=== PATIENT | male | born 1940 | race Caucasian/White ===

== ENCOUNTER 2017-11-27 07:05 | Day surgery (SDC) | payer MEDICARE, BC ==
[2017-11-22 09:04] VITALS: BMI 31.1
[~2017-11-27 07:05] MED LIST: LACTATED RINGERS 1,000 ML IV SCH; MOXIFLOXACIN HCL 0.5% DROPS 3 ML BTL OP ONE; PHENYLEPHRINE 2.5% OPHTH DRP 2ML OP NR; TETRACAINE 0.5% OPHTH (PF) DROPS 4 ML BTL OP ONE; TIMOLOL 0.5% OPHTH DROPS 5 ML BTL OP ONE
[2017-11-27 07:18] VITALS: TEMP 99.1
[2017-11-27] MEDS: CYCLOPENTOLATE 1% OPHTH SOLN 2 ML BTL OP ONE ×3 (07:26→07:39)
[2017-11-27] MEDS ORDERED: MIDAZOLAM 2 MG/2 ML VIAL ONE (08:19)
[2017-11-27] MEDS ORDERED: fentaNYL (PF) 50 MCG/ML 2 ML AMP ONE (08:19)
[2017-11-27] MEDS ORDERED: HYALURONATE SODIUM INTRAOCULAR 1 EACH SYRINGE (12MG/ML) INTRAOCULA ONE (08:33)
[2017-11-27] MEDS ORDERED: LIDOCAINE 1% (PF) 10MG/ML VIAL SQ ONE (08:34)
[2017-11-27] MEDS ORDERED: BALANCED SALT IRRIG SOLN COMB2 15 ML IRRIG.SOLN INTRAOCULA ONE (08:34)
[2017-11-27] MEDS ORDERED: EPINEPHrine (PF) 0.3 ML in BALANCED SALT IRRIG SOLN COMB2 500 ML IRRIGATION ONE (08:35)
--- NOTE | 2017-11-27 08:43 | P.OP ---
Date of Procedure: 11/27/17 Preoperative Diagnosis: NS & CS Postoperative Diagnosis: same Procedure(s) Performed: PIOL, OD Implants: PCB00 22.00 Anesthesia: MAC Surgeon: Bob Cruz Estimated Blood Loss (ml): 0 Pathology: none sent Condition: stable Disposition: same day Indications for Procedure: BLURRY VISION Operative Findings: No complications
[2017-11-27 09:00] VITALS: PULSE 48
[2017-11-27 09:07] VITALS: BP 136/84; RESP 18
--- NOTE | 2017-11-27 19:41 | OP ---
OPERATIVE REPORT DATE OF PROCEDURE: 11/27/2017 PREOPERATIVE DIAGNOSES:: Nuclear sclerosis, cortical sclerosis. POSTOPERATIVE DIAGNOSIS:: Same. OPERATION:: Clear cornea phacoemulsification of cataract right eye. ESTIMATED BLOOD LOSS:: Zero. SPECIMEN TAKEN:: None. NARRATIVE:: After obtaining the appropriate consent, the patient was brought to the Operating Room where the patient was placed under cardiac monitoring and prepped and draped in the usual sterile manner. At the 11 o'clock position, a 15 degree super sharp blade was used to create a paracentesis followed by instillation of 1% Xylocaine MPF 50:50 mix with BSS into the anterior chamber. This was followed by Amvisc to stabilize the anterior chamber. At the 9 o'clock position, a self-sealing corneal flap incision was created using 2.8 mm jaclyn keratome. A cystatome was used to initiate a continuous tear capsulorrhexis which was completed with the Utrata forceps. A Binkhorst cannula was used to hydrodissect the lens nucleus followed by hydrodelineation. Phacoemulsification of the lens was performed utilizing phacochop in 14.9 Seconds at 17 % power. The remaining cortical material was removed using the irrigation aspiration mode followed by additional 1% Xylocaine MPF into the anterior chamber followed by viscoelastic to stabilize the capsular bag. An FAREED PCB00 22.0-diopter posterior chamber lens was placed into the capsular bag without difficulty. The remaining viscoelastic material was removed from the anterior chamber with the irrigation/aspiration. Balanced salt solution was used to normalize the intraocular pressure. The incision was checked for watertight integrity. The patient then received two drops of 0.5% timolol followed by two drops Vigamox, was lightly patched and shielded in the usual manner. There were no complications from the procedure. The patient tolerated the procedure well and was returned to recovery in good condition. MMODL / IJN: [id number] /
== END 2017-11-27 09:34 | disposition home or self-care (01) ==
LOC: OR 07:05
PROVIDERS: ATTEND Ophthalmology
DX: H25.13 Age-related nuclear cataract, bilateral (principal); H16.223 Keratoconjunctivitis sicca, not specified as Sjogren's, bilateral; H40.003 Preglaucoma, unspecified, bilateral; H52.03 Hypermetropia, bilateral; H52.4 Presbyopia; H01.009 Unspecified blepharitis unspecified eye, unspecified eyelid; F17.290 Nicotine dependence, other tobacco product, uncomplicated; E03.9 Hypothyroidism, unspecified; F41.9 Anxiety disorder, unspecified; Z79.899 Other long term (current) drug therapy; Z88.5 Allergy status to narcotic agent
CPT/HCPCS: 66984; C1780; J2250; J0171; J3010; J2001

== ENCOUNTER 2017-12-11 08:01 | Day surgery (SDC) | payer MEDICARE, BC ==
[2017-12-06 12:01] VITALS: BMI 31.1
[~2017-12-11 08:01] MED LIST changes: -LACTATED RINGERS 1,000 ML IV SCH; -PHENYLEPHRINE 2.5% OPHTH DRP 2ML OP NR
[2017-12-11] MEDS ORDERED: LACTATED RINGERS 1,000 ML IV SCH (08:14)
[2017-12-11 08:25] VITALS: RESP 16; TEMP 98.2
[2017-12-11] MEDS ORDERED: LIDOCAINE 1% 20 ML VIAL (10MG/ML) FOR IV START INTRADERMA ONE (08:31)
[2017-12-11] MEDS: CYCLOPENTOLATE 1% OPHTH SOLN 2 ML BTL OP ONE ×3 (08:34→08:46)
[2017-12-11] MEDS: PHENYLEPHRINE 2.5% OPHTH DRP 2ML OP NR ×3 (08:37→08:49)
[2017-12-11] MEDS ORDERED: fentaNYL (PF) 50 MCG/ML 2 ML AMP ONE (09:48)
[2017-12-11] MEDS ORDERED: MIDAZOLAM 2 MG/2 ML VIAL ONE (09:48)
[2017-12-11] MEDS ORDERED: BALANCED SALT IRRIG SOLN COMB2 15 ML IRRIG.SOLN INTRAOCULA ONE (09:52)
[2017-12-11] MEDS ORDERED: HYALURONATE SODIUM INTRAOCULAR 1 EACH SYRINGE (12MG/ML) INTRAOCULA ONE (09:52)
[2017-12-11] MEDS ORDERED: LIDOCAINE 1% (PF) 10MG/ML VIAL MISCELLANE ONE (09:53)
[2017-12-11] MEDS ORDERED: EPINEPHrine (PF) 0.3 ML in BALANCED SALT IRRIG SOLN COMB2 500 ML IRRIGATION ONE (09:53)
--- NOTE | 2017-12-11 10:14 | P.OP ---
Date of Procedure: 12/11/17 Preoperative Diagnosis: NS & CS Postoperative Diagnosis: same Procedure(s) Performed: PIOL, OS Implants: PCB00 22.00 Anesthesia: MAC Surgeon: Bob Cruz Estimated Blood Loss (ml): 0 Pathology: none sent Condition: stable Disposition: same day Indications for Procedure: blurry vision Operative Findings: No complications
[2017-12-11 10:34] VITALS: BP 135/77; PULSE 52
--- NOTE | 2017-12-11 14:33 | OP ---
OPERATIVE REPORT DATE OF SURGERY: 12/11/17 SURGEON: Dr. Bob Cruz PREOPERATIVE DIAGNOSIS:: Nuclear sclerosis. Cortical sclerosis. POSTOPERATIVE DIAGNOSIS:: Nuclear sclerosis, cortical sclerosis. OPERATION:: Clear cornea phacoemulsification of cataract OS eye. ESTIMATED BLOOD LOSS:: Zero. SPECIMEN TAKEN:: None. NARRATIVE:: After obtaining the appropriate consent, the patient was brought to the Operating Room where the patient was placed under cardiac monitoring and prepped and draped in the usual sterile manner. At the 5 o'clock position a 15 degree super sharp blade was used to create a paracentesis followed by instillation of 1% Xylocaine MPF 50:50 mix with BSS into the anterior chamber. This was followed by Amvisc to stabilize the anterior chamber. At the 3 o'clock position a self-sealing corneal flap incision was created using 2.8 mm jaclyn keratome. A cystatome was used to initiate a continuous tear capsulorrhexis which was completed with the Utrata forceps. A Binkhorst cannula was used to hydrodissect the lens nucleus followed by hydrodelineation. Phacoemulsification of the lens was performed utilizing phacochop in 17.41 seconds at 20% power. The remaining cortical material was removed using the irrigation aspiration mode followed by additional 1% Xylocaine MPF into the anterior chamber followed by viscoelastic to stabilize the capsular bag. An FAREED PZB 00 22.0 diopter posterior chamber lens was placed into the capsular bag without difficulty. The remaining viscoelastic material was removed from the anterior chamber with the irrigation/aspiration. Balanced salt solution was used to normalize the intraocular pressure. The incision was checked for watertight integrity. The patient then received two drops of 0.5% timolol followed by two drops Vigamox, was lightly patched and shielded in the usual manner. There were no complications from the procedure. The patient tolerated the procedure well and was returned to recovery in good condition. MMODL / IJN: [id number] /
== END 2017-12-11 11:06 | disposition home or self-care (01) ==
LOC: OR 08:01
PROVIDERS: ATTEND Ophthalmology
DX: H25.12 Age-related nuclear cataract, left eye (principal); H25.012 Cortical age-related cataract, left eye; H16.223 Keratoconjunctivitis sicca, not specified as Sjogren's, bilateral; H40.003 Preglaucoma, unspecified, bilateral; H52.03 Hypermetropia, bilateral; H52.4 Presbyopia; H01.009 Unspecified blepharitis unspecified eye, unspecified eyelid; Z96.1 Presence of intraocular lens; E03.9 Hypothyroidism, unspecified; F17.290 Nicotine dependence, other tobacco product, uncomplicated; Z79.890 Hormone replacement therapy; Z79.899 Other long term (current) drug therapy; Z88.5 Allergy status to narcotic agent

== ENCOUNTER → 2020-10-18 | Outpatient (CLI) | payer MEDICARE, BC ==
--- NOTE | 2020-10-18 15:32 | XR ---
EXAM TYPE: LUMBAR SPINE X RAY SERIES COMPARISON: NONE HISTORY: Pain TECHNIQUE: 4 views are submitted. FINDINGS: Hypertrophic and degenerative changes at all levels most marked at L3-4, L4-5. Multilevel facet arthr opathy and hypertrophic spurring. No compression deformities. Pedicles intact. Mild diffuse osteopeni a. IMPRESSION: 1. Multilevel degenerative disc disease with severe changes at L3-4 and L4-L5. Foraminal encroachment suspected. Correlate with MRI as quickly warranted.
--- NOTE | 2020-10-18 15:33 | XR ---
EXAMINATION TYPE: XR thoracic spine complete DATE OF EXAM: 10/18/2020 COMPARISON: NONE HISTORY: Pain TECHNIQUE: 3 views submitted FINDINGS: There is multilevel moderate to severe hypertrophic and degenerative disc disease. No compression def ormities. Pedicles intact. Ectasia of the aorta noted. IMPRESSION: 1. Multilevel hypertrophic and degenerative changes.
== END | disposition home or self-care (01) ==
LOC: RADXRMAIN 14:13
PROVIDERS: ATTEND Internal Medicine Geriatric Medicine
DX: M51.36 Other intervertebral disc degeneration, lumbar region (principal); M47.816 Spondylosis without myelopathy or radiculopathy, lumbar region
CPT/HCPCS: 72072; 72100

== ENCOUNTER → 2020-12-02 | Outpatient (CLI) | payer MEDICARE, BC | END | disposition home or self-care (01) | LOC: LABWHC1 13:47 | PROVIDERS: ATTEND Urology | DX: R97.20 Elevated prostate specific antigen [PSA] (principal) | CPT/HCPCS: 36415; 84153 ==

== ENCOUNTER → 2021-02-20 | Outpatient (CLI) | payer MEDICARE ==
--- NOTE | 2021-02-21 09:03 | ECHOF ---
Referral Reason:G45.9 Transient cerebral ischemic attack MEASUREMENTS -------- HEIGHT: 182.9 cm WEIGHT: 110.2 kg BP: RVIDd: 4.6 cm (< 3.3) IVSd: 1.4 cm (0.6 - 1.1) LVIDd: 3.6 cm (3.9 - 5.3) LVPWd: 1.3 cm (0.6 - 1.1) IVSs: 2.2 cm LVIDs: 2.8 cm LVPWs: 1.7 cm LAESV Index (A-L): 19.58 ml/m Ao Diam: 3.6 cm (2.0 - 3.7) AV Cusp: 1.1 cm (1.5 - 2.6) MV EXCURSION: 11.640 mm (> 18.000) MV EF SLOPE: 31 mm/s (70 - 150) EPSS: 0.9 cm MV E Asa: 0.56 m/s MV DecT: 192 ms MV A Asa: 0.81 m/s MV E/A Ratio: 0.69 RAP: 5.00 mmHg RVSP: 30.23 mmHg FINDINGS -------- Sinus rhythm. This was a technically difficult study with suboptimal views. The left ventricular size is normal. There is severe concentric left ventricular hypertrophy. Ove rall left ventricular systolic function is normal with, an EF between 55 - 60 %. The right ventricle is severely enlarged. Normal LA size by volume 22+/-6 ml/m2. The right atrium was not well visualized. 5.0mg of Lumason was utilized for enhancement of images Interatrial and interventricular septum intact. There is moderate aortic valve sclerosis. There is no evidence of aortic regurgitation. There is no evidence of aortic stenosis. No mitral regurgitation. Mild tricuspid regurgitation present. There is no evidence of pulmonary hypertension. The right v entricular systolic pressure, as measured by Doppler, is 30.23mmHg. There is no pulmonic regurgitation present. The aortic root size is normal. IVC Not well visulized. There is no pericardial effusion. CONCLUSIONS -------- 1. The left ventricular size is normal. 2. There is severe concentric left ventricular hypertrophy. 3. Overall left ventricular systolic function is normal with, an EF between 55 - 60 %. 4. The right ventricle is severely enlarged. 5. There is moderate aortic valve sclerosis. 6. Mild tricuspid regurgitation present. AUTOMATIC GRINDING MACHINE OPERATOR: June Garcia RDCS
== END | disposition home or self-care (01) ==
LOC: RADECHMAIN 12:29
PROVIDERS: ATTEND Internal Medicine Geriatric Medicine
DX: I07.1 Rheumatic tricuspid insufficiency (principal)
CPT/HCPCS: 93270; C8929; Q9950; 93306

== ENCOUNTER → 2021-02-24 | Outpatient (CLI) | payer MEDICARE ==
--- NOTE | 2021-02-24 15:13 | US ---
EXAMINATION TYPE: US carotid duplex BILAT DATE OF EXAM: 02/24/2021 COMPARISON: NONE CLINICAL HISTORY: G45.9 Transient cerebral ischemic attack. EXAM MEASUREMENTS: RIGHT: Peak Systolic Velocity (PSV) cm/sec ----- Right CCA: 70.0 ----- Right ICA: 70.4 ----- Right ECA: 59.0 ICA/CCA ratio: 1.0 RIGHT: End Diastole cm/sec ----- Right CCA: 20.6 ----- Right ICA: 29.3 ----- Right ECA: 14.2 LEFT: Peak Systolic Velocity (PSV) cm/sec ----- Left CCA: 87.1 ----- Left ICA: 80.7 ----- Left ECA: 59.8 ICA/CCA ratio: 0.9 LEFT: End Diastole cm/sec ----- Left CCA: 35.0 ----- Left ICA: 36.9 ----- Left ECA: 16.6 VERTEBRALS (direction of flow): Right Vertebral: Antegrade Left Vertebral: Antegrade Rhythm: Normal No significant stenosis. IMPRESSION: No evidence for hemodynamically significant stenosis. Criteria for Assigning % of Stenosis / Diameter reduction (Estimation based on the indirect measurements of the internal carotid artery velocities (ICA PSV). 1. Normal (no stenosis)=ICA PSV < 125 cm/s: ratio < 2.0: ICA EDV<40 cm/s. 2. Less than 50% stenosis=ICA PSV < 125 cm/s: ratio < 2.0: ICA EDV<40 cm/s. 3. 50 to 69% stenosis=ICA PSV of 125 to 230 cm/s: ration 2.0 ? 4.0: ICA EDV 40-100 cm/s. 4. Greater than 70% stenosis to near occlusion= ICA PSV > 230 cm/s: ratio > 4.0: ICA EDV > 100 cm/s. 5. Near occlusion= ICA PSV velocities may be low or undetectable: variable ratio and ICA EDV. 6. Total occlusion=unable to detect flow.
== END | disposition home or self-care (01) ==
LOC: RADUSWWP 14:22
PROVIDERS: ATTEND Internal Medicine Geriatric Medicine
DX: G45.9 Transient cerebral ischemic attack, unspecified (principal)
CPT/HCPCS: 93880

== ENCOUNTER → 2021-04-19 | Outpatient (CLI) | payer MEDICARE ==
[2021-04-19 12:13] LABS: Basophils # (A) 0.04 X 10*3/uL (0.00-0.10); Basophils % (A) 0.6 %; Eosinophils # (A) 0.31 X 10*3/uL (0.04-0.35); HCT 42.8 % (39.6-50.0); Lymphocytes # (A) 2.18 X 10*3/uL (0.90-5.00); Lymphocytes % (A) 34.9 %; MCH 30.5 pg (27.0-32.0); MCHC 32.7 g/dL (32.0-37.0); MCV 93.2 fL (80.0-97.0); Mean Platelet Volume 10.5 fL (9.5-12.2); Monocytes # (A) 0.62 X 10*3/uL (0.20-1.00); Monocytes % (A) 9.9 %; Neutrophils # (A) 3.07 X 10*3/uL (1.80-7.70); Neutrophils % (A) 49.3 %; Platelet Count 239 X 10*3/uL (140-440); RBC 4.59 X 10*6/uL (4.40-5.60); RDW 12.9 % (11.5-14.5); WBC 6.24 X 10*3/uL (4.50-10.00)
--- NOTE | 2021-04-19 12:45 | XR ---
EXAMINATION TYPE: XR chest 2V DATE OF EXAM: 04/19/2021 COMPARISON: Chest x-ray dated 12/08/2014 HISTORY: R06.02 TECHNIQUE: Frontal and lateral views of the chest are obtained. FINDINGS: There is no focal air space opacity, pleural effusion, or pneumothorax seen. The cardiac silhouette size is within normal limits. The osseous structures are intact, postop changes are pres ent in the right shoulder. IMPRESSION: No acute cardiopulmonary process.
[2021-04-19 14:40] LABS: African American GFR (CKD) 64.9 (60.0-200.0); Albumin 4.2 g/dL (3.80-4.90); Albumin/Globulin Ratio 1.83 (1.60-3.17); Anion Gap 6.3 mmol/L (4.00-12.00); Calcium 8.8 mg/dL (8.7-10.3); Carbon Dioxide 24.7 mmol/L (21.6-31.8); Chol/HDL Ratio 3.42; Globulin 2.3 g/dL (1.6-3.3); LDL Cholesterol,Calculated 96.6 mg/dL (0.0-131.0); Potassium 4.7 mmol/L (3.5-5.5); Total Bilirubin 0.5 mg/dL (0.2-1.2); Total Protein 6.5 g/dL (6.2-8.2); VLDL Calculation 29.4 mg/dL (5.00-40.00)
[2021-04-19 16:28] LABS: Hemoglobin A1C 5.5 % (4.0-6.0)
== END | disposition home or self-care (01) ==
LOC: LABWHC1 07:48
PROVIDERS: ATTEND Internal Medicine Geriatric Medicine
DX: G45.9 Transient cerebral ischemic attack, unspecified (principal); R73.9 Hyperglycemia, unspecified; R06.02 Shortness of breath
CPT/HCPCS: 36415; 71046; 80053; 80061; 83036; 84443; 85025

== ENCOUNTER 2021-05-10 07:59 | Emergency (ER) | payer MEDICARE ==
[2021-05-10 08:07] VITALS: BP 120/87; PULSE 70; RESP 18; TEMP 98.2
--- NOTE | 2021-05-10 08:31 | ED ---
Fall HPI - General Chief Complaint: Fall Stated Complaint: fall Time Seen by Provider: 05/10/21 08:03 Source: patient, EMS, RN notes reviewed Mode of arrival: EMS Limitations: no limitations - History of Present Illness Initial Comments: This an 81-year-old male presents emergency from via EMS with chief complaint of a fall. Patient states that he was walking too fast His feet caught up tripped falling forward. He states he only has some mild dental pain. Patient does have noted laceration, abrasions to his face. Patient denies any significant h eadache dizziness neck pain back pain or extremity injury. He states his tetanus is up-to-date. - Related Data Home Medications Medication Instructions Recorded Confirmed Levothyroxine Sodium [Synthroid] 200 mcg PO DAILY 12/08/14 12/11/17 Sertraline HCl [Zoloft] 100 mg PO HS 12/08/14 12/11/17 clonazePAM [KlonoPIN] 0.25 mg PO QAM 11/22/17 12/11/17 Allergies Allergy/AdvReac Type Severity Reaction Status Date / Time codeine Allergy Rash/Hives, Verified 12/06/17 11:57 swelling of face Review of Systems ROS Statement: Those systems with pertinent positive or pertinent negative responses have been documented in the HPI. ROS Other: All systems not noted in ROS Statement are negative. Past Medical History Past Medical History: CVA/TIA, Eye Disorder, Thyroid Disorder Additional Past Medical History / Comment(s): Cataract History of Any Multi-Drug Resistant Organisms: None Reported Past Surgical History: Adenoidectomy, Joint Replacement, Tonsillectomy Additional Past Surgical History / Comment(s): Cataract R eye,R shoulder Past Anesthesia/Blood Transfusion Reactions: No Reported Reaction Past Psychological History: No Psychological Hx Reported Smoking Status: Current some day smoker Past Alcohol Use History: None Reported Past Drug Use History: None Reported - Past Family History Mother Family Medical History: No Reported History General Exam General appearance: alert, in no apparent distress Head exam: Present: atraumatic, normocephalic, normal inspection Eye exam: Present: normal appearance, PERRL, EOMI. Absent: scleral icterus, conjunctival injection, periorbital swelling ENT exam: Present: mucous membranes moist, TM's normal bilaterally, other (Abrasion of the upper lip region, facial abrasion). Absent: normal exam, normal oropharynx (Dental fracture #10) Neck exam: Present: normal inspection. Absent: tenderness, meningismus, full ROM (Patient in c-collar), lymphadenopathy Respiratory exam: Present: normal lung sounds bilaterally. Absent: respiratory distress, wheezes, rales, rhonchi, stridor Cardiovascular Exam: Present: regular rate, normal rhythm, normal heart sounds. Absent: systolic murmur, diastolic murmur, rubs, gallop, clicks Neurological exam: Present: alert, oriented X3, CN II-XII intact, reflexes normal. Absent: motor sensory deficit Skin exam: Present: warm, dry, intact, normal color. Absent: rash Course Vital Signs 05/10/21 08:02 Temperature 98.2 F Pulse Rate 70 Respiratory 18 Rate Blood Pressure 120/87 O2 Sat by Pulse 96 Oximetry Medical Decision Making - Medical Decision Making CT of the facial bones, brain and C-spine unremarkable. Patient does have dental fracture. Patient will follow-up with dentist. Return parameters were discussed. Disposition Clinical Impression: Fall, Dental trauma, Facial abrasion Disposition: HOME SELF-CARE Condition: Stable Instructions (If sedation given, give patient instructions): Acute Dental Trauma (ED) Additional Instructions: Please return to the Emergency Department if symptoms worsen or any other concerns. Is patient prescribed a controlled substance at d/c from ED?: No Referrals: Alvaro Grant MD [Primary Care Provider] - 1-2 days Time of Disposition: 09:34
--- NOTE | 2021-05-10 09:19 | CT ---
EXAMINATION TYPE: CT brain gail simpson DATE OF EXAM: 05/10/2021 COMPARISON: 09/12/2015 HISTORY: Fall CT DLP: 1314.[address] of the brain was performed. The ventricles, basal cisterns and sulci overlying the cerebral convexities demonstrate mild enlargem ent. There is no evidence for intracranial hemorrhage or sulcal effacement. There is decreased attenuatio n about the periventricular white matter and deep white matter of both cerebral hemispheres, compatib le with chronic small vessel ischemia. No mass effects are seen. If symptoms persist consider MRI. Osseous calvarium is intact. IMPRESSION: 1. Age related atrophic and chronic small vessel ischemic change without acute intracranial process seen at this time. CT Cervical Spine: Unenhanced CT of the cervical spine was performed with bone and soft tissue window settings submitted . Coronal and sagittal reconstruction is obtained. There is normal alignment and prevertebral soft tissues. No evidence for acute cervical fracture . Scattered degenerative disc disease and spondylosis. Biapical scarring. IMPRESSION: 1. No evidence for acute fracture or subluxation of the cervical spine.
--- NOTE | 2021-05-10 09:22 | CT ---
EXAMINATION TYPE: CT facial bones wo con DATE OF EXAM: 05/10/2021 COMPARISON: None HISTORY: Fall CT DLP: included in DLP of BR/C-SP mGycm Unenhanced CT of the facial bones was performed in the axial and coronal planes. Bone and soft tissu e window settings are submitted. No significant soft tissue swelling is appreciated. I do not see evidence for displaced facial bone fracture or depressed facial bone fracture. The globes are intact. Paranasal sinuses are well-aerated. IMPRESSION: 1. No evidence for depressed or displaced facial bone fracture.
== END 2021-05-10 09:40 | disposition home or self-care (01) ==
LOC: EC 07:59
DX: S02.5XXA Fracture of tooth (traumatic), initial encounter for closed fracture (principal); S00.511A Abrasion of lip, initial encounter; Z86.73 Personal history of transient ischemic attack (TIA), and cerebral infarction without residual deficits; W01.10XA Fall on same level from slipping, tripping and stumbling with subsequent striking against unspecified object, initial encounter; Y93.01 Activity, walking, marching and hiking
CPT/HCPCS: 70450; 70486; 72125; 99284

== ENCOUNTER → 2021-05-25 | Outpatient (CLI) | payer MEDICARE ==
[~2021-05-25] MED LIST changes: -MOXIFLOXACIN HCL 0.5% DROPS 3 ML BTL OP ONE; +REGADENOSON 0.4 MG/5 ML SYRINGE IV PRN; -TETRACAINE 0.5% OPHTH (PF) DROPS 4 ML BTL OP ONE; -TIMOLOL 0.5% OPHTH DROPS 5 ML BTL OP ONE
--- NOTE | 2021-05-25 13:40 | NM ---
EXAMINATION TYPE: NM stress lexiscan cardiolite DATE OF EXAM: 05/25/2021 COMPARISON: NONE HISTORY: Shortness of breath TECHNIQUE: After the intravenous administration of 10.0 mCi Tc 99m Sestamibi - Cardiolite resting SP ECT images acquired 45 minutes post injection. The patient received 0.4mg Lexiscan, 25.8 mCi Tc 99m Sestamibi - Stress images obtained [address] injection FINDINGS: Review of stress and rest SPECT images demonstrates uptake involving the inferior wall the myocardium most likely artifactual correlate clinically to exclude previous infarction. Tiny area of stress-ind uced reversible ischemia not excluded.. Gated analysis shows normal wall motion with an estimated le ft ventricular ejection fraction of 59 %. Report called to clinician's office 1:36 PM 04/24/2021. IMPRESSION: 1. Reduced uptake involving the inferior wall on both stress and rest images may be artifactual corre late clinically to exclude previous infarction. Tiny area of stress-induced reversible ischemia invol ving the inferior lateral wall not excluded.
--- NOTE | 2021-05-25 18:13 | P.STRESS ---
- Stress Test Note Stress Test Results/Findings: Exam Performed: NM stress lexiscan cardiolite Exam Date: 05/25/21 Reason for Exam: Long time smoker Height: 6 ft Weight: 108.862 kg Protocol: Lexiscan Stage: na Duration of Exercise: na Resting Heart Rate: 57 Resting Blood Pressure: 105/79 Maximum Achieved Heart Rate: 81 Maximum Achieved Blood Pressure: 112/72 85% PMHR: 117 100% PMHR: 138 METS: na Technologist Comment: Stress Test Results/Findings: At baseline EKG showed normal sinus rhythm, normal axis, poor R-wave progression, no significant ST or T-wave abnormalities. Patient recieved IV infusion of Lexiscan 0.4mg and at peak infusion EKG showed no significant change from baseline. Conclusions: 1. Normal EKG response to Lexiscan infusion 2. Nuclear imaging to be reported separately.
== END | disposition home or self-care (01) ==
LOC: RADNMMAIN 08:15
PROVIDERS: ATTEND Internal Medicine Geriatric Medicine
DX: R06.02 Shortness of breath (principal); F17.200 Nicotine dependence, unspecified, uncomplicated
CPT/HCPCS: 93017; 78452; A9500; J2785

== ENCOUNTER → 2021-11-23 | Outpatient (CLI) | payer MEDICARE | END | disposition home or self-care (01) | LOC: LABWHC1 13:45 | PROVIDERS: ATTEND Urology | DX: R97.20 Elevated prostate specific antigen [PSA] (principal) | CPT/HCPCS: 36415; 84153 ==

== ENCOUNTER 2022-01-25 15:50 | Emergency (ER) | payer MEDICARE ==
[2022-01-25 15:55] VITALS: RESP 18; TEMP 99
--- NOTE | 2022-01-25 17:18 | CT ---
EXAMINATION TYPE: CT brain wo con CT DLP: 1094.4 mGycm, Automated exposure control for dose reduction was used. DATE OF EXAM: 01/25/2022 4:59 PM COMPARISON: Prior CT Brain from 05/10/2021. CLINICAL INDICATION:Male, 81 years old with history of fall, Fall, on plavix TECHNIQUE: Brain: Multiple axial CT images of the brain were obtained without IV contrast. FINDINGS: Brain: Extra-axial spaces: No abnormal extra-axial fluid collections. Ventricular system: Dilatation in proportion to cerebral atrophy. Cerebral parenchyma: No acute intraparenchymal hemorrhage or mass effect. The carty-white junction is well differentiated. Scattered hypoattenuating areas are seen within the white matter. Cerebellum: Cerebellar atrophy Mass effect: No evidence of midline shift. Intracranial vasculature: Atherosclerotic calcifications of the intracranial vessels. Soft tissues: Normal. Calvarium/osseous structures: No depressed skull fracture. Paranasal sinuses and mastoid air cells: Mild scattered paranasal sinus disease. Visualized orbits: Bilateral aphakia IMPRESSION: 1. No acute intracranial process. 2. Nonspecific white matter changes, likely secondary to chronic small vessel ischemic disease.
--- NOTE | 2022-01-25 17:19 | XR ---
EXAMINATION TYPE: XR chest 2V DATE OF EXAM: 01/25/2022 5:03 PM COMPARISON:Chest radiographs from 04/19/2021 TECHNIQUE: XR chest 2V Frontal and lateral views of the chest. CLINICAL INDICATION:Male, 81 years old with history of fall; FINDINGS: Lungs/Pleura: There is no evidence of pleural effusion, focal consolidation, or pneumothorax. Pulmonary vascularity: Unremarkable. Heart/mediastinum: Cardiomediastinal silhouette is unremarkable. Musculoskeletal: No acute osseous pathology. Right shoulder reverse arthroplasty. IMPRESSION: No acute cardiopulmonary disease/process.
--- NOTE | 2022-01-25 17:21 | XR ---
EXAMINATION TYPE: XR wrist complete LT DATE OF EXAM: 01/25/2022 5:03 PM INDICATION: Patient age:Male; 81 years old; Reason for study: Trauma; COMPARISON: Hand radiograph same day TECHNIQUE: 3 views of the left wrist. FINDINGS: No acute osseous pathology, joint dislocation, or joint effusion. No evidence of any soft tissue swelling is seen. Atherosclerosis of the arterial vasculature. Scattered degenerative changes throughout the joints of the hand. Well-corticated calcific density posterior to the carpals likely r epresenting remote triquetrum injury. IMPRESSION: 1. No acute osseous pathology. 2. Scattered mild osteoarthritic changes.
--- NOTE | 2022-01-25 17:22 | XR ---
EXAMINATION TYPE: XR hand complete LT DATE OF EXAM: 01/25/2022 5:03 PM INDICATION: Patient age:Male; 81 years old; Reason for study: fall. COMPARISON: Hand radiograph 11/12/2014 TECHNIQUE: 3 views of the left hand were obtained. FINDINGS: Normal alignment of the visualized joints. No acute osseous pathology is identified. No e vidence of soft tissue swelling. Atherosclerosis of the arterial vasculature. Scattered degenerative changes are seen throughout the joints of the hand. IMPRESSION: 1. No acute osseous pathology. 2. Scattered osteoarthritic changes throughout the hand.
--- NOTE | 2022-01-25 17:37 | ED ---
General Adult HPI - General Chief complaint: Fall Stated complaint: Fall Time Seen by Provider: 01/25/22 16:00 Source: patient, RN notes reviewed, old records reviewed Mode of arrival: ambulatory Limitations: no limitations - History of Present Illness Initial comments: This is an 81-year-old male who presents emergency department stating that he fell in the parking lot he tripped on something. Patient states prior to the fall he was having no problems. Patient states he landed hurt his left wrist right ribs and bumped his chin and lip on the ground. Patient denies any loss of consciousness. Patient denies any. Of time where he was dazed. Patient denies any headache patient denies any neck pain. Patient denies any numbness or weakness. Patient denies any shortness of breath or difficulty breathing. Patient states the right lateral aspect of his chest wall is mildly tender. Patient also complains of posterior left wrist pain. Patient states there is a small laceration on the inside of his bottom lip but he does not want any repair he states that it stopped bleeding and he is fine but the way it is. Patient states he is up-to-date on his tetanus shot. - Related Data Home Medications Medication Instructions Recorded Confirmed Levothyroxine Sodium [Synthroid] 200 mcg PO DAILY 12/08/14 12/11/17 Sertraline HCl [Zoloft] 100 mg PO HS 12/08/14 12/11/17 clonazePAM [KlonoPIN] 0.25 mg PO QAM 11/22/17 12/11/17 Allergies Allergy/AdvReac Type Severity Reaction Status Date / Time codeine Allergy Rash/Hives, Verified 01/25/22 15:55 swelling of face Review of Systems ROS Statement: Those systems with pertinent positive or pertinent negative responses have been documented in the HPI. ROS Other: All systems not noted in ROS Statement are negative. Past Medical History Past Medical History: CVA/TIA, Eye Disorder, Thyroid Disorder Additional Past Medical History / Comment(s): Cataract History of Any Multi-Drug Resistant Organisms: None Reported Past Surgical History: Adenoidectomy, Joint Replacement, Tonsillectomy Additional Past Surgical History / Comment(s): Cataract R eye,R shoulder Past Anesthesia/Blood Transfusion Reactions: No Reported Reaction Past Psychological History: No Psychological Hx Reported Smoking Status: Current some day smoker Past Alcohol Use History: None Reported Past Drug Use History: None Reported - Past Family History Mother Family Medical History: No Reported History General Exam - General Exam Comments Initial Comments: GENERAL: Patient is well-developed and well-nourished. Patient is nontoxic and well- hydrated and is in mild distress. ENT: Neck is soft and supple. No significant lymphadenopathy is noted. Oropharynx is clear. Moist mucous membranes. Neck has full range of motion without eliciting any pain. EYES: The sclera were anicteric and conjunctiva were pink and moist. Extraocular movements were intact and pupils were equal round and reactive to light. Eyelids were unremarkable. PULMONARY: Unlabored respirations. Good breath sounds bilaterally. No audible rales rhonchi or wheezing was noted. CARDIOVASCULAR: There is a regular rate and rhythm without any murmurs gallops or rubs. Patient has some mild right lateral rib pain at about ribs 7 and 8. ABDOMEN: Soft and nontender with normal bowel sounds. SKIN: She has about a half a centimeter laceration closed surface of the inside of his lower lip. Bleeding is stopped. Patient also has a superficial abrasion on his chin. NEUROLOGIC: Patient is alert and oriented x3. Cranial nerves II through XII are grossly intact. Motor and sensory are also intact. Normal speech, volume and content. Symmetrical smile. MUSCULOSKELETAL: Patient has some posterior wrist pain on the left no swelling no deformity noted LYMPHATICS: No significant lymphadenopathy is noted PSYCHIATRIC: Normal psychiatric evaluation. Limitations: no limitations Course Vital Signs 01/25/22 15:52 Temperature 99 F Pulse Rate 64 Respiratory 18 Rate Blood Pressure 137/82 O2 Sat by Pulse 98 Oximetry Medical Decision Making - Medical Decision Making CT of the brain shows no acute abnormality. X-ray of the hand and wrist showed no acute abnormality. X-ray the chest shows no acute abnormalities. I will back into reevaluate the patient I gave him his results of the scans he stated he felt could not go home and he can reiterate did not eat any repair of his lip. Disposition Clinical Impression: Fall, Wrist sprain, Laceration of lip without complication, Abrasion Disposition: HOME SELF-CARE Condition: Good Instructions (If sedation given, give patient instructions): Fall Prevention for Older Adults (ED), Abrasion (ED) Is patient prescribed a controlled substance at d/c from ED?: No Referrals: Alvaro Grant MD [Primary Care Provider] - 1-2 days Time of Disposition: 17:36
[2022-01-25 17:50] VITALS: BP 128/78; PULSE 78
== END 2022-01-25 17:49 | disposition home or self-care (01) ==
LOC: EC 15:50
DX: S01.511A Laceration without foreign body of lip, initial encounter (principal); S63.502A Unspecified sprain of left wrist, initial encounter; F17.200 Nicotine dependence, unspecified, uncomplicated; W01.0XXA Fall on same level from slipping, tripping and stumbling without subsequent striking against object, initial encounter; Y92.481 Parking lot as the place of occurrence of the external cause
CPT/HCPCS: 70450; 71046; 99284

== ENCOUNTER 2022-05-11 10:28 | Emergency (ER) | payer MEDICARE ==
[2022-05-11 10:44] VITALS: BP 117/70; PULSE 71; RESP 18; TEMP 97.9
--- NOTE | 2022-05-11 11:00 | ED ---
Fall HPI - General Chief Complaint: Fall Stated Complaint: Fall Time Seen by Provider: 05/11/22 10:46 Source: patient Mode of arrival: ambulatory - History of Present Illness Initial Comments: Patient is an 82-year-old male presenting for evaluation post fall. Patient was getting out of bed this morning, when he tripped and hit his right side of his head against the wall. There is no loss of consciousness, patient is on Plavix. Patient also states that over the last day or so he has felt increasing weakness in his bilateral arms and legs. He denies any nausea, vomiting, chest pain, shortness of breath, palpitations, numbness, tingling, back pain, abdominal pain, dysuria, hematuria, diarrhea, hematochezia, melena. - Related Data Home Medications Medication Instructions Recorded Confirmed Levothyroxine Sodium [Synthroid] 200 mcg PO SUMOTUTHSA 12/08/14 05/11/22 Sertraline HCl [Zoloft] 100 mg PO DAILY 12/08/14 05/11/22 Cholecalciferol [Vitamin D3 (25 25 mcg PO DAILY 05/11/22 05/11/22 Mcg = 1000 Iu)] Clopidogrel [Plavix] 75 mg PO DAILY 05/11/22 05/11/22 Fenofibrate Nanocrystallized 145 mg PO DAILY 05/11/22 05/11/22 [Fenofibrate] Levothyroxine Sodium [Synthroid] 300 mcg PO WEFR 05/11/22 05/11/22 Allergies Allergy/AdvReac Type Severity Reaction Status Date / Time codeine Allergy Rash/Hives, Verified 05/11/22 12:08 swelling of face Review of Systems ROS Statement: Those systems with pertinent positive or pertinent negative responses have been documented in the HPI. ROS Other: All systems not noted in ROS Statement are negative. Past Medical History Past Medical History: CVA/TIA, Eye Disorder, Thyroid Disorder Additional Past Medical History / Comment(s): Cataract History of Any Multi-Drug Resistant Organisms: None Reported Past Surgical History: Adenoidectomy, Joint Replacement, Tonsillectomy Additional Past Surgical History / Comment(s): Cataract R eye,R shoulder Past Anesthesia/Blood Transfusion Reactions: No Reported Reaction Past Psychological History: No Psychological Hx Reported Smoking Status: Current some day smoker Past Alcohol Use History: None Reported Past Drug Use History: None Reported - Past Family History Mother Family Medical History: No Reported History General Exam Limitations: no limitations General appearance: alert, in no apparent distress Head exam: Present: atraumatic, normocephalic, normal inspection Eye exam: Present: normal appearance, PERRL, EOMI. Absent: scleral icterus, periorbital swelling Pupils: Present: normal accommodation Neck exam: Present: normal inspection, full ROM Respiratory exam: Present: normal lung sounds bilaterally. Absent: respiratory distress, wheezes, rales, rhonchi, stridor Cardiovascular Exam: Present: regular rate, normal rhythm, normal heart sounds. Absent: systolic murmur, diastolic murmur, rubs, gallop, clicks GI/Abdominal exam: Present: soft. Absent: distended, tenderness, guarding, rebound, rigid Neurological exam: Present: alert, oriented X3, CN II-XII intact Expanded Patient oriented to: Present: person, place, time Speech: Present: fluid speech Cranial nerves: EOM's Intact: Normal, Facial Sensation: Normal Cerebellar function: Finger to Nose: Normal, Heel to [place]: Normal Sensory exam: Upper Extremity Light Touch: Normal, Lower Extremity Light Touch: Normal Motor strength exam: RUE: 5, LUE: 5, RLE: 5, LLE: 5 Eye Response: (4) open spontaneously Motor Response: (6) obeys commands Verbal Response: (5) oriented [place] Total: 15 Psychiatric exam: Present: normal affect, normal mood Skin exam: Present: warm, dry, intact, normal color. Absent: rash Course Vital Signs 05/11/22 10:40 Temperature 97.9 F Pulse Rate 71 Respiratory 18 Rate Blood Pressure 117/70 O2 Sat by Pulse 97 Oximetry Medical Decision Making - Medical Decision Making Patient is an 82-year-old male presenting for evaluation post fall. Patient was trying to out of bed this morning when he tripped and hit his head at all. There is no loss of consciousness, patient is on Plavix. Patient also states that over the last day he has felt more weak than usual. On examination there are no focal neurological deficits. Patient has properly oriented speech, extraocular motions are intact, full range of motion, strength, sensation of all extremities is intact, facial movements and sensation are intact. Lab work shows sodium 131, patient is receiving fluids. Urine shows trace protein. CT of the brain and cervical spine shows no acute intracranial abnormality or acute fracture of the cervical spine. There is some mild ventriculomegaly, report suggests correlating for a component of NPH. Patient's clinical presentation does not correlate with NPH, no urinary incontinence, no disoriented speech, patient requires the assistance of a cane, otherwise no "wobbly" gait. Patient appears stable for discharge with outpatient follow-up at this time. Follow-up with PCP in one to 2 days. Report back to ER with any new or worsening symptoms. I discussed return parameters answered all questions. Patient conveyed verbal understanding and agreed to the plan. I discussed this case and plan in detail with my attending Dr. Chand - Lab Data Result diagrams: 05/11/22 11:10 05/11/22 11:10 Lab Results 05/11/22 05/11/22 05/11/22 Range/Units 11:10 11:10 11:13 WBC 4.5 (3.8-10.6) k/uL RBC 4.50 (4.30-5.90) m/uL Hgb 14.2 (13.0-17.5) gm/dL Hct 41.9 (39.0-53.0) % MCV 93.0 (80.0-100.0) fL MCH 31.6 (25.0-35.0) pg MCHC 34.0 (31.0-37.0) g/dL RDW 13.0 (11.5-15.5) % Plt Count 190 (150-450) k/uL MPV 8.0 Neutrophils % 61 % Lymphocytes % 22 % Monocytes % 11 % Eosinophils % 2 % Basophils % 1 % Neutrophils # 2.8 (1.3-7.7) k/uL Lymphocytes # 1.0 (1.0-4.8) k/uL Monocytes # 0.5 (0-1.0) k/uL Eosinophils # 0.1 (0-0.7) k/uL Basophils # 0.0 (0-0.2) k/uL Sodium 131 L (137-145) mmol/L Potassium 4.3 (3.5-5.1) mmol/L Chloride 104 (98-107) mmol/L Carbon Dioxide 22 (22-30) mmol/L Anion Gap 5 mmol/L BUN 19 (9-20) mg/dL Creatinine 1.25 (0.66-1.25) mg/dL Est GFR (CKD-EPI)AfAm 62 (>60 ml/min/1.73 sqM) Est GFR (CKD-EPI)NonAf 53 (>60 ml/min/1.73 sqM) Glucose 104 H (74-99) mg/dL Calcium 8.9 (8.4-10.2) mg/dL Magnesium 1.6 (1.6-2.3) mg/dL Total Bilirubin 0.4 (0.2-1.3) mg/dL AST 23 (17-59) U/L ALT 14 (4-49) U/L Alkaline Phosphatase 56 (38-126) U/L Total Protein 6.8 (6.3-8.2) g/dL Albumin 4.0 (3.5-5.0) g/dL Urine Color Yellow Urine Appearance Clear (Clear) Urine pH 6.0 (5.0-8.0) Ur Specific [place] 1.020 (1.001-1.035) Urine Protein Trace H (Negative) Urine Glucose (UA) Negative (Negative) Urine Ketones Negative (Negative) Urine Blood Negative (Negative) Urine Nitrite Negative (Negative) Urine Bilirubin Negative (Negative) Urine Urobilinogen 2.0 (<2.0) mg/dL Ur Leukocyte Esterase Negative (Negative) Disposition Clinical Impression: Fall, Head injury Disposition: HOME SELF-CARE Condition: Good Instructions (If sedation given, give patient instructions): Fall Prevention for Older Adults (ED), Head Injury (ED) Additional Instructions: Follow-up with PCP in one to 2 days. Report back to ER if any new or worsening symptoms. Is patient prescribed a controlled substance at d/c from ED?: No Referrals: Alvaro Grant MD [Primary Care Provider] - 1-2 days Time of Disposition: 13:03
[2022-05-11 11:22] LABS: Basophils % (A) 1 %; Eosinophils # (A) 0.1 k/uL (0-0.7); Eosinophils % (A) 2 %; HCT 41.9 % (39.0-53.0); HGB 14.2 gm/dL (13.0-17.5); Lymphocytes % (A) 22 %; MCH 31.6 pg (25.0-35.0); Monocytes # (A) 0.5 k/uL (0-1.0); Monocytes % (A) 11 %; Neutrophils # (A) 2.8 k/uL (1.3-7.7); Neutrophils % (A) 61 %; Platelet Count 190 k/uL (150-450); WBC 4.5 k/uL (3.8-10.6)
[2022-05-11 11:32] LABS: Appearance,Urine Clear (Clear); Bilirubin,Urine Negative (Negative); Blood,Urine Negative (Negative); Color,Urine Yellow; Glucose,Urine (UA) Negative (Negative); Ketones,Urine Negative (Negative); Leukocyte Esterase,Urine Negative (Negative); Nitrite,Urine Negative (Negative); Protein,Urine Trace (Negative)
[2022-05-11 11:36] LABS: Calcium 8.9 mg/dL (8.4-10.2); Magnesium 1.6 mg/dL (1.6-2.3); Potassium 4.3 mmol/L (3.5-5.1); Total Bilirubin 0.4 mg/dL (0.2-1.3); Total Protein 6.8 g/dL (6.3-8.2)
--- NOTE | 2022-05-11 12:25 | CT ---
EXAMINATION TYPE: CT brain lauryine wo con DATE OF EXAM: 05/11/2022 COMPARISON: 01/25/2022 and 05/10/2021 HISTORY: 82-year-old male pain after Fall, Head injury, No LOC CT DLP: 1587.9 mGycm Automated exposure control for dose reduction was used. Technique: Examination of the head was done in axial plane without intravenous contrast. Coronal and sagittal reconstructions performed. CT of the cervical spine was obtained in axial plane without intravenous injection of contrast mater ial. Coronal and sagittal reformatted images were obtained from the axial views for evaluation of f ractures, spinal alignment and canal. FINDINGS: Head: There is no evidence of acute intracranial hemorrhage, acute ischemic changes, mass, mass-effect, or extra-axial fluid collection. There is no effacement of cerebral sulci or basal subarachnoid cister ns. Moderate ventriculomegaly likely due to central cerebral atrophy, unchanged from prior. Evident r atio is calculated at 0.34, not significantly changed. Redemonstrated confluent white matter hypodensities in both cerebral hemispheres, right more so than the left. There is no midline shift. Trimble-white matter distinction is preserved. Mild mucosal thickening ethmoid air cells. Mastoid air cells well pneumatized. Cervical spine: No craniocervical junction abnormality, predental space widening, or prevertebral soft tissue swellin g. There is degenerative grade 1 retrolisthesis C5-C6, unchanged from prior. [id number] multilevel degenerative disc disease. Bulging discs contribute to variable mild spinal canal narrowing througho ut. Hypertrophic facet arthropathy throughout and uncovertebral joint arthropathy greatest in the lower c ervical spine. No acute fracture of the cervical spine. Degenerative changes at the bilateral sternoclavicular joints. Moderate left neural foraminal stenosis C4-C5. Mild to moderate on both sides at C5-C6. Moderate to s evere the right and mild on the left at C6-C7. Sagittal and coronal reformatted images confirm above findings. COMBINED IMPRESSION: 1. Mild ventriculomegaly is unchanged. Likely secondary to central cerebral atrophy. Correlate to exc lude a component of NPH. Severe confluent burden of chronic small vessel ischemic disease redemonstra wilder. No acute intracranial abnormality seen. 2. No acute fracture of the cervical spine. Unchanged degenerative grade 1 retrolisthesis C5-C6. Mode rate multilevel spondylotic change.
== END 2022-05-11 13:24 | disposition home or self-care (01) ==
LOC: EC 10:28
DX: S09.90XA Unspecified injury of head, initial encounter (principal); F17.200 Nicotine dependence, unspecified, uncomplicated; E07.9 Disorder of thyroid, unspecified; Z86.73 Personal history of transient ischemic attack (TIA), and cerebral infarction without residual deficits; Z88.5 Allergy status to narcotic agent; Z79.899 Other long term (current) drug therapy; Z79.02 Long term (current) use of antithrombotics/antiplatelets; Z79.890 Hormone replacement therapy; W01.198A Fall on same level from slipping, tripping and stumbling with subsequent striking against other object, initial encounter
CPT/HCPCS: 36415; 70450; 72125; 80053; 81003; 83735; 85025; 99284

== ENCOUNTER 2022-05-16 19:44 | Inpatient (IN) | payer MEDICARE ==
--- NOTE | 2022-05-16 20:02 | ED ---
General Adult HPI - General Stated complaint: Fall, lt hip pain Time Seen by Provider: 05/16/22 19:45 Mode of arrival: EMS - History of Present Illness Initial comments: 82-year-old male presents to the emergency Department with complaints of left hip pain status post fall last night. Patient states he has felt shaky all day today and had to crawl up the basement steps this morning after becoming too weak to bear weight. Patient states he was able to get back to a standing position and has been able to ambulate since. Patient states his called the ambulance this evening as she was worried that he broke his hip. Patient states he has been eating and drinking without difficulty. Took Advil prior to arrival and states his pain is improved. Denies any discomfort at rest. Did not hit his head or lose consciousness when he fell. No fever, chills, dizziness, headache, blurry vision, neck pain, back pain, chest pain, shortness of breath, abdominal pain, nausea, vomiting, diarrhea, dysuria, or loss of bowel or bladder control. - Related Data Home Medications Medication Instructions Recorded Confirmed Levothyroxine Sodium [Synthroid] 200 mcg PO SUMOTUTHSA 12/08/14 05/16/22 Sertraline HCl [Zoloft] 100 mg PO DAILY 12/08/14 05/16/22 Cholecalciferol [Vitamin D3 (25 25 mcg PO DAILY 05/11/22 05/16/22 Mcg = 1000 Iu)] Clopidogrel [Plavix] 75 mg PO DAILY 05/11/22 05/16/22 Fenofibrate Nanocrystallized 145 mg PO DAILY 05/11/22 05/16/22 [Fenofibrate] Levothyroxine Sodium [Synthroid] 300 mcg PO WEFR 05/11/22 05/16/22 Allergies Allergy/AdvReac Type Severity Reaction Status Date / Time codeine Allergy Rash/Hives, Verified 05/11/22 12:08 swelling of face Review of Systems ROS Statement: Those systems with pertinent positive or pertinent negative responses have been documented in the HPI. ROS Other: All systems not noted in ROS Statement are negative. Past Medical History Past Medical History: CVA/TIA, Eye Disorder, Thyroid Disorder Additional Past Medical History / Comment(s): Cataract History of Any Multi-Drug Resistant Organisms: None Reported Past Surgical History: Adenoidectomy, Joint Replacement, Tonsillectomy Additional Past Surgical History / Comment(s): Cataract R eye,R shoulder Past Anesthesia/Blood Transfusion Reactions: No Reported Reaction Past Psychological History: No Psychological Hx Reported Smoking Status: Current some day smoker Past Alcohol Use History: None Reported Past Drug Use History: None Reported - Past Family History Mother Family Medical History: No Reported History General Exam Limitations: no limitations (Well-developed, well-nourished male in no acute distress.) General appearance: alert, in no apparent distress Head exam: Present: atraumatic, normocephalic, normal inspection Eye exam: Present: normal appearance, PERRL, EOMI. Absent: scleral icterus, con junctival injection, periorbital swelling ENT exam: Present: normal exam, normal oropharynx, mucous membranes moist Neck exam: Present: normal inspection, full ROM. Absent: tenderness, meningismus, lymphadenopathy Respiratory exam: Present: normal lung sounds bilaterally. Absent: respiratory distress, wheezes, rales, rhonchi, stridor, chest wall tenderness Cardiovascular Exam: Present: regular rate, normal rhythm, bradycardia, normal heart sounds. Absent: systolic murmur, diastolic murmur, rubs, gallop, clicks GI/Abdominal exam: Present: soft, normal bowel sounds. Absent: distended, tenderness, guarding, rebound, rigid Left Hip exam: Present: normal inspection. Absent: tenderness, swelling, abrasion, deformity, crepitus, external rotation, internal rotation, shortening Upper Leg exam: Present: normal inspection. Absent: tenderness, swelling Knee exam: Present: normal inspection. Absent: tenderness, swelling Lower Leg exam: Present: normal inspection. Absent: tenderness, swelling Ankle exam: Present: normal inspection, full ROM. Absent: tenderness, swelling Foot/Toe exam: Present: normal inspection, full ROM. Absent: tenderness, swelling Neurovascular tendon exam: Present: no vascular compromise. Absent: pulse deficit, abnormal cap refill Back exam: Absent: CVA tenderness (R), CVA tenderness (L), paraspinal tenderness, vertebral tenderness Neurological exam: Present: alert, oriented X3 Expanded Patient oriented to: Present: person, place, time Speech: Present: fluid speech Cranial nerves: EOM's Intact: Normal, Nystagmus: Normal Motor strength exam: RUE: 5, LUE: 5, RLE: 5, LLE: 5 Eye Response: (4) open spontaneously Motor Response: (6) obeys commands Verbal Response: (5) oriented Gerardo Total: 15 Psychiatric exam: Present: normal affect, normal mood Skin exam: Present: warm, dry, intact, normal color. Absent: rash Course Vital Signs 05/16/22 05/16/22 05/16/22 20:09 22:31 23:51 Temperature 98.8 F 98.2 F Pulse Rate 78 53 L Pulse Rate [ 53 L Pulse Oximetery ] Respiratory 16 18 17 Rate Blood Pressure 135/77 134/89 Blood Pressure 138/78 [Right Arm] O2 Sat by Pulse 98 97 97 Oximetry - Reevaluation(s) Reevaluation #1: 05/16/22 21:50 Patient and family updated on results. Discussed hospital admission and patient and family are in agreement. 05/16/22 22:30 I spoke with PHYLLIS Aguirre, who agrees to accept this admission on behalf of [facility]. Medical Decision Making - Medical Decision Making This is an 82-year-old male with a past medical history of CVA who presents to the emergency department via EMS from home for evaluation of left hip pain and generalized weakness. Upon exam, patient is awake and alert and answering questions appropriately. He endorses left hip pain with movement though there is no external rotation or shortening. Distal pulses intact. He reports worsening generalized weakness that is not typical for him. Endorses loss of appetite He does have a tremor that is worse with intentional movement and is scheduled to see a geriatric specialist at [facility] for this. X- rays show no acute findings. Laboratory studies were obtained showing a sodium 127 and positive Covid. Given these results combined with patient's falls he will be admitted to the hospital for further evaluation and treatment. Patient is agreeable with this plan of care. Attending:[place]. - Lab Data Result diagrams: 05/16/22 20:35 05/16/22 20:35 Lab Results 05/16/22 05/16/22 05/16/22 Range/Units 20:35 20:35 20:35 WBC 4.3 (3.8-10.6) k/uL RBC 4.55 (4.30-5.90) m/uL Hgb 14.1 (13.0-17.5) gm/dL Hct 41.3 (39.0-53.0) % MCV 90.6 (80.0-100.0) fL MCH 30.9 (25.0-35.0) pg MCHC 34.1 (31.0-37.0) g/dL RDW 12.4 (11.5-15.5) % Plt Count 212 (150-450) k/uL MPV 7.7 Neutrophils % 43 % Lymphocytes % 44 % Monocytes % 8 % Eosinophils % 4 % Basophils % 1 % Neutrophils # 1.8 (1.3-7.7) k/uL Lymphocytes # 1.9 (1.0-4.8) k/uL Monocytes # 0.3 (0-1.0) k/uL Eosinophils # 0.2 (0-0.7) k/uL Basophils # 0.0 (0-0.2) k/uL PT 10.4 (9.0-12.0) sec INR 1.0 (<1.2) APTT 24.6 (22.0-30.0) sec Sodium 127 L (137-145) mmol/L Potassium 4.5 (3.5-5.1) mmol/L Chloride 99 (98-107) mmol/L Carbon Dioxide 25 (22-30) mmol/L Anion Gap 3 mmol/L BUN 17 (9-20) mg/dL Creatinine 1.07 (0.66-1.25) mg/dL Est GFR (CKD-EPI)AfAm 74 (>60 ml/min/1.73 sqM) Est GFR (CKD-EPI)NonAf 64 (>60 ml/min/1.73 sqM) Glucose 89 (74-99) mg/dL Plasma Lactic Acid Celestino (0.7-2.0) mmol/L Calcium 8.6 (8.4-10.2) mg/dL Magnesium 1.6 (1.6-2.3) mg/dL Total Bilirubin 0.6 (0.2-1.3) mg/dL AST 27 (17-59) U/L ALT 15 (4-49) U/L Alkaline Phosphatase 54 (38-126) U/L Troponin I (0.000-0.034) ng/mL Total Protein 6.4 (6.3-8.2) g/dL Albumin 3.8 (3.5-5.0) g/dL Urine Color Urine Appearance (Clear) Urine pH (5.0-8.0) Ur Specific Parnell (1.001-1.035) Urine Protein (Negative) Urine Glucose (UA) (Negative) Urine Ketones (Negative) Urine Blood (Negative) Urine Nitrite (Negative) Urine Bilirubin (Negative) Urine Urobilinogen (<2.0) mg/dL Ur Leukocyte Esterase (Negative) Coronavirus (PCR) (Not Detectd) 05/16/22 05/16/22 05/16/22 Range/Units 20:35 20:35 21:26 WBC (3.8-10.6) k/uL RBC (4.30-5.90) m/uL Hgb (13.0-17.5) gm/dL Hct (39.0-53.0) % MCV (80.0-100.0) fL MCH (25.0-35.0) pg MCHC (31.0-37.0) g/dL RDW (11.5-15.5) % Plt Count (150-450) k/uL MPV Neutrophils % % Lymphocytes % % Monocytes % % Eosinophils % % Basophils % % Neutrophils # (1.3-7.7) k/uL Lymphocytes # (1.0-4.8) k/uL Monocytes # (0-1.0) k/uL Eosinophils # (0-0.7) k/uL Basophils # (0-0.2) k/uL PT (9.0-12.0) sec INR (<1.2) APTT (22.0-30.0) sec Sodium (137-145) mmol/L Potassium (3.5-5.1) mmol/L Chloride (98-107) mmol/L Carbon Dioxide (22-30) mmol/L Anion Gap mmol/L BUN (9-20) mg/dL Creatinine (0.66-1.25) mg/dL Est GFR (CKD-EPI)AfAm (>60 ml/min/1.73 sqM) Est GFR (CKD-EPI)NonAf (>60 ml/min/1.73 sqM) Glucose (74-99) mg/dL Plasma Lactic Acid Celestino 0.7 (0.7-2.0) mmol/L Calcium (8.4-10.2) mg/dL Magnesium (1.6-2.3) mg/dL Total Bilirubin (0.2-1.3) mg/dL AST (17-59) U/L ALT (4-49) U/L Alkaline Phosphatase (38-126) U/L Troponin I <0.012 (0.000-0.034) ng/mL Total Protein (6.3-8.2) g/dL Albumin (3.5-5.0) g/dL Urine Color Urine Appearance (Clear) Urine pH (5.0-8.0) Ur Specific Parnell (1.001-1.035) Urine Protein (Negative) Urine Glucose (UA) (Negative) Urine Ketones (Negative) Urine Blood (Negative) Urine Nitrite (Negative) Urine Bilirubin (Negative) Urine Urobilinogen (<2.0) mg/dL Ur Leukocyte Esterase (Negative) Coronavirus (PCR) Detected A (Not Detectd) 05/16/22 Range/Units 21:40 WBC (3.8-10.6) k/uL RBC (4.30-5.90) m/uL Hgb (13.0-17.5) gm/dL Hct (39.0-53.0) % MCV (80.0-100.0) fL MCH (25.0-35.0) pg MCHC (31.0-37.0) g/dL RDW (11.5-15.5) % Plt Count (150-450) k/uL MPV Neutrophils % % Lymphocytes % % Monocytes % % Eosinophils % % Basophils % % Neutrophils # (1.3-7.7) k/uL Lymphocytes # (1.0-4.8) k/uL Monocytes # (0-1.0) k/uL Eosinophils # (0-0.7) k/uL Basophils # (0-0.2) k/uL PT (9.0-12.0) sec INR (<1.2) APTT (22.0-30.0) sec Sodium (137-145) mmol/L Potassium (3.5-5.1) mmol/L Chloride (98-107) mmol/L Carbon Dioxide (22-30) mmol/L Anion Gap mmol/L BUN (9-20) mg/dL Creatinine (0.66-1.25) mg/dL Est GFR (CKD-EPI)AfAm (>60 ml/min/1.73 sqM) Est GFR (CKD-EPI)NonAf (>60 ml/min/1.73 sqM) Glucose (74-99) mg/dL Plasma Lactic Acid Celestino (0.7-2.0) mmol/L Calcium (8.4-10.2) mg/dL Magnesium (1.6-2.3) mg/dL Total Bilirubin (0.2-1.3) mg/dL AST (17-59) U/L ALT (4-49) U/L Alkaline Phosphatase (38-126) U/L Troponin I (0.000-0.034) ng/mL Total Protein (6.3-8.2) g/dL Albumin (3.5-5.0) g/dL Urine Color Yellow Urine Appearance Clear (Clear) Urine pH 7.0 (5.0-8.0) Ur Specific Parnell 1.018 (1.001-1.035) Urine Protein Trace H (Negative) Urine Glucose (UA) Negative (Negative) Urine Ketones Negative (Negative) Urine Blood Negative (Negative) Urine Nitrite Negative (Negative) Urine Bilirubin Negative (Negative) Urine Urobilinogen 2.0 (<2.0) mg/dL Ur Leukocyte Esterase Negative (Negative) Coronavirus (PCR) (Not Detectd) - EKG Data EKG shows normal: sinus rhythm Rate: bradycardia EKG Comments: EKG obtained at 2136 shows sinus bradycardia with first-degree AV block, left axis deviation, moderate intraventricular conduction delay, and nonspecific T- wave abnormality. Ventricular rate 57, [place] interval 224, QRS duration 126, QT/QTc 433/426. Interpretation abnormal ECG. - Radiology Data Radiology results: report reviewed, image reviewed X-ray of the left hip was obtained. Report was reviewed in its entirety. Impression per Dr. Wei is there is some osteoarthritis. No fracture. Two-view chest x-ray was obtained. Report was reviewed in its entirety. Impression per Dr. Wei is no active cardiopulmonary disease. Normal heart. No adverse change. Disposition Clinical Impression: Generalized weakness, Multiple falls, Hyponatremia, COVID-19 Disposition: ADMITTED IP TO THIS [facility] Condition: Serious Is patient prescribed a controlled substance at d/c from ED?: No Decision Date: 05/16/22 Decision Time: 22:30
--- NOTE | 2022-05-16 20:22 | XR ---
EXAMINATION TYPE: XR chest 2V DATE OF EXAM: 05/16/2022 COMPARISON: 01/25/2022 HISTORY: Weakness TECHNIQUE: FINDINGS: There is no heart failure nor confluent pneumonic infiltrate. Costophrenic angles are clear . There is right shoulder prosthesis. There are no hilar masses. Bony thorax is intact. IMPRESSION: No active cardiopulmonary disease. Normal heart. No adverse change.
--- NOTE | 2022-05-16 20:24 | XR ---
EXAMINATION TYPE: XR Hip Complete LT DATE OF EXAM: 05/16/2022 COMPARISON: NONE HISTORY: Left hip pain TECHNIQUE: 2 views FINDINGS: There is some hip joint space narrowing. I see no fracture nor dislocation. Acetabulum is i ntact. IMPRESSION: There is some osteoarthritis. No fracture.
[2022-05-16 20:44] LABS: Basophils % (A) 1 %; Eosinophils # (A) 0.2 k/uL (0-0.7); Eosinophils % (A) 4 %; HCT 41.3 % (39.0-53.0); HGB 14.1 gm/dL (13.0-17.5); Lymphocytes # (A) 1.9 k/uL (1.0-4.8); Lymphocytes % (A) 44 %; MCH 30.9 pg (25.0-35.0); MCHC 34.1 g/dL (31.0-37.0); MCV 90.6 fL (80.0-100.0); Mean Platelet Volume 7.7; Monocytes # (A) 0.3 k/uL (0-1.0); Monocytes % (A) 8 %; Neutrophils # (A) 1.8 k/uL (1.3-7.7); Neutrophils % (A) 43 %; Platelet Count 212 k/uL (150-450); RBC 4.55 m/uL (4.30-5.90); RDW 12.4 % (11.5-15.5); WBC 4.3 k/uL (3.8-10.6)
[2022-05-16 20:51] LABS: Partial Thromboplastin Time 24.6 sec (22.0-30.0); Prothrombin Time 10.4 sec (9.0-12.0)
[2022-05-16 20:55] LABS: Albumin 3.8 g/dL (3.5-5.0); Calcium 8.6 mg/dL (8.4-10.2); Magnesium 1.6 mg/dL (1.6-2.3); Potassium 4.5 mmol/L (3.5-5.1); Total Bilirubin 0.6 mg/dL (0.2-1.3); Total Protein 6.4 g/dL (6.3-8.2)
[2022-05-16] MEDS ORDERED: SODIUM CHLORIDE 0.9% 1,000 ML IV STA (21:07)
[2022-05-16 22:01] LABS: Appearance,Urine Clear (Clear); Bilirubin,Urine Negative (Negative); Blood,Urine Negative (Negative); Color,Urine Yellow; Glucose,Urine (UA) Negative (Negative); Ketones,Urine Negative (Negative); Leukocyte Esterase,Urine Negative (Negative); Nitrite,Urine Negative (Negative); Protein,Urine Trace (Negative); Specific Gravity,Urine 1.018 (1.001-1.035)
[2022-05-16] MEDS ORDERED: NALOXONE 0.4 MG/ML 1 ML VIAL IV PRN (22:39)
[2022-05-16] MEDS ORDERED: ACETAMINOPHEN TAB 325 MG TAB PO PRN (22:39)
[2022-05-16] MEDS ORDERED: ONDANSETRON 4 MG/2 ML VIAL IVP PRN (22:39)
[2022-05-16] MEDS: SODIUM CHLORIDE 0.9% 1,000 ML IV SCH (22:51)
[2022-05-17 07:56] LABS: Basophils % (A) 1 %; Eosinophils # (A) 0.2 k/uL (0-0.7); Eosinophils % (A) 5 %; HGB 13.3 gm/dL (13.0-17.5); Lymphocytes % (A) 46 %; MCHC 32.3 g/dL (31.0-37.0); MCV 92.7 fL (80.0-100.0); Mean Platelet Volume 7.7; Monocytes # (A) 0.4 k/uL (0-1.0); Monocytes % (A) 8 %; Neutrophils # (A) 1.6 k/uL (1.3-7.7); Neutrophils % (A) 38 %; Platelet Count 208 k/uL (150-450); RBC 4.42 m/uL (4.30-5.90); RDW 12.4 % (11.5-15.5); WBC 4.4 k/uL (3.8-10.6)
[2022-05-17 08:25] LABS: Calcium 8.4 mg/dL (8.4-10.2); Potassium 4.7 mmol/L (3.5-5.1)
[2022-05-17] MEDS: CLOPIDOGREL 75 MG TAB PO SCH (09:35)
[2022-05-17] MEDS: SERTRALINE 100 MG TAB PO SCH (09:35)
[2022-05-17] MEDS: FAMOTIDINE 20 MG TAB PO SCH ×2 (09:35→21:28)
[2022-05-17] MEDS: NON FORMULARY DRUG (Fenofibrate Nanocrystallized [Fenofibrate] 145 MG Tablet) PO SCH (10:15)
[2022-05-17] MEDS: SODIUM CHLORIDE 0.9% 1,000 ML IV SCH (11:52)
[2022-05-17 15:24] VITALS: RESP 16
--- NOTE | 2022-05-17 16:01 | P.HPIM ---
History of Present Illness H&P Date: 05/17/22 This is an 82-year-old male who recently presented to the emergency department after a fall while in his basement and tripping over some boxes that were in the way and had some left hip pain and reports that he was feeling shaky all day and week and came here for further evaluation. They were concerned for possible hip fracture. Patient follows with Dr. Dr. Grant in the outpatient setting with a past medical history of CVA/TIA, thyroid disorder. Patient was maintained on Plavix in the outpatient setting and follows with cardiology outpatient and approximately one year ago underwent stress test in 2020 that showed a tiny area of stress-induced reversible ischemia involving an inferior lateral wall not being excluded and may also be artifactual with a ventricular ejection fraction of 59%. Most recent echo done in February 2021 shows severe concentric left ventricular hypertrophy with overall LV systolic function being normal with EF of 55-60% with the right ventricle being severely enlarged and some moderate aortic valve sclerosis with mild tricuspid regurgitation present. Will obtain echo as patient's heart rate is also noted to be bradycardia in the 50s and blood pressure is normal. Patient does follow with cardiology although has in a few years but there is documented testing done in 2020. She was also hyponatremic on admission of 127. Urinalysis was negative and patient was incidentally found to be COVID-19 positive and is asymptomatic. Patient reports he has had vaccines and his booster. Hip x-ray in the ED shows some osteoarthritis with no fracture and there is some hip joint space narrowing. Chest x-ray showed no active cardiopulmonary disease with normal heart and no adverse changes. EKG showed sinus bradycardia with first-degree AV block. Review Of Systems: Constitutional: No fever, no chills, no night sweats. No weight change. No weakness, fatigue or lethargy. No daytime sleepiness. EENT: No headache. No blurred vision or double vision, no loss of vision. No loss of Hearing, no ringing in the ears, no dizziness. No nasal drainage or congestion. No epistaxis. No sore throat. Lungs: No shortness of breath, cough, no sputum production. No wheezing. Cardiovascular: No chest pain, no lower extremity edema. No palpitations. No paroxysmal nocturnal dyspnea. No orthopnea. No lightheadedness or dizziness. No syncopal episodes. Abdominal: No abdominal pain. No nausea, vomiting. No diarrhea. No constipation. No bloody or tarry stools.. No loss of appetite. Genitourinary: No dysuria, increased frequency, urgency. No urinary retention. Musculoskeletal: No myalgias. No muscle weakness, no gait dysfunction, reports fall at home mechanical after tripping on some boxes in the basement report some left hip pain. No back pain. No neck pain. Integumentary: No wounds, no lesions. No rash or pruritus. No unusual bruising. No change in hair or nails. Neurologic: No aphasia. No facial droop. No change in mentation. No head injury. No headache. No paralysis. No paresthesia. Psychiatric: No depression. No anxiety. No mood swings. Endocrine: No abnormal blood sugars. No weight change. No excessive sweating or thirst. No cold intolerance. PHYSICAL EXAMINATION: GENERAL: The patient is alert and oriented x4, Well developed, well nourished. HEENT: Pupils are round and equally reacting to light. EOMI. no scleral icterus. No conjunctival pallor. Normocephalic, atraumatic. No pharyngeal erythema. No thyromegaly. CARDIOVASCULAR: S1 and S2 muffled PULMONARY: Breath sounds are clear to auscultation with no wheezing or rhonchi noted. ABDOMEN: soft. Nontender on exam. non-distended, normoactive bowel sounds. No palpable organomegaly. MUSCULOSKELETAL: No joint swelling or deformity. EXTREMITIES: No cyanosis, clubbing, or pedal edema. No bruising noted of the left hip NEUROLOGICAL: Gross neurological examination did not reveal any focal deficits. SKIN: No rashes. Assessment: Fall with left hip pain Bradycardia noted on EKG Positive COVID-19 infection with no symptoms Hyponatremia, improved with IV fluids Past medical history of CVA/TIA maintained on Plavix Hypothyroidism Right eye cataract Continued ongoing nicotine use, occasionally not daily GI prophylaxis DVT prophylaxis Full code Plan: Patient was given IV fluids and sodium improved most likely hypovolemic hyponatremia. Patient also came to the emergency deferment with left hip pain concern for hip fracture status post fall which was mechanical as patient reports he was down in the basement moving things around and tripped on a box and fell forward onto his hip. Hip and chest x-rays were negative and EKG showing sinus bradycardia with first-degree AV block and have ordered an echo which is currently pending at this time. Patient also was incidentally found to be Covid positive although not experiencing any symptoms and was not aware. Patient denies any chest pain shortness of breath and is asymptomatic of it. Patient reports to being vaccines 2 and also receiving his boosters and follows with Dr. landers in the outpatient setting. According to previous records Patient has had echocardiogram Along with stress testing in 2020 and reports he does not routinely follow with cardiology in the outpatient setting. Patient does have a past medical history of CVA/TIA and is maintained on Plavix. Will repeat echo given the EKG showed sinus bradycardia with first-degree AV block and await report. Patient reports to feeling well and is anxious to go home. Recommend outpatient follow-up with cardiology with possible discharge later today. If no discharge today, will consider possible consult to cardiology for evaluation pending the echo results and probable discharge in 24 hours. The impression and plan of care has been dictated by Antonella Logan, nurse practitioner as directed. Dr. roland MD I have performed a history and examination and MDM of this patient, discussed the same with the dictator, and agree with the dictator's assessment and plan as written ,documented as a scribe. Based on total visit time, I have performed more than 50% of the visit. Any additional findings or plans will be noted. Past Medical History Past Medical History: CVA/TIA, Eye Disorder, Thyroid Disorder Additional Past Medical History / Comment(s): Cataract History of Any Multi-Drug Resistant Organisms: None Reported Past Surgical History: Adenoidectomy, Joint Replacement, Tonsillectomy Additional Past Surgical History / Comment(s): Cataract R eye,R shoulder Past Anesthesia/Blood Transfusion Reactions: No Reported Reaction Past Psychological History: No Psychological Hx Reported Smoking Status: Current some day smoker Past Alcohol Use History: None Reported Past Drug Use History: None Reported - Past Family History Mother Family Medical History: No Reported History Medications and Allergies Home Medications Medication Instructions Recorded Confirmed Type Levothyroxine Sodium [Synthroid] 200 mcg PO SUMOTUTHSA 12/08/14 05/16/22 History Sertraline HCl [Zoloft] 100 mg PO DAILY 12/08/14 05/16/22 History Cholecalciferol [Vitamin D3 (25 25 mcg PO DAILY 05/11/22 05/16/22 History Mcg = 1000 Iu)] Clopidogrel [Plavix] 75 mg PO DAILY 05/11/22 05/16/22 History Fenofibrate Nanocrystallized 145 mg PO DAILY 05/11/22 05/16/22 History [Fenofibrate] Levothyroxine Sodium [Synthroid] 300 mcg PO WEFR 05/11/22 05/16/22 History Allergies Allergy/AdvReac Type Severity Reaction Status Date / Time codeine Allergy Rash/Hives, Verified 05/11/22 12:08 swelling of face Physical Exam Vitals: Vital Signs Temp Pulse Pulse Resp BP BP Pulse Ox 05/17/22 05:14 97.9 F 50 L 18 119/74 97 05/17/22 01:50 97.7 F 54 L 17 116/68 95 05/16/22 23:51 98.2 F 53 L 17 138/78 97 05/16/22 22:31 53 L 18 134/89 97 05/16/22 20:09 98.8 F 78 16 135/77 98 Intake and Output 05/17/22 05/17/22 05/17/22 06:59 14:59 22:59 Output Total 320 Balance -320 Output: Urine 320 Other: Voiding Method Urinal # Voids 2 Weight 106.594 kg Results CBC & Chem 7: 05/17/22 07:42 05/17/22 07:42 Labs: Abnormal Lab Results - Last 24 Hours (Table) 05/16/22 05/16/22 05/16/22 Range/Units 20:35 21:26 21:40 Sodium 127 L (137-145) mmol/L Urine Protein Trace H (Negative) Coronavirus (PCR) Detected A (Not Detectd) 05/17/22 Range/Units 07:42 Sodium 131 L (137-145) mmol/L Urine Protein (Negative) Coronavirus (PCR) (Not Detectd) Thrombosis Risk Factor Assmnt - Choose All That Apply Any of the Below Risk Factors Present?: No Other Risk Factors: Yes Each Risk Factor Represents 3 Points: Age 75 years or older Other congenital or acquired thrombophilia - If yes, enter type in comment: No Thrombosis Risk Factor Assessment Total Risk Factor Score: 3 Thrombosis Risk Factor Assessment Level: Moderate Risk
[2022-05-18] MEDS: FAMOTIDINE 20 MG TAB PO SCH (08:43)
[2022-05-18] MEDS: CLOPIDOGREL 75 MG TAB PO SCH (08:43)
[2022-05-18] MEDS: SERTRALINE 100 MG TAB PO SCH (08:43)
[2022-05-18] MEDS: NON FORMULARY DRUG (Fenofibrate Nanocrystallized [Fenofibrate] 145 MG Tablet) PO SCH (08:46)
[2022-05-18 08:47] LABS: African American GFR (CKD) 59 (>60 ml/min/1.73 sqM); Anion Gap 4 mmol/L; Blood Urea Nitrogen 17 mg/dL (9-20); Carbon Dioxide 24 mmol/L (22-30); Chloride 103 mmol/L (98-107); Glucose 90 mg/dL (74-99); Non-African American GFR(CKD) 51 (>60 ml/min/1.73 sqM); Potassium 4.5 mmol/L (3.5-5.1); Sodium 131 mmol/L (137-145)
--- NOTE | 2022-05-18 10:13 | CA ---
Transthoracic Echo Report Name: Helder Murphy Age: 82 Gender: M : 1940 Exam Date: 05/17/2022 13:05 Exam Location: [facility] Ht (in): 72 Wt (lb): 235 Ordering Physician: Antonella Logan Attending/Referring Phys: Patternmaker Sample Renee Myers RDCS Procedure CPT: Indications: Bradycardia Cardiac Hx: Technical Quality: Fair Contrast 1: Total Dose (mL): Contrast 2: Total Dose (mL): MEASUREMENTS (Male / Female) Normal Values 2D ECHO LV Diastolic Diameter PLAX 4.2 cm 4.2 - 5.9 / 3.9 - 5.3 cm LV Systolic Diameter PLAX 2.7 cm IVS Diastolic Thickness 1.4 cm 0.6 - 1.0 / 0.6 - 0.9 cm LVPW Diastolic Thickness 1.4 cm 0.6 - 1.0 / 0.6 - 0.9 cm LV Relative Wall Thickness 0.7 RV Internal Dim ED PLAX 3.8 cm LVOT Diameter 2.8 cm LA Systolic Diameter LX 3.7 cm 3.0 - 4.0 / 2.7 - 3.8 cm LA Volume 52.3 cm??? 18 - 58 / 22 - 52 cm??? M-MODE Aortic Root Diameter MM 4.0 cm MV E Point Septal Separation 3.0 cm AV Cusp Separation MM 2.0 cm DOPPLER AV Peak Velocity 123.2 cm/s AV Peak Gradient 6.1 mmHg LVOT Peak Velocity 126.8 cm/s LVOT Peak Gradient 6.4 mmHg AV Area Cont Eq pk 6.4 cm??? MV Area PHT 1.7 cm??? Mitral E Point Velocity 56.6 cm/s Mitral A Point Velocity 103.1 cm/s Mitral E to A Ratio 0.5 MV Deceleration Time 435.9 ms TR Peak Velocity 229.3 cm/s TR Peak Gradient 21.0 mmHg Right Ventricular Systolic Press 26.0 mmHg FINDINGS Left Ventricle Left ventricular ejection fraction is estimated at 55-60 % left ventricular cavity size normal. Moderate concentric left ventricular hypertrophy. Right Ventricle Moderate right ventricular dilatation. Right ventricular systolic pressure within normal limits. Right Atrium Normal right atrial size. Left Atrium Normal left atrial size. No evidence for an atrial septal defect. Mitral Valve Mitral annular calcification. Aortic Valve Focal thickening of the aortic valve cusps. Tricuspid Valve Mild tricuspid regurgitation. Pulmonic Valve Pulmonic valve not well visualized. Pericardium Normal pericardium. No pericardial effusion. Aorta Moderate aortic dilatation at the level of the sinuses of valsalva 40 mm CONCLUSIONS LVH with ejection fraction greater than 5560% RV enlargement with mild hypokinesis Thickened aortic valve leaflets without any significant stenosis Very limited visualization of the aortic root and ascending aorta Previewed by: Dr. Maksim Childress MD (Electronically Signed) Final Date: 18 May 2022 10:13
[2022-05-18 10:17] VITALS: BP 127/77; PULSE 54; TEMP 98.4
--- NOTE | 2022-05-18 10:35 | P.CRDCN ---
History of Present Illness Consult date: 05/18/22 History of present illness: CHIEF COMPLAINT: Bradycardia HISTORY OF PRESENT ILLNESS: This is a 82-year-old male with a past medical history significant for dyslipidemia and nicotine dependence. Patient follows in the office with Dr. Valle. We have been asked to see the patient in consultation for bradycardia. Patient is admitted to the hospital secondary to fall with left hip pain. Patient was found to be positive for Covid. Patients EKG reveals sinus mechanism with a heart rate in the 50s. He is not on telemetry. Vital signs show documented heart rates in the 50-60s. His blood pressure is stable. * EKG reveals sinus mechanism with first degree AV block. Left axis deviation. * Chest xray negative for acute process * Laboratory data: WBC 4.4. Hemoglobin 13.3. Platelet count 208. Sodium 131. Potassium 4.5. BUN 17. Creatinine 1.3. * Current home cardiac medications include Plavix 75 mg daily and fenofibrate 145 mg daily * Echocardiogram obtained reveals ejection fraction 55-60% * Patient underwent Lexiscan stress test in May 2021 revealing reduced uptake involving the inferior wall on both stress and rest images may be artifactual. Correlate clinically to exclude previous infarction. Tiny area of stress- induced reversible ischemia involving the inferior lateral wall not excluded. REVIEW OF SYSTEMS: Thorough review of systems not completed secondary to limited evaluation/ex amination due to Covid19 PHYSICAL EXAM: Thorough physical exam not completed secondary to limited evaluation/examination due to Covid19 ASSESSMENT: S/P mechanical fall Acute Covid 19 Hyponatremia Mild bradycardia, HR 50s, asymptomatic Dyslipidemia Nicotine dependence PLAN: Patient is currently stable from a cardiac standpoint. No acute cardiac issues. We will sign off. Please reconsult if needed. Nurse practitioner note has been reviewed by physician. Signing provider agrees with the documented findings, assessment, and plan of care. Past Medical History Past Medical History: CVA/TIA, Eye Disorder, Thyroid Disorder Additional Past Medical History / Comment(s): Cataract History of Any Multi-Drug Resistant Organisms: None Reported Past Surgical History: Adenoidectomy, Joint Replacement, Tonsillectomy Additional Past Surgical History / Comment(s): Cataract R eye,R shoulder Past Anesthesia/Blood Transfusion Reactions: No Reported Reaction Past Psychological History: No Psychological Hx Reported Smoking Status: Current some day smoker Past Alcohol Use History: None Reported Past Drug Use History: None Reported - Past Family History Mother Family Medical History: No Reported History Medications and Allergies Home Medications Medication Instructions Recorded Confirmed Type Levothyroxine Sodium [Synthroid] 200 mcg PO SUMOTUTHSA 12/08/14 05/16/22 History Sertraline HCl [Zoloft] 100 mg PO DAILY 12/08/14 05/16/22 History Cholecalciferol [Vitamin D3 (25 25 mcg PO DAILY 05/11/22 05/16/22 History Mcg = 1000 Iu)] Clopidogrel [Plavix] 75 mg PO DAILY 05/11/22 05/16/22 History Fenofibrate Nanocrystallized 145 mg PO DAILY 05/11/22 05/16/22 History [Fenofibrate] Levothyroxine Sodium [Synthroid] 300 mcg PO WEFR 05/11/22 05/16/22 History Allergies Allergy/AdvReac Type Severity Reaction Status Date / Time codeine Allergy Rash/Hives, Verified 05/11/22 12:08 swelling of face Physical Exam Vitals: Vital Signs Temp Pulse Resp BP Pulse Ox 05/18/22 08:00 98.4 F 54 L 16 127/77 96 05/17/22 19:00 98.6 F 61 16 125/77 96 05/17/22 18:00 98.7 F 61 16 119/75 93 L 05/17/22 14:00 98.6 F 54 L 16 133/82 95 Intake and Output 05/17/22 05/18/22 05/18/22 22:59 06:59 14:59 Other: Voiding Method Toilet Urinal # Voids 1 1 Results 05/17/22 07:42 05/18/22 07:58 Comprehensive Metabolic Panel 05/18/22 Range/Units 07:58 Sodium 131 L (137-145) mmol/L Potassium 4.5 (3.5-5.1) mmol/L Chloride 103 (98-107) mmol/L Carbon Dioxide 24 (22-30) mmol/L BUN 17 (9-20) mg/dL Creatinine 1.30 H (0.66-1.25) mg/dL Glucose 90 (74-99) mg/dL Calcium 9.0 (8.4-10.2) mg/dL Current Medications Generic Name Dose Route Start Last Admin Trade Name Freq PRN Reason Stop Dose Admin Acetaminophen 650 mg 05/16/22 22:39 Acetaminophen Tab 325 Mg Tab PO Q6HR PRN Mild Pain or Fever > 100.5 Clopidogrel Bisulfate 75 mg 05/17/22 09:00 05/18/22 08:43 Clopidogrel 75 Mg Tab PO 75 mg DAILY REGINALDO Administration Famotidine 20 mg 05/17/22 09:00 05/18/22 08:43 Famotidine 20 Mg Tab PO 20 mg BID REGINALDO Administration Naloxone HCl 0.2 mg 05/16/22 22:39 Naloxone 0.4 Mg/Ml 1 Ml Vial IV Q2M PRN Opioid Reversal Non-Formulary Medication 145 mg 05/17/22 09:00 05/18/22 08:46 Fenofibrate Nanocrystallized [Fenofibrate] PO Not Given DAILY REGINALDO Ondansetron HCl 4 mg 05/16/22 22:39 Ondansetron 4 Mg/2 Ml Vial IVP Q8HR PRN Nausea And Vomiting Sertraline HCl 100 mg 05/17/22 09:00 05/18/22 08:43 Sertraline 100 Mg Tab PO 100 mg DAILY REGINALDO Administration Intake and Output 05/17/22 05/18/22 05/18/22 22:59 06:59 14:59 Other: Voiding Method Toilet Urinal # Voids 1 1 05/17/22 07:42 05/18/22 07:58
== END 2022-05-18 14:19 | disposition home or self-care (01) | DRG 308 ==
LOC: EC 19:44 → 4SSUR 22:39
PROVIDERS: ADMIT Hospitalist; ATTEND Hospitalist
DX: I44.0 Atrioventricular block, first degree (principal); U07.1 COVID-19; E87.1 Hypo-osmolality and hyponatremia; M16.12 Unilateral primary osteoarthritis, left hip; I08.0 Rheumatic disorders of both mitral and aortic valves; E03.9 Hypothyroidism, unspecified; F17.210 Nicotine dependence, cigarettes, uncomplicated; R00.1 Bradycardia, unspecified; R25.1 Tremor, unspecified; R29.6 Repeated falls; E86.1 Hypovolemia; E78.5 Hyperlipidemia, unspecified; W18.09XA Striking against other object with subsequent fall, initial encounter; Z96.60 Presence of unspecified orthopedic joint implant; Z79.899 Other long term (current) drug therapy; Z79.890 Hormone replacement therapy; Z88.5 Allergy status to narcotic agent; Z86.73 Personal history of transient ischemic attack (TIA), and cerebral infarction without residual deficits; Z98.41 Cataract extraction status, right eye; Z98.890 Other specified postprocedural states; Z91.81 History of falling; Z79.02 Long term (current) use of antithrombotics/antiplatelets; Y92.098 Other place in other non-institutional residence as the place of occurrence of the external cause
CPT/HCPCS: 36415; 71046; 73502; 80048; 80053; 81003; 83605; 83735; 84484; 85025; 85610; 85730; 87635; 93005; 93306; 96360; 99285

== ENCOUNTER 2023-07-20 20:04 | Emergency (ER) | payer MEDICARE ==
[2023-07-20] MEDS ORDERED: SODIUM CHLORIDE 0.9% 500 ML 500 ML IV ONE (20:27)
[2023-07-20] MEDS ORDERED: DIPH,PERTUS(ACELL)TETVAC-LF 0.5 ML VIAL IM ONE (20:29)
[2023-07-20 21:22] LABS: African American GFR (CKD) 87 (>60 ml/min/1.73 sqM); Anion Gap 6 mmol/L; Blood Urea Nitrogen 16 mg/dL (9-20); Calcium 8.2 mg/dL (8.4-10.2); Carbon Dioxide 21 mmol/L (22-30); Chloride 104 mmol/L (98-107); Glucose 131 mg/dL (74-99); Non-African American GFR(CKD) 75 (>60 ml/min/1.73 sqM); Sodium 131 mmol/L (137-145)
[2023-07-20 21:24] LABS: Basophils % (A) 0 %; Eosinophils # (A) 0.3 k/uL (0-0.7); Eosinophils % (A) 4 %; HCT 38.9 % (39.0-53.0); HGB 13.3 gm/dL (13.0-17.5); Lymphocytes # (A) 1.2 k/uL (1.0-4.8); Lymphocytes % (A) 18 %; MCH 31.7 pg (25.0-35.0); MCHC 34.3 g/dL (31.0-37.0); MCV 92.6 fL (80.0-100.0); Mean Platelet Volume 8.1; Monocytes # (A) 0.4 k/uL (0-1.0); Monocytes % (A) 6 %; Neutrophils # (A) 4.9 k/uL (1.3-7.7); Neutrophils % (A) 71 %; Platelet Count 201 k/uL (150-450); RDW 12.7 % (11.5-15.5); WBC 6.9 k/uL (3.8-10.6)
--- NOTE | 2023-07-20 21:45 | CT ---
EXAMINATION TYPE: CT brain cspine wo con CT DLP: 1605.3 mGycm, Automated exposure control for dose reduction was used. DATE OF EXAM: 07/20/2023 9:37 PM COMPARISON: 05/11/2022 CLINICAL INDICATION:Male, 83 years old with history of fall; TECHNIQUE: Brain: Multiple axial CT images of the brain were obtained without IV contrast. Cspine: Axial CT images from the skull base to the inferior aspect of T2 we obtained without intraven ous contrast. Coronal and sagittal reformatted images were also reviewed. FINDINGS: Brain: Extra-axial spaces: No abnormal extra-axial fluid collections. Ventricular system: Dilatation in proportion to cerebral atrophy. Cerebral parenchyma: Cerebral atrophy. No acute intraparenchymal hemorrhage or mass effect. The carty -white junction is well differentiated. Scattered hypoattenuating areas are seen within the white mat ter. Cerebellum: Unremarkable. Mass effect: No evidence of midline shift. Intracranial vasculature: Atherosclerotic calcifications of the intracranial vessels. Soft tissues: Normal. Calvarium/osseous structures: No depressed skull fracture. Paranasal sinuses and mastoid air cells: Clear. Visualized orbits: Bilateral aphakia Cervical spine: Fracture: None. Osseous structures: Multilevel degenerative disc disease changes with endplate spurring and disc oste ophyte complex's. Vertebral alignment: Within normal limits. Spinal canal/Neural Foramina: Disc osteophyte complexes at C4-C7 with at least mild spinal canal sten osis. Facet joint uncovertebral joint arthropathy scattered throughout the cervical spine with varyin g degrees of neural foraminal stenosis. Neck soft tissues: Prevertebral soft tissues are within normal limits. Other: The airway is patent. The lung apices are clear. IMPRESSION: 1. No acute intracranial process. 2. Nonspecific white matter changes, likely secondary to chronic small vessel ischemic disease. 3. No evidence of cervical spine fracture. 4. Mild multilevel degenerative disc disease.
--- NOTE | 2023-07-20 22:28 | ED ---
General Adult HPI - General Chief complaint: Fall Stated complaint: Fall Time Seen by Provider: 07/20/23 20:15 Source: patient, EMS, RN notes reviewed, old records reviewed Mode of arrival: EMS Limitations: no limitations - History of Present Illness Initial comments: Patient is an 83-year-old male with past medical history remarkable for Parkinson's, thyroid disease who presents emergency Department complaining of a fall. Since the patient had a mechanical fall with possible near-syncopal episode associated with it at home. States he was walking aggressive describing a cigar when he lost his balance and fell forward. He has had. Had an episode of sweating with some vomiting immediately afterwards however states is passing feels fine now. Was brought by EMS for further evaluation. Denies any pain. Denies headache. Denies weakness or numbness. Denies blurry vision. Denies chest pain or shortness of breath. Denies abdominal pain, nausea, vomiting. Presents for further evaluation at this time. Patient is on Plavix. Fall from standing. - Related Data Home Medications Medication Instructions Recorded Confirmed Levothyroxine Sodium [Synthroid] 200 mcg PO DAILY 12/08/14 07/20/23 Sertraline HCl [Zoloft] 100 mg PO DAILY 12/08/14 07/20/23 Cholecalciferol [Vitamin D3 (25 25 mcg PO DAILY 05/11/22 07/20/23 Mcg = 1000 Iu)] Clopidogrel [Plavix] 75 mg PO DAILY 05/11/22 07/20/23 Fenofibrate Nanocrystallized 145 mg PO DAILY 05/11/22 07/20/23 [Fenofibrate] Ascorbic Acid [Vitamin C] 500 mg PO DAILY 07/20/23 07/20/23 Carbidopa/Levodopa 1.5 tab PO TID 07/20/23 07/20/23 [Carbidopa-Levodopa 25-100 Tab] Multivitamins, Thera [Multivitamin 1 tab PO DAILY 07/20/23 07/20/23 (formulary)] Allergies Allergy/AdvReac Type Severity Reaction Status Date / Time codeine Allergy Rash/Hives, Verified 07/20/23 21:11 swelling of face Review of Systems ROS Statement: Those systems with pertinent positive or pertinent negative responses have been documented in the HPI. Review of Systems: CONST: Denies fever EYES: Denies blurry vision ENT: Denies nasal congestion C/V: Denies Chest pain RESP: Denies shortness of breath GI: Denies abdominal pain : Denies dysuria SKIN: Denies rash. MSK: Denies joint pain. NEURO: Denies headache ROS Other: All systems not noted in ROS Statement are negative. Past Medical History Past Medical History: CVA/TIA, Eye Disorder, Thyroid Disorder Additional Past Medical History / Comment(s): Cataract, possible parkinsons. Tremors History of Any Multi-Drug Resistant Organisms: None Reported Past Surgical History: Adenoidectomy, Joint Replacement, Tonsillectomy Additional Past Surgical History / Comment(s): Cataract R eye,R shoulder Past Anesthesia/Blood Transfusion Reactions: No Reported Reaction Past Psychological History: No Psychological Hx Reported Smoking Status: Current some day smoker Past Alcohol Use History: None Reported Past Drug Use History: None Reported - Past Family History Mother Family Medical History: No Reported History General Exam - General Exam Comments Initial Comments: General: Appears in no acute distress. HEAD: Normal with no signs of head trauma. Negative weeks sign. Negative raccoon eyes. EYES: PERRLA, EOMI, conjunctiva normal, no discharge. Pupils 3 mm and bilater ally. ENT: Hearing grossly intact, normal oropharynx. RESPIRATORY: Clear breath sounds bilaterally. No wheezes, rales, or rhonchi. C/V: Regular rate and rhythm. S1 and S2 auscultated, no edema, peripheral pulses 2+ and intact throughout ABD: Abd is soft, nontender, nondistended EXT: Normal range of motion, no obvious deformity. Pelvis stable. No midline cervical, thoracic, lumbar spine tenderness palpation and no step-offs or deformities of the spine. SKIN: Abrasions located over the right scalp. No obvious bleeding. NEURO: Alert and oriented x 4. Cranial nerves II-XII intact. No focal sensory or strength deficits. NIH of 0. GCS of 15. Limitations: no limitations Course Vital Signs 07/20/23 07/20/23 07/20/23 20:09 22:23 22:47 Temperature 98.7 F 97.6 F Pulse Rate 51 L 58 L 56 L Respiratory 14 16 16 Rate Blood Pressure 116/80 113/74 125/73 O2 Sat by Pulse 98 97 97 Oximetry Medical Decision Making - Medical Decision Making Was pt. sent in by a medical professional or institution (, PA, SOCIAL WORK LECTURER, urgent care, hospital, or prison...) When possible be specific @ -No Did you speak to anyone other than the patient for history (EMS, parent, family, police, friend...)? What history was obtained from this source @ -No Did you review nursing and triage notes (agree or disagree)? Why? @ -I reviewed and agree with nursing and triage notes Were old charts reviewed (outside hosp., previous admission, EMS record, old EKG, old radiological studies, urgent care reports/EKG's, prison records)? Report findings @ -Old charts reviewed. Differential Diagnosis (chest pain, altered mental status, abdominal pain women, abdominal pain men, vaginal bleeding, weakness, fever, dyspnea, syncope, headache, dizziness, GI bleed, back pain, seizure, CVA, palpatations, mental health, musculoskeletal)? @ -Differential Musculoskeletal Muscular strain, contusion, ligament sprain, fracture, arthritis, septic arthritis, bursitis, cellulitis, muscle spasm, nerve compression, DVT, arterial occlusion, herpes zoster, electrolyte abnormality, tumor.... This is not meant to be in all inclusive list. Also includes possible intracranial injury, dehydration, arrhythmia. This list is not all inclusive. EKG interpreted by me (3pts min.). @ -As above X-rays interpreted by me (1pt min.). @ -None done CT interpreted by me (1pt min.). @ -CT brain, cervical spine negative for any obvious acute traumatic injury. U/S interpreted by me (1pt. min.). @ -None done What testing was considered but not performed or refused? (CT, X-rays, U/S, labs)? Why? @ -None What meds were considered but not given or refused? Why? @ -None Did you discuss the management of the patient with other professionals (yulia doshi i.eJerica Arshad, RANDI, SOCIAL WORK LECTURER, lab, RT, psych nurse, social worker school, admiralty lawyer, teacher, aoc [employer] operations staff officer, rn case manager)? Give summary @ -No Was smoking cessation discussed for >3mins.? @ -No Was critical care preformed (if so, how long)? @ -No Were there social determinants of health that impacted care today? How? (Homelessness, low income, unemployed, alcoholism, drug addiction, transportation, low edu. Level, literacy, decrease access to med. care, [facility], rehab)? @ -No Was there de-escalation of care discussed even if they declined (Discuss DNR or withdrawal of care, Hospice)? DNR status @ -No What co-morbidities impacted this encounter? (DM, HTN, Smoking, COPD, CAD, Cancer, CVA, ARF, Chemo, Hep., AIDS, mental health diagnosis, sleep apnea, morbid obesity)? @ -None Was patient admitted / discharged? Hospital course, mention meds given and route, prescriptions, significant lab abnormalities, going to OR and other pertinent info. @ -Based on the patient's presentation and physical exam, appeared to have had a near syncopal episode versus mechanical fall. Either way, patient is back to his baseline status. No acute complaints. Vital signs within acceptable limits. We will obtain basic labs, screening EKG, as well as a CT brain and C- spine as he is elderly on Plavix. He was in agreement this plan. Tetanus will be updated. He will receive a 1 L fluid bolus. EKG shows chronic findings. Imaging negative for any acute injury. Labs unr emarkable. On reevaluation, patient is feeling unchanged. Remains asymptomatic with no complaints. Orthostatic vital signs negative. Discussed the results with him as well as family. He'll be discharged with this time. He is ambulating throughout the department without issue. Patient was in agreement this plan. Strict return precautions discussed. I instructed the patient to follow up with their PCP in the next 1-3 days I explained that the patient should return to the emergency department if they experience any worsening symptoms. Strict return precautions were discussed with the patient. The patient expressed understanding of these instructions. I answered all questions that the patient had. The patient was discharged home in good condition with their prescriptions and follow up information. Undiagnosed new problem with uncertain prognosis? @ -No Drug Therapy requiring intensive monitoring for toxicity (Heparin, Nitro, Insulin, Cardizem)? @ -No Were any procedures done? @ -No Diagnosis/symptom? @ -Mechanical fall, near syncope, abrasion Acute, or Chronic, or Acute on Chronic? @ -Acute Uncomplicated (without systemic symptoms) or Complicated (systemic symptoms)? @ -Complicated Side effects of treatment? @ -No Exacerbation, Progression, or Severe Exacerbation? @ -No Poses a threat to life or bodily function? How? (Chest pain, [place], [place], pneumonia, PE, COPD, DKA, ARF, appy, cholecystitis, CVA, Diverticulitis, Homicidal, Suicidal, threat to staff... and all critical care pts) @ -No - Lab Data Result diagrams: 07/20/23 21:01 07/20/23 21:01 Lab Results 07/20/23 07/20/23 Range/Units 21:01 21:01 WBC 6.9 (3.8-10.6) k/uL RBC 4.20 L (4.30-5.90) m/uL Hgb 13.3 (13.0-17.5) gm/dL Hct 38.9 L (39.0-53.0) % MCV 92.6 (80.0-100.0) fL MCH 31.7 (25.0-35.0) pg MCHC 34.3 (31.0-37.0) g/dL RDW 12.7 (11.5-15.5) % Plt Count 201 (150-450) k/uL MPV 8.1 Neutrophils % 71 % Lymphocytes % 18 % Monocytes % 6 % Eosinophils % 4 % Basophils % 0 % Neutrophils # 4.9 (1.3-7.7) k/uL Lymphocytes # 1.2 (1.0-4.8) k/uL Monocytes # 0.4 (0-1.0) k/uL Eosinophils # 0.3 (0-0.7) k/uL Basophils # 0.0 (0-0.2) k/uL Sodium 131 L (137-145) mmol/L Potassium 4.0 (3.5-5.1) mmol/L Chloride 104 (98-107) mmol/L Carbon Dioxide 21 L (22-30) mmol/L Anion Gap 6 mmol/L BUN 16 (9-20) mg/dL Creatinine 0.93 (0.66-1.25) mg/dL Est GFR (CKD-EPI)AfAm 87 (>60 ml/min/1.73 sqM) Est GFR (CKD-EPI)NonAf 75 (>60 ml/min/1.73 sqM) Glucose 131 H (74-99) mg/dL Calcium 8.2 L (8.4-10.2) mg/dL - EKG Data -: EKG Interpreted by Me EKG Comments: 12-lead Electrocardiogram Interpretation Note EKG was reviewed and interpreted by myself. 12-lead ECG performed at 2054 is interpreted by me as revealing sinus bradycardia with first-degree AV block at a rate of 58 beats per minute. [place] is rightward deviated. [place] interval is prolonged at 242 ms. QRS duration is 125 ms. QTC is 435 ms.. There were no ST or T wave abnormalities to suggest myocardial ischemia or injury. R wave progression across the precordium was satisfactory. By my interpretation this EKG is non-diagnostic for acute ischemia. When compared with prior EKG from May 2022, no significant change. Disposition Clinical Impression: Fall, Near syncope, Abrasion Disposition: HOME SELF-CARE Condition: Good Instructions (If sedation given, give patient instructions): Fall Prevention for Older Adults (ED) Is patient prescribed a controlled substance at d/c from ED?: No Referrals: Alvaro Grant MD [Primary Care Provider] - 1-2 days Time of Disposition: 22:22
[2023-07-20 22:32] VITALS: RESP 16
[2023-07-20 22:55] VITALS: BP 125/73; PULSE 56; TEMP 97.6
== END 2023-07-20 22:49 | disposition home or self-care (01) ==
LOC: EC 20:04
DX: S00.01XA Abrasion of scalp, initial encounter (principal); R55 Syncope and collapse; E07.9 Disorder of thyroid, unspecified; Z86.73 Personal history of transient ischemic attack (TIA), and cerebral infarction without residual deficits; F17.200 Nicotine dependence, unspecified, uncomplicated; Z88.5 Allergy status to narcotic agent; Z79.890 Hormone replacement therapy; Z79.02 Long term (current) use of antithrombotics/antiplatelets; Z79.899 Other long term (current) drug therapy; W18.30XA Fall on same level, unspecified, initial encounter; Y93.01 Activity, walking, marching and hiking; Y92.009 Unspecified place in unspecified non-institutional (private) residence as the place of occurrence of the external cause
CPT/HCPCS: 36415; 70450; 72125; 80048; 85025; 93005; 96360; 99284; 99285

== ENCOUNTER 2024-07-13 17:47 | Inpatient (IN) | payer MEDICARE ==
--- NOTE | 2024-07-13 19:12 | ED ---
General Adult HPI - General Chief complaint: Psychiatric Symptoms Stated complaint: Petitioned Time Seen by Provider: 07/13/24 18:18 Source: patient, RN notes reviewed, old records reviewed Mode of arrival: EMS - History of Present Illness Initial comments: 84-year-old male presenting with suicidal ideation with suicidal plan. Patient states he got into an argument with his which has been an ongoing issue and he wrote a note and states that he was going to jump in the river. Patient denies medication overdose. Denies suicide attempt. - Related Data Home Medications Medication Instructions Recorded Confirmed Levothyroxine Sodium [Synthroid] 200 mcg PO DAILY 12/08/14 07/13/24 Sertraline HCl [Zoloft] 100 mg PO DAILY 12/08/14 07/13/24 Cholecalciferol [Vitamin D3 (25 25 mcg PO DAILY 05/11/22 07/13/24 Mcg = 1000 Iu)] Fenofibrate Nanocrystallized 145 mg PO DAILY 05/11/22 07/13/24 [Fenofibrate] Ascorbic Acid [Vitamin C] 500 mg PO DAILY 07/20/23 07/13/24 Carbidopa/Levodopa 1.5 tab PO TID 07/20/23 07/13/24 [Carbidopa-Levodopa 25-100 Tab] Acetaminophen [Tylenol Extra 500 - 1,000 mg PO Q6H PRN 07/13/24 07/13/24 Strength] Allergies Allergy/AdvReac Type Severity Reaction Status Date / Time codeine Allergy Rash/Hives, Verified 07/13/24 19:24 swelling of face Review of Systems ROS Statement: Those systems with pertinent positive or pertinent negative responses have been documented in the HPI. ROS Other: All systems not noted in ROS Statement are negative. Past Medical History Past Medical History: CVA/TIA, Eye Disorder, Thyroid Disorder Additional Past Medical History / Comment(s): Cataract, possible parkinsons. Tremors History of Any Multi-Drug Resistant Organisms: None Reported Past Surgical History: Adenoidectomy, Joint Replacement, Tonsillectomy Additional Past Surgical History / Comment(s): Cataract R eye,R shoulder Past Anesthesia/Blood Transfusion Reactions: No Reported Reaction Past Psychological History: No Psychological Hx Reported Smoking Status: Current some day smoker Past Alcohol Use History: None Reported Past Drug Use History: None Reported - Past Family History Mother Family Medical History: No Reported History General Exam General appearance: alert, in no apparent distress Head exam: Present: atraumatic, normocephalic Eye exam: Present: normal appearance, PERRL ENT exam: Present: normal exam Neck exam: Present: normal inspection. Absent: tenderness, meningismus Respiratory exam: Present: normal lung sounds bilaterally. Absent: respiratory distress, wheezes Cardiovascular Exam: Present: regular rate, normal rhythm GI/Abdominal exam: Present: soft. Absent: distended, tenderness, rebound Extremities exam: Present: normal inspection Neurological exam: Present: alert, oriented X3, CN II-XII intact. Absent: motor sensory deficit Psychiatric exam: Present: depressed, suicidal ideation Skin exam: Present: warm, dry, intact. Absent: cyanosis, diaphoretic Course Vital Signs 07/13/24 17:59 Temperature 98.5 F Pulse Rate 60 Respiratory 20 Rate Blood Pressure 149/89 O2 Sat by Pulse 97 Oximetry - Reevaluation(s) Reevaluation #1: 07/13/24 19:11 Medically cleared for EPS evaluation Medical Decision Making - Medical Decision Making Was pt. sent in by a medical professional or institution (, PA, HEALTHCARE SALES REPRESENTATIVE, urgent care, hospital, or prison...) When possible be specific @ -No Did you speak to anyone other than the patient for history (EMS, parent, family, police, friend...)? What history was obtained from this source @ -No Did you review nursing and triage notes (agree or disagree)? Why? @ -I reviewed and agree with nursing and triage notes Were old charts reviewed (outside hosp., previous admission, EMS record, old EKG, old radiological studies, urgent care reports/EKG's, prison records)? Report findings @ -No old charts were reviewed Differential Mental Health Depression, anxiety, bipolar, psychosis, schizophrenia, borderline personality, situational depression, adjustment disorder, behavioral disorder, brain tumor, malingering, substance abuse, encephalopathy, medication reaction, dementia, hypothyroidism, degenerative neurologic disorder, lupus.... This is not meant to be all-inclusive list EKG interpreted by me (3pts min.). @ -As above X-rays interpreted by me (1pt min.). @ -None done CT interpreted by me (1pt min.). @ -None done U/S interpreted by me (1pt. min.). @ -None done What testing was considered but not performed or refused? (CT, X-rays, U/S, labs)? Why? @ -None What meds were considered but not given or refused? Why? @ -None Did you discuss the management of the patient with other professionals (professionals i.e. , PA, HEALTHCARE SALES REPRESENTATIVE, lab, RT, psych nurse, case management social worker, caustics loader, teacher, court security officer, manager of case management)? Give summary @ -Patient evaluated by EPS, will require inpatient evaluation and treatment. I agree with this. Was smoking cessation discussed for >3mins.? @ -No Was critical care preformed (if so, how long)? @ -No Were there social determinants of health that impacted care today? How? (Homelessness, low income, unemployed, alcoholism, drug addiction, transportation, low edu. Level, literacy, decrease access to med. care, [facility], rehab)? @ -No Was there de-escalation of care discussed even if they declined (Discuss DNR or withdrawal of care, Hospice)? DNR status @ -No What co-morbidities impacted this encounter? (DM, HTN, Smoking, COPD, CAD, Cancer, CVA, ARF, Chemo, Hep., AIDS, mental health diagnosis, sleep apnea, morbid obesity)? @ -None Was patient admitted / discharged? Hospital course, mention meds given and route, prescriptions, significant lab abnormalities, going to OR and other pertinent info. @ -84-year-old male with suicidal ideation, suicidal plan. Patient does have significant risk factors for suicide. I did complete a clinical certification on this patient. He will be admitted to this institution. Undiagnosed new problem with uncertain prognosis? @ -No Drug Therapy requiring intensive monitoring for toxicity (Heparin, Nitro, Insul in, Cardizem)? @ -No Were any procedures done? @ -No Diagnosis/symptom? @depression, suicidal ideation Acute, or Chronic, or Acute on Chronic? @Acute Uncomplicated (without systemic symptoms) or Complicated (systemic symptoms)? @ -Default Side effects of treatment? @ -No Exacerbation, Progression, or Severe Exacerbation? @ -No Poses a threat to life or bodily function? How? (Chest pain, USA, IA, pneumonia, PE, COPD, DKA, ARF, appy, cholecystitis, CVA, Diverticulitis, Homicidal, Suicidal, threat to staff... and all critical care pts) @ -yes, self harm Disposition Clinical Impression: Suicidal ideation, Depression Disposition: ADMITTED IP TO THIS [facility] Condition: Stable Is patient prescribed a controlled substance at d/c from ED?: No Referrals: Alvaro Grant MD [Primary Care Provider] - 1-2 days Time of Disposition: 20:15
[2024-07-13] MEDS ORDERED: MAGNESIUM HYDROXIDE 2,400 MG/30 ML CUP PO PRN (21:49)
[2024-07-13] MEDS ORDERED: ACETAMINOPHEN TAB 325 MG TAB PO PRN (21:49)
[2024-07-13] MEDS ORDERED: MAG HYDROX/AL HYDROX/SIMETH 355 ML BOTTLE PO PRN (21:49)
[2024-07-13] MEDS ORDERED: traZODone HCL 50 MG TAB PO PRN (21:49)
[2024-07-13] MEDS ORDERED: IBUPROFEN 600 MG TAB PO PRN (21:49)
[2024-07-13] MEDS: CARBIDOPA-LEVODOPA 25-100 MG 1 EACH TAB PO SCH (22:55)
[2024-07-14] MEDS: LEVOTHYROXINE 100 MCG TAB PO SCH (06:58)
[2024-07-14] MEDS: ASCORBIC ACID 500 MG TAB PO SCH (09:48)
[2024-07-14] MEDS: FENOFIBRATE 160 MG TAB PO SCH (09:49)
[2024-07-14] MEDS: CHOLECALCIFEROL 25 MCG (1000 IU) TABLET PO SCH (09:49)
[2024-07-14] MEDS: SERTRALINE 100 MG TAB PO SCH (09:50)
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
[2024-07-14 15:44] LABS: Basophils % (A) 0 %; Eosinophils # (A) 0.2 k/uL (0-0.7); Eosinophils % (A) 4 %; HGB 13.7 gm/dL (13.0-17.5); Lymphocytes # (A) 1.9 k/uL (1.0-4.8); Lymphocytes % (A) 34 %; MCH 31.2 pg (25.0-35.0); MCHC 32.7 g/dL (31.0-37.0); MCV 95.4 fL (80.0-100.0); Mean Platelet Volume 7.8; Monocytes # (A) 0.4 k/uL (0-1.0); Monocytes % (A) 7 %; Neutrophils # (A) 2.9 k/uL (1.3-7.7); Neutrophils % (A) 53 %; Platelet Count 246 k/uL (150-450); RBC 4.41 m/uL (4.30-5.90); RDW 12.4 % (11.5-15.5); WBC 5.4 k/uL (3.8-10.6)
[2024-07-14 15:52] LABS: ALT <6 U/L (4-49); AST 28 U/L (17-59); African American GFR (CKD) 61 (>60 ml/min/1.73 sqM); Alkaline Phosphatase 44 U/L (38-126); Anion Gap 2 mmol/L; Blood Urea Nitrogen 19 mg/dL (9-20); Calcium 9.6 mg/dL (8.4-10.2); Carbon Dioxide 29 mmol/L (22-30); Chloride 106 mmol/L (98-107); Glucose 116 mg/dL (74-99); Non-African American GFR(CKD) 53 (>60 ml/min/1.73 sqM); Potassium 4.3 mmol/L (3.5-5.1); Sodium 137 mmol/L (137-145); Total Bilirubin 0.7 mg/dL (0.2-1.3); Total Protein 6.4 g/dL (6.3-8.2)
[2024-07-14 17:24] LABS: Amphetamine Screen,Urine Not Detected (NotDetected); Barbiturate Screen,Urine Not Detected (NotDetected); Benzodiazepines Screen,Urine Not Detected (NotDetected); Cocaine Screen,Urine Not Detected (NotDetected); Methadone Screen, Urine Not Detected (NotDetected); Opiate Screen,Urine Not Detected (NotDetected); Oxycodone Screen, Urine Not Detected (NotDetected); Phencyclidine Screen,Urine Not Detected (NotDetected); Tricyclic Antidepressant,Urine Not Detected (NotDetected); Urn Cannabinoid Scrn Not Detected (NotDetected)
[2024-07-14 17:56] LABS: Appearance,Urine Clear (Clear); Bilirubin,Urine Negative (Negative); Blood,Urine Negative (Negative); Color,Urine Light Yellow; Glucose,Urine (UA) Negative (Negative); Ketones,Urine Negative (Negative); Leukocyte Esterase,Urine Negative (Negative); Nitrite,Urine Negative (Negative); PH, Urine 6.5 (5.0-8.0); Protein,Urine Negative (Negative); Specific Gravity,Urine 1.015 (1.001-1.035)
[2024-07-14 21:14] LABS: Chol/HDL Ratio 2.75 Ratio; LDL Cholesterol,Calculated 79.4 mg/dL (0.0-131.0); VLDL Calculation 17.96 mg/dL (5.00-40.00)
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
[2024-07-15] MEDS: SERTRALINE 25 MG TAB PO SCH (09:38)
--- NOTE | 2024-07-15 12:27 | P.PN ---
Progress Note - Text Progress Note Date: 07/15/24 Interval History: Patient was seen in his room and was directable and agreeable to speak with wr iter in the office. He states feeling "fine "today and expressed no concerns. He states he still has not spoken to his but was encouraged to speak to her as discharge is anticipated to be for tomorrow back home with her. He states he still is upset with her for putting him in the hospital however patient was encouraged to continue to work on communicating with his . At this time patient denies any suicidal or homical ideations, intent or plan. Patient denies any auditory, visual hallucinations and denies any paranoia or delusions. Patient denies any side effects from the medications and has been compliant with meds. Mental Status Exam: General Appearance: Patient appears to be stated age is alert, directable, and cooperative. Behavior: Patient is calmly seated without any agitated behavior. Speech: Patient's speech is fluent and nonpressured. Mood/Affect: Mood is improving mildly, affect is congruent and constricted. Suicidality/Homicidality: Patient denies having any suicidal or homicidal ideation intent or plan. Perceptions: Patient denies any visual hallucinations and denies any auditory hallucinations Though content/process: There is no evidence of any delusional thought content and thought process is linear and goal-directed. Memory and concentration: AOX3, grossly intact for the purposes of this session Judgment and insight: Improving mildly Assessment Depression, unspecified Tobacco use disorder, mild Plan: -Patient continues to meet criteria for inpatient psychiatric admission for symptom stabilization and safety. -Medications: Zoloft increased to 125 mg today and continue trazodone as needed -NRT -nicotine patch - on board for discharge planning. Encouraged the patient to participate in milieu. Patient deferred on 07/14. Anticipate discharge tomorrow, back home with .
[2024-07-15 18:19] VITALS: RESP 20
[2024-07-16 09:34] VITALS: BP 96/61; PULSE 61; TEMP 98.1
--- NOTE | 2024-07-16 12:40 | P.DS ---
Providers Date of admission: 07/13/24 21:48 Expected date of discharge: 07/16/24 Attending physician: Sigrid Crocker MD Consults: 07/13/24 21:49 Consult Physician Routine Consulting Provider: Alvaro Grant Consult Reason/Comments: H&P and medical Do you want consulting provider notified?: Yes Primary care physician: Alvaro Grant - Discharge Diagnosis(es) (1) Major depressive disorder, recurrent, unspecified Current Visit: Yes Status: Acute Priority: High (2) Nicotine dependence Current Visit: Yes Status: Acute Priority: Low Hospital Course: Admission HPI: Admission note was completed by specifications writer "patient presented to the hospital via EMS with a chief chief complaint of psychiatric symptoms. Per ED note, "84-year-old male presenting with suicidal ideation with suicidal plan. Patient states he got into an argument with his which has been an ongoing issue and he will do no and states that he was going to jump in the river. Patient denies medication overdose. Denies suicide attempt". Patient was seen in the hallway but readily agreed to interview in office. He reports being here due to his . He states being for 60 years and roughly 50 years ago he was able to buy his repossessed silverware however he had forgot about it up until recently when he pawned it for $1200. He states his became upset about this and began arguing with him so he left to smoke a cigar at the river. He states his followed him and then the police arrived and he ended up here. He states he did write a note to his that that stated he loved her and that she would be better off without him. He denies this being a suicide attempt and states that he was acting out on his emotions and he denied any prior suicide attempts. He states being on psychotropic medications for the past 20 years with no prior psychiatric diagnoses. He states being diagnosed with mild Parkinson's disease roughly 5 years ago. Patient denies any suicidal or homicidal ideations intent or plan. At this time patient denies any auditory or visual hallucinations. Patient denies any flight of ideas racing thoughts and increased in goal directed behavior. Patient admits to smoking 3 cigars/day but denied any alcohol use." Hospital course: Upon admission to the unit patient was admitted involuntarily on a petition and certificate and a second certificate was completed and faxed to the courts. Patient ended up signing a deferral with the immigration attorney and agreeing to treatment. Patient got along well with other patients on the unit and followed unit protocol. Patient was compliant with the medications and denied any side effects throughout hospital course. Patient's Zoloft was increased to 125 mg daily for depression. Patient spoke of his stressors and engaged in therapy both group and individual. Patient was also seen by medical team for history and physical exam. Throughout the course of the hospitalization patient gradually improved with regards to mood, anxiety, sleep and returned back to their baseline level of functioning. Patient spoke of his prior suicidal ideations as more of an impulsive act and he states that he now understands the risks with making statements like this. On the day of discharge patient denied any suicidal or homicidal ideations intent or plan denied any auditory or visual hallucinations. The patient denied any access to guns or weapons. Patient denied any paranoia and did not endorse any delusions. Patient does not have a significant history of substance abuse and was counseled on abstaining from all substances including alcohol and marijuana. Patient was also counseled on the medications and need for regular compliance and was encouraged to follow-up with their outpatient appointment for mental health and also for primary care. Prior to discharge a family meeting will be arranged by social work associate to answer any questions and ensure safety upon discharge incuding making sure that guns/weapons are either removed from the home or locked away. Mental status exam: General Appearance: Patient appears to be stated age is alert, pleasant, and cooperative. Patient is in no acute distress and has improved hygiene and grooming Behavior: Patient is calmly seated without any agitated behavior. Speech: Patient's speech is fluent and nonpressured. Mood/Affect: Patient reports their mood is "good", affect is congruent and euthymic. Suicidality/Homicidality: Patient denies having any suicidal or homicidal ideation intent or plan. Perceptions: Patient denies any auditory or visual hallucinations. Though content/process: There is no evidence of any delusional thought content and thought process is linear and goal-directed. Memory and concentration: AOX3, grossly intact for the purposes of this session. Can spell "WORLD" backwards correctly. Judgment and insight: improved with guarded prognosis Impression: Major depressive disorder, recurrent, unspecified Nicotine dependence Plan: -Continue with discharge today as patient has improved and stabilized psychiatrically and is not currently an imminent threat to themself and/or others. -Continue medications: Zoloft 125 mg daily for depression -Patient was counseled on the need for medication compliance and appropriate follow-up at mental health and also primary care for medical issues. Patient verbalized understanding and agreed. -Social work to help coordinate patients discharge today arrange for and conduct family meeting to ensure safety upon discharge and answer any questions/concerns. also to ensure safe home environment that guns/weapons are either removed from the home or locked away. Social work also to arrange for patients follow up appointments with [facility] for psychiatric care along with follow up with primary care provider. -Patient was instructed to return to the hospital or seek immediate medical care if their psychiatric or medical symptoms do worsen or reoccur. Abnormal Labs 07/14/24 15:10 Glucose 116 H Allergies Allergy/AdvReac Type Severity Reaction Status Date / Time codeine Allergy Rash/Hives, Verified 07/13/24 19:24 swelling of face Vital Signs Temp 96.4 F L 07/15/24 18:17 Pulse 70 07/15/24 18:17 Resp 20 07/15/24 18:17 BP 135/64 07/15/24 18:17 Pulse Ox 100 07/15/24 18:17 FiO2 INSERT DATA FORMATS Patient Condition at Discharge: Stable Plan - Discharge Summary Discharge Rx Participant: Yes New Discharge Prescriptions: New Ibuprofen [Motrin] 600 mg PO Q6HR PRN tab PRN Reason: Moderate Pain (Scale 4 To 6) Sertraline [Zoloft] 100 mg PO DAILY 30 Days #30 tab Sertraline [Zoloft] 25 mg PO DAILY 30 Days #30 tab Continue Levothyroxine Sodium [Synthroid] 200 mcg PO DAILY Cholecalciferol [Vitamin D3 (25 Mcg = 1000 Iu)] 25 mcg PO DAILY Carbidopa/Levodopa [Carbidopa/Levodopa 25-100 Tab] 1.5 tab PO TID Fenofibrate Nanocrystallized [Fenofibrate] 145 mg PO DAILY Ascorbic Acid [Vitamin C] 500 mg PO DAILY Acetaminophen [Tylenol Extra Strength] 500 - 1,000 mg PO Q6H PRN PRN Reason: Fever And/ Or Pain Discontinued Sertraline HCl [Zoloft] 100 mg PO DAILY Discharge Medication List Levothyroxine Sodium [Synthroid] 200 mcg PO DAILY 12/08/14 [History] Cholecalciferol [Vitamin D3 (25 Mcg = 1000 Iu)] 25 mcg PO DAILY 05/11/22 [History] Fenofibrate Nanocrystallized [Fenofibrate] 145 mg PO DAILY 05/11/22 [History] Ascorbic Acid [Vitamin C] 500 mg PO DAILY 07/20/23 [History] Carbidopa/Levodopa [Carbidopa/Levodopa 25-100 Tab] 1.5 tab PO TID 07/20/23 [History] Acetaminophen [Tylenol Extra Strength] 500 - 1,000 mg PO Q6H PRN 07/13/24 [History] Ibuprofen [Motrin] 600 mg PO Q6HR PRN tab 07/16/24 [Rx] Sertraline [Zoloft] 25 mg PO DAILY 30 Days #30 tab 07/16/24 [Rx] Sertraline [Zoloft] 100 mg PO DAILY 30 Days #30 tab 07/16/24 [Rx] Follow up Appointment(s)/Referral(s): [facility] [Outside] - 07/23/24 3:00 pm ( @ 15:00 Rosa Le) Alvaro Grant MD [Primary Care Provider] - 1-2 days Patient Instructions/Handouts: How to Stop Smoking (DC), Depression (DC) Activity/Diet/Wound Care/Special Instructions: [facility] Discharge Info Avoid the use of street drugs and alcohol. Take all medications as prescribed. When you are in need of refills on your medications, please contact your out patient medical provider and/or outpatient psychiatrist. Please go to your scheduled outpatient appointments for aftercare treatment. If symptoms return or become worse, call the crisis line at or and/or visit the nearest emergency room for assistance. National Suicide and Crisis Lifeline - call or text 877. Discharge Disposition: HOME SELF-CARE
== END 2024-07-16 13:15 | disposition home or self-care (01) | DRG 885 ==
LOC: EC 17:47 → 3MHU 21:48
PROVIDERS: ADMIT Psychiatry & Neurology Psychiatry; ATTEND Psychiatry & Neurology Psychiatry
DX: F33.9 Major depressive disorder, recurrent, unspecified (principal); R45.851 Suicidal ideations; G20.A1 Parkinson's disease without dyskinesia, without mention of fluctuations; E89.0 Postprocedural hypothyroidism; I10 Essential (primary) hypertension; E78.5 Hyperlipidemia, unspecified; F17.290 Nicotine dependence, other tobacco product, uncomplicated; F41.9 Anxiety disorder, unspecified; G47.00 Insomnia, unspecified; M19.012 Primary osteoarthritis, left shoulder; Z79.890 Hormone replacement therapy; Z79.899 Other long term (current) drug therapy; Z86.73 Personal history of transient ischemic attack (TIA), and cerebral infarction without residual deficits; Z81.8 Family history of other mental and behavioral disorders
CPT/HCPCS: 80053; 80061; 80306; 81003; 82075; 83036; 84443; 85025; 87635; 99285

== ENCOUNTER 2024-08-28 10:24 | Inpatient (IN) | payer MEDICARE ==
--- NOTE | 2024-08-28 11:12 | ED ---
General Adult HPI - General Chief complaint: Fall Stated complaint: Fall Time Seen by Provider: 08/28/24 10:30 Source: patient, RN notes reviewed, old records reviewed Mode of arrival: ambulatory - History of Present Illness Initial comments: This is an 84-year-old male who presents to the emergency department complaining that he went out for his morning walk tripped and landed on his right hip and now he cannot move it without significant pain. Patient denies hitting his head patient denies any neck pain patient has numbness weakness. Patient has chest pain palpitation significantly breathing. Patient denies any back pain. Patient's only complaint is right hip pain. Patient states [facility] and so he would like them consulted if his hip is indeed broken - Related Data Home Medications Medication Instructions Recorded Confirmed Levothyroxine Sodium [Synthroid] 200 mcg PO DAILY 12/08/14 08/28/24 Cholecalciferol [Vitamin D3 (25 25 mcg PO DAILY 05/11/22 08/28/24 Mcg = 1000 Iu)] Fenofibrate Nanocrystallized 145 mg PO DAILY 05/11/22 08/28/24 [Fenofibrate] Ascorbic Acid [Vitamin C] 500 mg PO DAILY 07/20/23 08/28/24 Carbidopa/Levodopa 1.5 tab PO TID 07/20/23 08/28/24 [Carbidopa/Levodopa 25-100 Tab] Acetaminophen [Tylenol Extra 500 - 1,000 mg PO Q6H PRN 07/13/24 08/28/24 Strength] Previous Rx's Medication Instructions Recorded Sertraline [Zoloft] 25 mg PO DAILY 30 Days #30 tab 07/16/24 Sertraline [Zoloft] 100 mg PO DAILY 30 Days #30 tab 07/16/24 Allergies Allergy/AdvReac Type Severity Reaction Status Date / Time codeine Allergy Rash/Hives, Verified 08/28/24 12:25 swelling of face Review of Systems ROS Statement: Those systems with pertinent positive or pertinent negative responses have been documented in the HPI. ROS Other: All systems not noted in ROS Statement are negative. Past Medical History Past Medical History: CVA/TIA, Eye Disorder, Thyroid Disorder Additional Past Medical History / Comment(s): Cataract, possible parkinsons. Tr emors History of Any Multi-Drug Resistant Organisms: None Reported Past Surgical History: Adenoidectomy, Joint Replacement, Tonsillectomy Additional Past Surgical History / Comment(s): Cataract R eye,R shoulder Past Anesthesia/Blood Transfusion Reactions: No Reported Reaction Past Psychological History: No Psychological Hx Reported Smoking Status: Current every day smoker Past Alcohol Use History: None Reported Past Drug Use History: None Reported - Past Family History Mother Family Medical History: No Reported History General Exam - General Exam Comments Initial Comments: GENERAL: Patient is well-developed and well-nourished. Patient is nontoxic and well- hydrated and is in mild distress. ENT: Neck is soft and supple. No significant lymphadenopathy is noted. Oropharynx is clear. Moist mucous membranes. Neck has full range of motion without eliciting any pain. EYES: The sclera were anicteric and conjunctiva were pink and moist. Extraocular movements were intact and pupils were equal round and reactive to light. Eyelids were unremarkable. PULMONARY: Unlabored respirations. Good breath sounds bilaterally. No audible rales rhonchi or wheezing was noted. CARDIOVASCULAR: There is a regular rate and rhythm without any murmurs gallops or rubs. ABDOMEN: Soft and nontender with normal bowel sounds. SKIN: Skin is clear with no lesions or rashes and otherwise unremarkable. NEUROLOGIC: Patient is alert and oriented x3. Cranial nerves II through XII are grossly intact. Motor and sensory are also intact. Normal speech, volume and content. Symmetrical smile. MUSCULOSKELETAL: Patient is left hip is externally rotated and he is unable to move it because of the pain. LYMPHATICS: No significant lymphadenopathy is noted PSYCHIATRIC: Normal psychiatric evaluation. Course Vital Signs 08/28/24 10:30 Temperature 98.7 F Pulse Rate 65 Respiratory 18 Rate Blood Pressure 125/88 O2 Sat by Pulse 95 Oximetry Medical Decision Making - Medical Decision Making EKG is interpreted by myself. EKG shows a sinus rhythm at 64 bpm OH was 238 QRS is 119 QT interval is 430 QTc is 439. Patient's EKG shows no ST segment elevation or depression Was pt. sent in by a medical professional or institution (RANDI Arshad, FINANCE ADMINISTRATOR, urgent care, hospital, or intermediate...) When possible be specific @ -No Did you speak to anyone other than the patient for history (EMS, parent, family, police, friend...)? What history was obtained from this source @ -No Did you review nursing and triage notes (agree or disagree)? Why? @ -I reviewed and agree with nursing and triage notes Were old charts reviewed (outside hosp., previous admission, EMS record, old EKG, old radiological studies, urgent care reports/EKG's, intermediate records)? Report findings @ -No old charts were reviewed Differential Diagnosis? @ -Differential Musculoskeletal Muscular strain, contusion, ligament sprain, fracture, arthritis, septic arthritis, bursitis, cellulitis, muscle spasm, nerve compression, DVT, arterial occlusion, herpes zoster, electrolyte abnormality, tumor.... This is not meant to be in all inclusive list EKG interpreted by me (3pts min.). @ -As above X-rays interpreted by me (1pt min.). @ -X-ray shows a right intertrochanteric fracture of the femur CT interpreted by me (1pt min.). @ -None done U/S interpreted by me (1pt. min.). @ -None done What testing was considered but not performed or refused? (CT, X-rays, U/S, labs)? Why? @ -None What meds were considered but not given or refused? Why? @ -None Did you discuss the management of the patient with other professionals (professionals i.e. , PA, FINANCE ADMINISTRATOR, lab, RT, psych nurse, health social work professor, practice administrator, teacher, ordnance corps officer, case hardener)? Give summary @ -I spoke with Dr. Keys he agreed to admit the patient admit the patient wrote admitting orders Was smoking cessation discussed for >3mins.? @ -No Was critical care preformed (if so, how long)? @ -No Were there social determinants of health that impacted care today? How? (Homelessness, low income, unemployed, alcoholism, drug addiction, transportation, low edu. Level, literacy, decrease access to med. care, intermediate, rehab)? @ -No Was there de-escalation of care discussed even if they declined (Discuss DNR or withdrawal of care, Hospice)? DNR status @ -No What co-morbidities impacted this encounter? (DM, HTN, Smoking, COPD, CAD, Canc er, CVA, ARF, Chemo, Hep., AIDS, mental health diagnosis, sleep apnea, morbid obesity)? @ -None Was patient admitted / discharged? Hospital course, mention meds given and route, prescriptions, significant lab abnormalities, going to OR and other pertinent info. @ -Patient will be admitted to Dr. Keys with a consult to [facility] for medical clearance for surgery. Patient was given pain medicines while in the emergency department. Patient and patient's requested [facility] because they have been there in the past. Undiagnosed new problem with uncertain prognosis? @ -No Drug Therapy requiring intensive monitoring for toxicity (Heparin, Nitro, Insulin, Cardizem)? @ -No Were any procedures done? @ -No Diagnosis/symptom? @ -Intertrochanteric hip fracture Acute, or Chronic, or Acute on Chronic? @ -Acute Uncomplicated (without systemic symptoms) or Complicated (systemic symptoms)? @ -Complicated Side effects of treatment? @ -No Exacerbation, Progression, or Severe Exacerbation? @ -No Poses a threat to life or bodily function? How? (Chest pain, [place], [place], pneumonia, PE, COPD, DKA, ARF, appy, cholecystitis, CVA, Diverticulitis, Homicidal, Suicidal, threat to staff... and all critical care pts) @ -Patient needs surgery to prevent significant morbidity - Lab Data Result diagrams: 08/28/24 10:52 08/28/24 10:52 Lab Results 08/28/24 08/28/24 08/28/24 Range/Units 10:52 10:52 10:52 WBC 5.7 (3.8-10.6) k/uL RBC 4.29 L (4.30-5.90) m/uL Hgb 13.3 (13.0-17.5) gm/dL Hct 40.1 (39.0-53.0) % MCV 93.4 (80.0-100.0) fL MCH 31.1 (25.0-35.0) pg MCHC 33.3 (31.0-37.0) g/dL RDW 13.1 (11.5-15.5) % Plt Count 243 (150-450) k/uL MPV 8.1 Neutrophils % 63 % Lymphocytes % 25 % Monocytes % 6 % Eosinophils % 4 % Basophils % 1 % Neutrophils # 3.6 (1.3-7.7) k/uL Lymphocytes # 1.4 (1.0-4.8) k/uL Monocytes # 0.3 (0-1.0) k/uL Eosinophils # 0.2 (0-0.7) k/uL Basophils # 0.0 (0-0.2) k/uL PT 10.7 (10.0-12.5) sec INR 1.0 (<1.2) APTT 22.6 (22.0-30.0) sec Sodium 138 (137-145) mmol/L Potassium 4.4 (3.5-5.1) mmol/L Chloride 106 (98-107) mmol/L Carbon Dioxide 27 (22-30) mmol/L Anion Gap 5 mmol/L BUN 23 H (9-20) mg/dL Creatinine 1.31 H (0.66-1.25) mg/dL Est GFR (CKD-EPI)AfAm 57 (>60 ml/min/1.73 sqM) Est GFR (CKD-EPI)NonAf 50 (>60 ml/min/1.73 sqM) Glucose 105 H (74-99) mg/dL Calcium 9.2 (8.4-10.2) mg/dL Magnesium 1.8 (1.6-2.3) mg/dL Total Bilirubin 0.5 (0.2-1.3) mg/dL AST 26 (17-59) U/L ALT 9 (4-49) U/L Alkaline Phosphatase 48 (38-126) U/L Total Protein 6.8 (6.3-8.2) g/dL Albumin 4.1 (3.5-5.0) g/dL Disposition Clinical Impression: Fall, Intertrochanteric fracture of right hip Disposition: ADMITTED IP TO THIS HOSP Referrals: Alvaro Grant MD [Primary Care Provider] - 1-2 days Time of Disposition: 12:37
[2024-08-28 11:14] LABS: Basophils % (A) 1 %; Eosinophils # (A) 0.2 k/uL (0-0.7); Eosinophils % (A) 4 %; HCT 40.1 % (39.0-53.0); HGB 13.3 gm/dL (13.0-17.5); Lymphocytes # (A) 1.4 k/uL (1.0-4.8); Lymphocytes % (A) 25 %; MCH 31.1 pg (25.0-35.0); MCHC 33.3 g/dL (31.0-37.0); MCV 93.4 fL (80.0-100.0); Mean Platelet Volume 8.1; Monocytes # (A) 0.3 k/uL (0-1.0); Monocytes % (A) 6 %; Neutrophils # (A) 3.6 k/uL (1.3-7.7); Neutrophils % (A) 63 %; Platelet Count 243 k/uL (150-450); RBC 4.29 m/uL (4.30-5.90); RDW 13.1 % (11.5-15.5); WBC 5.7 k/uL (3.8-10.6)
[2024-08-28 11:23] LABS: ALT 9 U/L (4-49); AST 26 U/L (17-59); African American GFR (CKD) 57 (>60 ml/min/1.73 sqM); Albumin 4.1 g/dL (3.5-5.0); Alkaline Phosphatase 48 U/L (38-126); Anion Gap 5 mmol/L; Blood Urea Nitrogen 23 mg/dL (9-20); Calcium 9.2 mg/dL (8.4-10.2); Carbon Dioxide 27 mmol/L (22-30); Chloride 106 mmol/L (98-107); Glucose 105 mg/dL (74-99); Magnesium 1.8 mg/dL (1.6-2.3); Non-African American GFR(CKD) 50 (>60 ml/min/1.73 sqM); Potassium 4.4 mmol/L (3.5-5.1); Sodium 138 mmol/L (137-145); Total Bilirubin 0.5 mg/dL (0.2-1.3); Total Protein 6.8 g/dL (6.3-8.2)
[2024-08-28 11:25] LABS: Partial Thromboplastin Time 22.6 sec (22.0-30.0); Prothrombin Time 10.7 sec (10.0-12.5)
--- NOTE | 2024-08-28 11:42 | XR ---
EXAMINATION TYPE: XR Hip Complete RT DATE OF EXAM: 08/28/2024 11:22 AM COMPARISON: None CLINICAL INDICATION: Male, 84 years old with history of Hip pain; TECHNIQUE: XR Hip Complete RT; Frontal and lateral views FINDINGS/IMPRESSION: 1. Acute right intertrochanteric fracture with avulsion of the lesser trochanter. 2. Moderate degeneration changes of the hip with joint space narrowing and osteophyte formation. 3. Sclerosis of the arterial vasculature. [facility], , 08/28/2024 11:40 AM
--- NOTE | 2024-08-28 12:00 | XR ---
EXAMINATION TYPE: XR chest 1V DATE OF EXAM: 08/28/2024 11:22 AM COMPARISON: None CLINICAL INDICATION: Male, 84 years old with history of Difficulty breathing ; [facility] TECHNIQUE: XR chest 1V Frontal view of the chest. FINDINGS: Lungs/Pleura: There is no evidence of pleural effusion, focal consolidation, or pneumothorax. Pulmonary vascularity: Unremarkable. Heart/mediastinum: Cardiomediastinal silhouette is unremarkable. Musculoskeletal: No acute osseous pathology. Right shoulder arthroplasty hardware is intact. Other findings: None IMPRESSION: No acute cardiopulmonary disease/process. [facility], , 08/28/2024 11:58 AM
[2024-08-28] MEDS: SODIUM CHLORIDE 0.9% 1,000 ML IV ONE (12:57)
[2024-08-28] MEDS: ACETAMINOPHEN IV (For NPO) 1,000 MG in EMPTY BAG 1 BAG IVPB STA (13:04)
[2024-08-28] MEDS: ONDANSETRON 4 MG/2 ML VIAL IVP STA (13:16)
[2024-08-28] MEDS: SODIUM CHLORIDE 0.9% 500 ML 500 ML IV ONE (13:30)
[2024-08-28] MEDS: MORPHINE SULFATE 2 MG/ML SYRINGE IVP STA (14:02)
[2024-08-28] MEDS ORDERED: ACETAMINOPHEN TAB 500 MG TAB PO PRN (14:42)
--- NOTE | 2024-08-28 14:45 | P.CONS ---
History of Present Illness - Reason for Consult Consult date: 08/28/24 - History of Present Illness History of present illness: 84-year-old male patient with past medical history significant for hypertension, parkinsonism, thyroid disorder who presented to ER after a fall and right hip pain. Patient stated that he was out for his morning walk and tripped and landed on his right hip and then had significant right hip pain afterwards. Patient denied any loss of consciousness, admitted to hitting his head but had had on, denied any headache or trauma. Patient denied any weakness or numbness of the extremities. Patient denied any fever chills, shortness of breath, sore throat, chest pain, palpitation, nausea vomiting diarrhea constipation abdominal pain dysuria urgency frequency. In the ED patient was afebrile, heart rate 65, respiratory rate 18, blood pressure 125/88, saturating 95% room air. WBC 5.7, hemoglobin 13.3, platelet 243. INR 1.0. Sodium 138, potassium 4.4, chloride 106, BUN 23, creatinine 1.31. Liver profile unremarkable. EKGs showed sinus rhythm with first degree AV block, left anterior fascicular block. Chest x-ray negative for acute process. X-ray hip showed acute right intertrochanteric fracture with avulsion of lesser trochanter, sclerosis of arterial vasculature. REVIEW OF SYSTEMS: CONSTITUTIONAL: No fever, no malaise, no fatigue. HEENT: No recent visual problems or hearing problems. Denied any sore throat. CARDIOVASCULAR: No chest pain, orthopnea, PND, no palpitations, no syncope. PULMONARY: No shortness of breath, no cough, no hemoptysis. GASTROINTESTINAL: No diarrhea, no nausea, no vomiting, no abdominal pain. NEUROLOGICAL: No headaches, no weakness, no numbness. HEMATOLOGICAL: Denies any bleeding or petechiae. GENITOURINARY: Denies any burning micturition, frequency, or urgency. MUSCULOSKELETAL/RHEUMATOLOGICAL: Complained of right hip pain ENDOCRINE: Denies any polyuria or polydipsia. The rest of the 14-point review of systems is negative. PHYSICAL EXAMINATION: GENERAL: The patient is A&O x3, NAD HEENT: EOMI, Sclerae anicteric, Moist Mucous membranes Neck: Supple, Non tender, No JVD PULMONARY: Equal breath souds B/L, No wheezing, No crackles. CARDIOVASCULAR: S1, S2 present. + murmurs, rubs, or gallops. ABDOMEN: Soft, nontender, nondistended, normoactive bowel sounds. No guarding or rebound tenderness. MUSCULOSKELETAL: No edema, No cyanosis. No clubbing. Normal ROM. Intact peripheral pulses. Right hip lateral tenderness, right lower extremity externally rotated. NEUROLOGICAL: CN 2-12 grossly intact. No FND Assessment and plan: Right hip fracture: Fall: Parkinsonism: History of bradycardia: Presented after a fall, complaint of right hip pain X-ray showed right hip fracture Neurovascular checks Fall precautions-PT/OT consult Further management per orthopedics Pain management, DVT prophylaxis per orthopedics Continue home meds including Sinemet Continue Synthroid Okay to proceed with surgery. DVT prophylaxis Per orthopedics Monitor vital signs and labs Labs and medication were reviewed. Continue same treatment. Further recommendations as per clinical course of the patient Dictation was produced using [employer] dictation software. please excuse any grammatical, word or spelling errors. Past Medical History Past Medical History: CVA/TIA, Eye Disorder, Thyroid Disorder Additional Past Medical History / Comment(s): Cataract, possible parkinsons. Tremors History of Any Multi-Drug Resistant Organisms: None Reported Past Surgical History: Adenoidectomy, Joint Replacement, Tonsillectomy Additional Past Surgical History / Comment(s): Cataract R eye,R shoulder Past Anesthesia/Blood Transfusion Reactions: No Reported Reaction Past Psychological History: No Psychological Hx Reported Smoking Status: Current every day smoker Past Alcohol Use History: None Reported Past Drug Use History: None Reported - Past Family History Mother Family Medical History: No Reported History Medications and Allergies Home Medications Medication Instructions Recorded Confirmed Type Levothyroxine Sodium [Synthroid] 200 mcg PO DAILY 12/08/14 08/28/24 History Cholecalciferol [Vitamin D3 (25 25 mcg PO DAILY 05/11/22 08/28/24 History Mcg = 1000 Iu)] Fenofibrate Nanocrystallized 145 mg PO DAILY 05/11/22 08/28/24 History [Fenofibrate] Ascorbic Acid [Vitamin C] 500 mg PO DAILY 07/20/23 08/28/24 History Carbidopa/Levodopa 1.5 tab PO TID 07/20/23 08/28/24 History [Carbidopa/Levodopa 25-100 Tab] Acetaminophen [Tylenol Extra 500 - 1,000 mg PO Q6H PRN 07/13/24 08/28/24 History Strength] Sertraline [Zoloft] 25 mg PO DAILY 30 Days #30 tab 07/16/24 08/28/24 Rx Sertraline [Zoloft] 100 mg PO DAILY 30 Days #30 tab 07/16/24 08/28/24 Rx Allergies Allergy/AdvReac Type Severity Reaction Status Date / Time codeine Allergy Rash/Hives, Verified 08/28/24 12:25 swelling of face Physical Exam Vitals: Vital Signs Temp Pulse Resp BP Pulse Ox 08/28/24 13:34 98.2 F 54 L 20 136/79 98 08/28/24 10:30 98.7 F 65 18 125/88 95 Intake and Output 08/27/24 08/28/24 08/28/24 22:59 06:59 14:59 Other: Weight 95.254 kg Results CBC & Chem 7: 08/28/24 10:52 08/28/24 10:52 Labs: Abnormal Lab Results - Last 24 Hours (Table) 08/28/24 08/28/24 Range/Units 10:52 10:52 RBC 4.29 L (4.30-5.90) m/uL BUN 23 H (9-20) mg/dL Creatinine 1.31 H (0.66-1.25) mg/dL Glucose 105 H (74-99) mg/dL
[2024-08-28] MEDS: CARBIDOPA-LEVODOPA 25-100 MG 1 EACH TAB PO SCH (15:47)
[2024-08-28] MEDS: MORPHINE SULFATE 2 MG/ML SYRINGE IVP PRN (15:48)
--- NOTE | 2024-08-28 15:53 | P.HPOR ---
History of Present Illness H&P Date: 08/28/24 This is an 84 year-old male who is admitted for right hip fracture. Patient states that he was coming home from his walk and lost his balance in the garage and fell. Patient states that he did hit his head, but denies loss of consciousness. Patient states that he lives at home with his and normally ambulates with a cane. Patient's past medical history is significant for hypertension, parkinson's and a thyroid disorder. Patient denies any fever/chills, chest pain, shortness breath, abdominal pain, numbness, weakness or tingling. Review of Systems See HPI. Past Medical History Past Medical History: CVA/TIA, Eye Disorder, Thyroid Disorder Additional Past Medical History / Comment(s): Cataract, possible parkinsons. Tremors History of Any Multi-Drug Resistant Organisms: None Reported Past Surgical History: Adenoidectomy, Joint Replacement, Tonsillectomy Additional Past Surgical History / Comment(s): Cataract R eye,R shoulder Past Anesthesia/Blood Transfusion Reactions: No Reported Reaction Past Psychological History: No Psychological Hx Reported Smoking Status: Current every day smoker Past Alcohol Use History: None Reported Past Drug Use History: None Reported - Past Family History Mother Family Medical History: No Reported History Medications and Allergies Home Medications Medication Instructions Recorded Confirmed Type Levothyroxine Sodium [Synthroid] 200 mcg PO DAILY 12/08/14 08/28/24 History Cholecalciferol [Vitamin D3 (25 25 mcg PO DAILY 05/11/22 08/28/24 History Mcg = 1000 Iu)] Fenofibrate Nanocrystallized 145 mg PO DAILY 05/11/22 08/28/24 History [Fenofibrate] Ascorbic Acid [Vitamin C] 500 mg PO DAILY 07/20/23 08/28/24 History Carbidopa/Levodopa 1.5 tab PO TID 07/20/23 08/28/24 History [Carbidopa/Levodopa 25-100 Tab] Acetaminophen [Tylenol Extra 500 - 1,000 mg PO Q6H PRN 07/13/24 08/28/24 History Strength] Sertraline [Zoloft] 25 mg PO DAILY 30 Days #30 tab 07/16/24 08/28/24 Rx Sertraline [Zoloft] 100 mg PO DAILY 30 Days #30 tab 10/03/24 11/15/24 Rx Allergies Allergy/AdvReac Type Severity Reaction Status Date / Time codeine Allergy Rash/Hives, Verified 08/28/24 12:25 swelling of face Physical Examination On exam patient is resting comfortably in bed in no acute distress. Patient is alert and oriented 3. Right lower extremity: Skin is intact. There is mild soft tissue swelling. Shortened and externally rotated. Calf is soft and nontender to palpation. Patient has full motion of the right foot and ankle. Sensation intact. Neurovascular status and circulatory status are intact. Exams of the left lower extremity and bilateral upper extremities are within normal limits. Head is normocephalic and atraumatic. Results An x-ray report of the right hip dated 08/28/2024 reveals: 1. Acute right intertrochanteric fracture with avulsion of the lesser trochanter. 2. Moderate degeneration changes of the hip with joint space narrowing and osteophyte formation. 3. Sclerosis of the arterial vasculature. - Labs Labs: Abnormal Lab Results - Last 24 Hours (Table) 08/28/24 08/28/24 Range/Units 10:52 10:52 RBC 4.29 L (4.30-5.90) m/uL BUN 23 H (9-20) mg/dL Creatinine 1.31 H (0.66-1.25) mg/dL Glucose 105 H (74-99) mg/dL H & H 08/28/24 Range/Units 10:52 Hgb 13.3 (13.0-17.5) gm/dL Hct 40.1 (39.0-53.0) % Coagulation 08/28/24 Range/Units 10:52 INR 1.0 (<1.2) Result Diagrams: 08/28/24 10:52 08/28/24 10:52 Assessment and Plan (1) Fall Current Visit: Yes Status: Acute Code(s): W19.XXXA - UNSPECIFIED FALL, INITIAL ENCOUNTER SNOMED Code(s): 2016887 (2) Intertrochanteric fracture of right hip Current Visit: Yes Status: Acute Code(s): S72.141A - DISPLACED INTERTROCHANTERIC FRACTURE OF RIGHT FEMUR, INIT SNOMED Code(s): 808035269 Plan: 1. N.p.o. after midnight 2. Continue bedrest and pain control. 3. Appreciate input from internal medicine. 4. Planning for closed reduction and IM nailing of the right hip on 08/29/2024 pending medical clearance and patient consent.
[2024-08-28] MEDS: CHOLECALCIFEROL 25 MCG (1000 IU) TABLET PO SCH (16:00)
[2024-08-29] MEDS: LEVOTHYROXINE 100 MCG TAB PO SCH (06:29)
[2024-08-29 06:42] LABS: Appearance,Urine Clear (Clear); Bilirubin,Urine Negative (Negative); Blood,Urine Negative (Negative); Color,Urine Yellow; Glucose,Urine (UA) Negative (Negative); Ketones,Urine Negative (Negative); Leukocyte Esterase,Urine Negative (Negative); Nitrite,Urine Negative (Negative); PH, Urine 5.5 (5.0-8.0); Protein,Urine Negative (Negative); Specific Gravity,Urine 1.024 (1.001-1.035); Urobilinogen,Urine <2.0 mg/dL (<2.0)
[2024-08-29] MEDS ORDERED: PHENYLEPHRINE 10 MG/ML VIAL ONE (07:52)
[2024-08-29] MEDS ORDERED: MIDAZOLAM 2 MG/2 ML VIAL ONE (07:52)
[2024-08-29] MEDS ORDERED: KETAMINE HCL IN 0.9 % NACL 50 MG/5 ML SYRINGE ONE (07:52)
[2024-08-29] MEDS ORDERED: PROPOFOL 10 MG/ML 20 ML VIAL IV ONE (07:52)
[2024-08-29] MEDS ORDERED: TRANEXAMIC 1,000 MG/100ML-NACL PREMIX BAG ONE (07:52)
[2024-08-29] MEDS: LACTATED RINGERS 1,000 ML IV ONE (08:01)
[2024-08-29] MEDS: SERTRALINE 25 MG TAB PO SCH (08:02)
[2024-08-29] MEDS: FENOFIBRATE 160 MG TAB PO SCH (08:02)
[2024-08-29] MEDS: ASCORBIC ACID 500 MG TAB PO SCH (08:02)
[2024-08-29] MEDS: SODIUM CHLORIDE 0.9% 100 ML with ceFAZolin 2,000 MG IV ONE (08:23)
[2024-08-29] MEDS: ceFAZolin 1,000 MG in SODIUM CHLORIDE 0.9% 1,000 ML IRRIGATION ONE (08:36)
--- NOTE | 2024-08-29 09:06 | P.OP ---
Date of Procedure: 08/29/24 Preoperative Diagnosis: Intertrochanteric fracture right hip Postoperative Diagnosis: Intertrochanteric fracture right hip Procedure(s) Performed: Closed reduction and intramedullary nailing right hip Implants: [employer] Intertan nail 125, 11.5 mm x 18 cm. [employer] Intertan integrated-interlocking lag screw, 110 mm lag screw, 105 mm compression screw. [employer] L-P screw, 5.0 mm x 35 mm. Anesthesia: spinal Surgeon: Oscar Keys Estimated Blood Loss (ml): 100 Pathology: none sent Condition: stable Disposition: PACU Indications for Procedure: This is an 84-year-old gentleman that sustained a ground-level fall yesterday. X-rays demonstrated intratrochanteric fracture of his right hip. After discussing the surgical nonsurgical treatment options with him at length, I recommended a close reduction and intramedullary nailing of the right hip. Informed consent was obtained. Operative Findings: The operative findings are consistent with a intertrochanteric fracture of the right hip Description of Procedure: The patient was seen in the preoperative area, consent was reviewed, and the operative site was marked with a skin marker. The surgical procedure was discussed at length with both the patient and the family at the bedside. All questions were answered to the best of my ability. The patient was brought to the operating room and placed on the fracture table. Anesthesia was administered by the anesthesia department. 2 g of Ancef were administered intravenously. The patient was placed supine on the fracture table with the fractured extremity in traction boot. The other extremity was placed in a well leg torres and the bony prominences were well padded. A universal timeout was then performed which confirmed the patient's name, surgical site, ALLERGIES, and consent. Fracture reduction was performed with a traction and abduction maneuver which was confirmed with fluoroscopy, both AP and lateral views.. After reduction was performed, the extremity was then prepped with ChloraPrep solution and draped in the usual sterile fashion. Utilizing fluoroscopy to identify the tip of the greater trochanter, a 3 cm longitudinal incision was made just proximal to the greater trochanter. Incision was carried through the fascia to the tip of the greater trochanter. Utilizing a curved awl, the entry point was created at the tip of the greater trochanter and centralized in the AP and lateral planes. These locations were confirmed by fluoroscopy. A guidewire was then inserted down the medullary canal. Sequentially reaming of the femur was performed to 13 mm distally and 17 mm proximally with the channel reamer. After reaming, appropriate size nail was inserted over the guidewire. The nail was inserted to the appropriate depth and the guidewire was removed. Placement of the micaela was confirmed with both AP and lateral fluoroscopic views. The lag screw drill sleeve was placed in the jig and a small skin incision was made on the lateral aspect of the leg and the lag screw drill sleeve was locked into the guide. The 3.2 mm guide pin sleeve was inserted through the lag screw drill sleeve down to bone. A 3.2 mm distally threaded guidewire was inserted through the guide pin sleeve. The guidewire was inserted in the desired position in the femoral head, both anterior and posterior. The lag screw length cage was inserted over the guidepin to the back of the lag screw drill sleeve. Lag screw length was then measured from the cage. Next, the 7.0 mm compression screw starter drill was inserted in the lag screw drill sleeve beneath the guidepin. The compression screw starter drill was advanced under power until it abutted the back and of the lag screw drill sleeve. The 7.0 mm compression screw drill was inserted through the lag screw drill sleeve into the hole created by the compression screw starter drill. This was advanced under fluoroscopy to a depth 5 mm less and the measurement taken for the guidepin. The compression screw drill was removed and the antirotation bar was inserted into the same hole. The 3.2 mm guide pin sleeve was then removed from the drill guide. The lag screw drill was then inserted to a depth that was measured by the lag screw gauge. This was done under fluoroscopy. The lag screw was inserted over the guidewire to the appropriate depth using fl uoroscopy. Traction was then released. The antirotation bar was then removed and the compression screw was advanced through the lag screw drill sleeve beneath the lag screw. This was advanced to the appropriate compression was achieved. The proximal drill guide was then removed and the distal drill guide was then inserted in the jig. Skin incision was made down to bone and the distal drill guide was then placed. Distal hole was then drilled with a 4.0 mm drill and measured to the appropriate depth. Distal screw was then placed. The entire assembly was then removed and final fluoroscopic x-rays were obtained. The wounds were then irrigated copiously with saline solution. Fascia was closed with 0-Vicryl. Subcutaneous tissues were closed with 2-0 Vicryl and the skin was closed with simin. Sterile dressings were applied. The patient was transported to the recovery room in stable condition. The funeral home assistant RANDI Chávez was required due the complexity of surgery the need for skilled surgical specialist for positioning draping retraction and fracture reduction.
[2024-08-29] MEDS ORDERED: ONDANSETRON 4 MG/2 ML VIAL IVP PRN (09:26)
[2024-08-29] MEDS ORDERED: NALOXONE 0.4 MG/ML 1 ML VIAL IV PRN ×2 (09:26→09:28)
[2024-08-29] MEDS ORDERED: HYDROmorphone 0.5 MG/0.5 ML SYRINGE IVP PRN ×2 (09:28)
[2024-08-29] MEDS ORDERED: MAGNESIUM HYDROXIDE 2,400 MG/30 ML CUP PO PRN (09:28)
[2024-08-29 09:41] LABS: Basophils # (A) 0.04 X 10*3/uL (0.00-0.10); Basophils % (A) 0.4 %; Eosinophils # (A) 0.12 X 10*3/uL (0.04-0.35); Eosinophils % (A) 1.3 %; HCT 35.7 % (39.6-50.0); HGB 11.5 g/dL (13.0-17.0); Lymphocytes # (A) 1.88 X 10*3/uL (0.90-5.00); Lymphocytes % (A) 20.4 %; MCH 31.4 pg (27.0-32.0); MCHC 32.2 g/dL (32.0-37.0); MCV 97.5 FL (80.0-97.0); Mean Platelet Volume 11.1 FL (9.5-12.2); Monocytes # (A) 0.93 X 10*3/uL (0.20-1.00); Monocytes % (A) 10.1 %; NRBC Per 100 WBC 0 X 10*3/uL (0.00-0.01); Neutrophils % (A) 67.4 %; Platelet Count 220 X 10*3/uL (140-440); RBC 3.66 X 10*6/uL (4.40-5.60); RDW 12.9 % (11.5-14.5); WBC 9.21 X 10*3/uL (4.50-10.00)
[2024-08-29 09:48] LABS: BUN/Creat Ratio 17.83 Ratio (12.00-20.00); Blood Urea Nitrogen 21.4 mg/dL (9.0-27.0); Calcium 8.4 mg/dL (8.7-10.3); Chloride 105 mmol/L (96-109); Glucose 102 mg/dL (70-110); Potassium 4.6 mmol/L (3.5-5.5); Sodium 137 mmol/L (135-145)
--- NOTE | 2024-08-29 11:03 | XR ---
EXAMINATION TYPE: XR Hip Limited RT DATE OF EXAM: 08/29/2024 10:40 AM COMPARISON: None. CLINICAL INDICATION: Male, 84 years old with history of Status post hip surgery, assess surgical matt lamb, TECHNIQUE: AP view(s) obtained. FINDINGS: Right hip pin has been placed through the intertrochanteric fracture. No new fractures evident. Femor al head articulates with the acetabulum. Vascular calcifications present. Other may be some mild thickening or elevation of the mid diaphyseal cortex of the femur. Follow-up e xam can be performed when clinically stable. IMPRESSION: 1. No new fractures post right hip and leg 2. There may be some elevation of the diaphyseal femoral cortex partially visualized. Right femur whe n patient stable [facility], , 08/29/2024 11:00 AM
--- NOTE | 2024-08-29 11:12 | FL ---
Fluoroscopy INDICATION: Pain FINDINGS: Fluoroscopy time: 42 seconds. Total dose area product (DAP) in uGy*m?, mGy*cm? (or similar): 2.0996 Images obtained: 0. IMPRESSION: 1. Documentation of fluoroscopy. [facility], , 08/29/2024 11:10 AM
--- NOTE | 2024-08-29 11:13 | XR ---
Fluoroscopy INDICATION: Pain FINDINGS: Fluoroscopy time: 42 seconds. Total dose area product (DAP) in uGy*m?, mGy*cm? (or similar): 2.0996 Images obtained: 3. There is placement of a right hip pin IMPRESSION: 1. Documentation of fluoroscopy. [facility], , 08/29/2024 11:11 AM
--- NOTE | 2024-08-29 11:29 | P.PN ---
Subjective 84-year-old male patient with past medical history significant for hypertension, parkinsonism, thyroid disorder who presented to ER after a fall and right hip pain. Patient stated that he was out for his morning walk and tripped and landed on his right hip and then had significant right hip pain afterwards. Patient denied any loss of consciousness, admitted to hitting his head but had had on, denied any headache or trauma. Patient denied any weakness or numbness of the extremities. Patient denied any fever chills, shortness of breath, sore throat, chest pain, palpitation, nausea vomiting diarrhea constipation abdominal pain dysuria urgency frequency. In the ED patient was afebrile, heart rate 65, respiratory rate 18, blood pressure 125/88, saturating 95% room air. WBC 5.7, hemoglobin 13.3, platelet 243. INR 1.0. Sodium 138, potassium 4.4, chloride 106, BUN 23, creatinine 1.31. Liver profile unremarkable. EKGs showed sinus rhythm with first degree AV block, left anterior fascicular block. Chest x-ray negative for acute process. X-ray hip showed acute right intertrochanteric fracture with avulsion of lesser trochanter, sclerosis of arterial vasculature. [id number] S/p Closed reduction and intramedullary nailing right hip. Today's postop day #0 No pain No chest pain or dyspnea No other new complaints Lees catheter in place Urine analysis negative Bladder scan requested He is currently getting IV fluid at 50 mL/h Sister at bedside and requesting to check for hemoglobin A1c which is ordered Review of systems:. GASTROINTESTINAL: No diarrhea, no nausea, no vomiting, no abdominal pain. Normoactive bowel sounds. NEUROLOGICAL: No headaches, no weakness, no numbness. HEMATOLOGICAL: Denies any bleeding or petechiae. GENITOURINARY: Denies any burning micturition, frequency, or urgency. MUSCULOSKELETAL/RHEUMATOLOGICAL: Denies any joint pain, swelling, or any muscle pain. ENDOCRINE: Denies any polyuria or polydipsia. Active Medications Generic Name Dose Route Start Last Admin Trade Name Freq PRN Reason Stop Dose Admin Acetaminophen 500 mg 08/28/24 14:42 Acetaminophen Tab 500 Mg Tab PO Q6HR PRN Fever and/ or Pain Hydrocodone Bitart/Acetaminophen 1 each 08/29/24 09:30 Hydrocodone/Apap 7.5-325mg 1 Each Tab PO Q6H PRN Pain Scale 1 to 5 Hydrocodone Bitart/Acetaminophen 2 each 08/29/24 09:30 Hydrocodone/Apap 7.5-325mg 1 Each Tab PO Q6H PRN Pain Scale 6 to 10 Apixaban 2.5 mg 08/30/24 09:00 Apixaban 2.5 Mg Tablet PO BID [facility] Protocol Ascorbic Acid 500 mg 08/29/24 09:00 08/29/24 08:02 Ascorbic Acid 500 Mg Tab PO Not Given DAILY [facility] Carbidopa/Levodopa 1.5 each 08/28/24 16:00 08/29/24 08:02 Carbidopa-Levodopa 25-100 Mg 1 Each Tab PO Not Given TID [facility] Cholecalciferol 25 mcg 08/28/24 15:00 08/29/24 08:02 Cholecalciferol 25 Mcg (1000 Iu) Tablet PO Not Given DAILY [facility] Famotidine 10 mg 08/29/24 21:00 Famotidine 20 Mg/2 Ml Vial IV Q12HR [facility] Fenofibrate 160 mg 08/29/24 09:00 08/29/24 08:02 Fenofibrate 160 Mg Tab PO Not Given DAILY [facility] Hydromorphone HCl 0.125 mg 08/29/24 09:28 Hydromorphone 0.5 Mg/0.5 Ml Syringe IVP Q3HR PRN Pain Scale 1 to 3 Hydromorphone HCl 0.5 mg 08/29/24 09:28 Hydromorphone 0.5 Mg/0.5 Ml Syringe IVP Q3HR PRN Pain Scale 7 to 10 Hydromorphone HCl 0.25 mg 08/29/24 09:28 Hydromorphone 0.5 Mg/0.5 Ml Syringe IVP Q3HR PRN Pain Scale 4 to 6 Sodium Chloride 1,000 mls @ 70 mls/hr 08/29/24 09:30 Saline 0.9% IV .[id number] [facility] Cefazolin Sodium 2 gm/ Sodium 50 mls @ 100 mls/hr 08/29/24 16:00 Chloride IVPB 08/30/24 00:29 Q8HR [facility] Protocol Levothyroxine Sodium 200 mcg 08/29/24 06:30 08/29/24 06:29 Levothyroxine 100 Mcg Tab PO 200 mcg DAILY@0630 [facility] Administration Magnesium Hydroxide 2,400 mg 08/29/24 09:28 Magnesium Hydroxide 2,400 Mg/30 Ml Cup PO DAILY PRN Constipation Morphine Sulfate 2 mg 08/28/24 14:43 08/29/24 04:27 Morphine Sulfate 2 Mg/Ml Syringe IVP 2 mg Q4HR PRN Administration Pain Scale 7 to 10 Naloxone HCl 0.2 mg 08/29/24 09:26 Naloxone 0.4 Mg/Ml 1 Ml Vial IV Q2M PRN Opioid Reversal Naloxone HCl 0.2 mg 08/29/24 09:28 Naloxone 0.4 Mg/Ml 1 Ml Vial IV Q2M PRN Opioid Reversal Ondansetron HCl 4 mg 08/29/24 09:26 Ondansetron 4 Mg/2 Ml Vial IVP Q8H PRN Nausea And Vomiting Senna/Docusate Sodium 2 each 08/29/24 21:00 Sennosides-Docusate Sodium 1 Each Tab PO HS [facility] Sertraline HCl 25 mg 08/29/24 09:00 08/29/24 08:02 Sertraline 25 Mg Tab PO Not Given DAILY [facility] Objective - Vital Signs Vital signs: Vital Signs Temp 97.6 F 08/29/24 10:06 Pulse 50 L 08/29/24 10:06 Resp 16 08/29/24 10:06 BP 105/64 08/29/24 10:06 Pulse Ox 100 08/29/24 10:06 FiO2 Intake & Output 08/28/24 08/29/24 08/29/24 18:59 06:59 18:59 Intake Total 401 Output Total 350 300 Balance -350 101 Weight 95.254 kg Intake: IV 401 Output: Urine 350 200 Estimated Blood Loss 100 Other: Voiding Method Urinal Urinal Indwelling Catheter - Exam GENERAL: The patient is alert and oriented x3, not in any acute distress. Well developed, well nourished. HEENT: Pupils are round and equally reacting to light. EOMI. No scleral icterus. No conjunctival pallor. Normocephalic, atraumatic. No pharyngeal erythema. No thyromegaly. CARDIOVASCULAR: S1 and S2 present. No murmurs, rubs, or gallops. PULMONARY: Chest is clear to auscultation, no wheezing , no crackles. ABDOMEN: Soft, nontender, nondistended, normoactive bowel sounds. No palpable organomegaly. -MUSCULOSKELETAL: No joint swelling or deformity. Right hip surgical wound with dressing in place EXTREMITIES: No cyanosis, clubbing, or pedal edema. NEUROLOGICAL: Gross neurological examination did not reveal any focal deficits. SKIN: No rashes. no petechiae. - Labs CBC & Chem 7: 08/29/24 05:29 08/29/24 05:29 Labs: Abnormal Lab Results - Last 24 Hours (Table) 08/29/24 08/29/24 Range/Units 05:29 05:29 RBC 3.66 L (4.40-5.60) X 10*6/uL Hgb 11.5 L (13.0-17.0) g/dL Hct 35.7 L (39.6-50.0) % MCV 97.5 H (80.0-97.0) FL Est GFR (CKD-EPI) 59 L (>=60) Calcium 8.4 L (8.7-10.3) mg/dL Assessment and Plan Assessment: Assessment: Right hip fracture Fall Parkinsonism: History of bradycardia: Presented after a fall, complaint of right hip pain X-ray showed right hip fracture Neurovascular checks Fall precautions-PT/OT consult Further management per orthopedics Pain management, DVT prophylaxis per orthopedics Continue home meds including Sinemet Continue Synthroid Okay to proceed with surgery. DVT prophylaxis: Patient already started on Eliquis 2.5 mg Per orthopedics: Patient on Pepcid Plan: plan: Continue with pain management per surgery team Surgery team/orthopedic team following closely Monitor creatinine which is improving slowly Monitor for next more incidence of fever Continue stool softeners Check a bladder scan Monitor hemoglobin Labs and medication were reviewed.. Continue same treatment. Continue with symptomatic treatment. Resume home medication. Monitor labs and vitals. DVT and GI prophylaxis. Further recommendations as per clinical course of the patient DVT prophylaxis: patient started on Eliquis GI prophylaxis: Pepcid PT/OT: Pending
[2024-08-29] MEDS: HYDROcodone/APAP 7.5-325MG 1 EACH TAB PO PRN ×2 (12:06→21:10)
[2024-08-29] MEDS: SODIUM CHLORIDE 0.9% 1,000 ML IV SCH (17:08)
[2024-08-29] MEDS: SENNOSIDES-DOCUSATE SODIUM 1 EACH TAB PO SCH (21:10)
[2024-08-29] MEDS: FAMOTIDINE 20 MG/2 ML VIAL IV SCH (21:11)
[2024-08-30 08:23] VITALS: RESP 18
[2024-08-30] MEDS: APIXABAN 2.5 MG TABLET PO SCH (08:40)
[2024-08-30 09:55] LABS: BUN/Creat Ratio 17.62 Ratio (12.00-20.00); Blood Urea Nitrogen 22.9 mg/dL (9.0-27.0); Calcium 8.2 mg/dL (8.7-10.3); Chloride 105 mmol/L (96-109); Glucose 116 mg/dL (70-110); Potassium 4.4 mmol/L (3.5-5.5); Sodium 136 mmol/L (135-145)
[2024-08-30 09:57] LABS: Basophils # (A) 0.05 X 10*3/uL (0.00-0.10); Basophils % (A) 0.5 %; Eosinophils # (A) 0.14 X 10*3/uL (0.04-0.35); Eosinophils % (A) 1.4 %; HCT 31.2 % (39.6-50.0); HGB 10.4 g/dL (13.0-17.0); Lymphocytes # (A) 2.08 X 10*3/uL (0.90-5.00); Lymphocytes % (A) 20.9 %; MCH 32.5 pg (27.0-32.0); MCHC 33.3 g/dL (32.0-37.0); MCV 97.5 FL (80.0-97.0); Mean Platelet Volume 10.9 FL (9.5-12.2); Monocytes # (A) 1.19 X 10*3/uL (0.20-1.00); Monocytes % (A) 11.9 %; NRBC Per 100 WBC 0 X 10*3/uL (0.00-0.01); Neutrophils # (A) 6.46 X 10*3/uL (1.80-7.70); Neutrophils % (A) 64.9 %; Platelet Count 174 X 10*3/uL (140-440); RDW 12.7 % (11.5-14.5); WBC 9.96 X 10*3/uL (4.50-10.00)
--- NOTE | 2024-08-30 10:22 | P.PN ---
Subjective Progress Note Date: 08/30/24 This is an 84-year-old male who is status post closed reduction and intramedullary nailing of the right hip. This is postoperative day #1 and patient is seen and evaluated at bedside today. Patient states that his pain is well-controlled and he denies any new complaints today. Objective - Vital Signs Vital signs: Vital Signs Temp 97.9 F 08/30/24 06:57 Pulse 63 08/30/24 06:57 Resp 18 08/30/24 06:57 BP 109/68 08/30/24 06:57 Pulse Ox 94 L 08/30/24 06:57 FiO2 Intake & Output 08/29/24 08/30/24 08/30/24 18:59 06:59 18:59 Intake Total 401 Output Total 550 250 Balance -149 -250 Intake: IV 401 Output: Urine 450 250 Uretheral (Lees) 250 Estimated Blood Loss 100 Other: Voiding Method Indwelling Catheter Indwelling Catheter - Exam Vital signs are stable. Patient is in no acute distress and is alert and oriented 3. Calf is soft and nontender to palpation. Dressings are clean, dry, and intact. Patient has full foot and ankle motion without pain or difficulty. Sensation intact. Neurovascular status and circulatory status are intact. - Labs CBC & Chem 7: 08/30/24 04:09 08/30/24 04:09 Labs: Abnormal Lab Results - Last 24 Hours (Table) 08/30/24 08/30/24 Range/Units 04:09 04:09 RBC 3.20 L (4.40-5.60) X 10*6/uL Hgb 10.4 L (13.0-17.0) g/dL Hct 31.2 L (39.6-50.0) % MCV 97.5 H (80.0-97.0) FL MCH 32.5 H (27.0-32.0) pg Monocytes # 1.19 H (0.20-1.00) X 10*3/uL Est GFR (CKD-EPI) 54 L (>=60) Glucose 116 H (70-110) mg/dL Calcium 8.2 L (8.7-10.3) mg/dL Assessment and Plan Assessment: Status post closed reduction and intramedullary nailing of the right hip. (1) Fall Current Visit: Yes Status: Acute Code(s): W19.XXXA - UNSPECIFIED FALL, INITIAL ENCOUNTER SNOMED Code(s): 2292625 (2) Intertrochanteric fracture of right hip Current Visit: Yes Status: Acute Code(s): S72.141A - DISPLACED I NTERTROCHANTERIC FRACTURE OF RIGHT FEMUR, INIT SNOMED Code(s): 895902082 Plan: Continue routine postop care and pain control. Continue anticoagulation with Eliquis. Toe-touch weightbearing to the right lower extremity with a walker. Leave dressings in place for 7 days. Appreciate input from internal medicine. Anticipate discharge to ECF in the next 24-48 hours.
--- NOTE | 2024-08-30 12:11 | P.PN ---
Subjective 84-year-old male patient with past medical history significant for hypertension, parkinsonism, thyroid disorder who presented to ER after a fall and right hip pain. Patient stated that he was out for his morning walk and tripped and landed on his right hip and then had significant right hip pain afterwards. Patient denied any loss of consciousness, admitted to hitting his head but had had on, denied any headache or trauma. Patient denied any weakness or numbness of the extremities. Patient denied any fever chills, shortness of breath, sore throat, chest pain, palpitation, nausea vomiting diarrhea constipation abdominal pain dysuria urgency frequency. In the ED patient was afebrile, heart rate 65, respiratory rate 18, blood pressure 125/88, saturating 95% room air. WBC 5.7, hemoglobin 13.3, platelet 243. INR 1.0. Sodium 138, potassium 4.4, chloride 106, BUN 23, creatinine 1.31. Liver profile unremarkable. EKGs showed sinus rhythm with first degree AV block, left anterior fascicular block. Chest x-ray negative for acute process. X-ray hip showed acute right intertrochanteric fracture with avulsion of lesser trochanter, sclerosis of arterial vasculature. 08/29 S/p Closed reduction and intramedullary nailing right hip. Today's postop day #0 No pain No chest pain or dyspnea No other new complaints Lees catheter in place Urine analysis negative Bladder scan requested He is currently getting IV fluid at 50 mL/h Sister at bedside and requesting to check for hemoglobin A1c which is ordered 08/30 Contrite hip pain is controlled. Today postop day #1 No other new complaint Patient has significant memory problems and asked us to talk to his . He is hemodynamically stable. Afebrile. Creatinine stable at 1.3. WBC slightly up at 9.9K. Hemoglobin is within the reference range at 10.4. He was currently placed back on his Eliquis 2.5 mg twice daily Objective - Vital Signs Vital signs: Vital Signs Temp 97.9 F 08/30/24 06:57 Pulse 63 08/30/24 06:57 Resp 18 08/30/24 06:57 BP 109/68 08/30/24 06:57 Pulse Ox 94 L 08/30/24 06:57 FiO2 Intake & Output 08/29/24 08/30/24 08/30/24 18:59 06:59 18:59 Intake Total 401 Output Total 550 250 Balance -149 -250 Intake: IV 401 Output: Urine 450 250 Uretheral (Lees) 250 Estimated Blood Loss 100 Other: Voiding Method Indwelling Catheter Indwelling Catheter - Exam GENERAL: The patient is alert and oriented x3, not in any acute distress. Well developed, well nourished. HEENT: Pupils are round and equally reacting to light. EOMI. No scleral icterus. No conjunctival pallor. Normocephalic, atraumatic. No pharyngeal erythema. No thyromegaly. CARDIOVASCULAR: S1 and S2 present. No murmurs, rubs, or gallops. PULMONARY: Chest is clear to auscultation, no wheezing , no crackles. ABDOMEN: Soft, nontender, nondistended, normoactive bowel sounds. No palpable organomegaly. -MUSCULOSKELETAL: No joint swelling or deformity. Right hip surgical wound with dressing in place EXTREMITIES: No cyanosis, clubbing, or pedal edema. NEUROLOGICAL: Gross neurological examination did not reveal any focal deficits. SKIN: No rashes. no petechiae. - Labs CBC & Chem 7: 08/30/24 04:09 08/30/24 04:09 Labs: Abnormal Lab Results - Last 24 Hours (Table) 08/30/24 08/30/24 Range/Units 04:09 04:09 RBC 3.20 L (4.40-5.60) X 10*6/uL Hgb 10.4 L (13.0-17.0) g/dL Hct 31.2 L (39.6-50.0) % MCV 97.5 H (80.0-97.0) FL MCH 32.5 H (27.0-32.0) pg Monocytes # 1.19 H (0.20-1.00) X 10*3/uL Est GFR (CKD-EPI) 54 L (>=60) Glucose 116 H (70-110) mg/dL Calcium 8.2 L (8.7-10.3) mg/dL Assessment and Plan Assessment: Assessment: Right hip fracture, Closed reduction and intramedullary nailing right hip Fall Parkinsonism: History of bradycardia: Presented after a fall, complaint of right hip pain X-ray showed right hip fracture Neurovascular checks Fall precautions-PT/OT consult Further management per orthopedics Pain management, DVT prophylaxis per orthopedics Continue home meds including Sinemet Continue Synthroid Okay to proceed with surgery. DVT prophylaxis: Patient already started on Eliquis 2.5 mg Per orthopedics: Patient on Pepcid Plan: plan: Continue with pain management per surgery team Surgery team/orthopedic team following closely Monitor creatinine which is improving slowly Monitor for next more incidence of fever Continue stool softeners Check a bladder scan Monitor hemoglobin Labs and medication were reviewed.. Continue same treatment. Continue with symptomatic treatment. Resume home medication. Monitor labs and vitals. DVT and GI prophylaxis. Further recommendations as per clinical course of the patient DVT prophylaxis: patient started on Eliquis GI prophylaxis: Pepcid PT/OT: Pending
[2024-08-30] MEDS: HYDROmorphone 0.5 MG/0.5 ML SYRINGE IVP PRN (13:22)
[2024-08-31 07:49] VITALS: BP 109/66; PULSE 66; TEMP 98.2
--- NOTE | 2024-08-31 11:55 | P.PN ---
Subjective Progress Note Date: 08/31/24 This is an 84-year-old male who is status post closed reduction and intramedullary nailing of the right hip. This is postoperative day #2 and patient is seen and evaluated at bedside today. Patient states that his pain is well-controlled and he denies any new complaints today. Objective - Vital Signs Vital signs: Vital Signs Temp 98.2 F 08/31/24 07:49 Pulse 66 08/31/24 07:49 Resp 18 08/31/24 07:49 BP 109/66 08/31/24 07:49 Pulse Ox 96 08/31/24 07:49 FiO2 Intake & Output 08/30/24 08/31/24 08/31/24 18:59 06:59 18:59 Output Total 550 600 Balance -550 -600 Output: Urine 550 600 Uretheral (Lees) 600 Other: Voiding Method Indwelling Catheter Indwelling Catheter - Exam Vital signs are stable. Patient is in no acute distress and is alert and oriented 3. Calf is soft and nontender to palpation. Dressings are clean, dry, and intact. Patient has full foot and ankle motion without pain or difficulty. Sensation intact. Neurovascular status and circulatory status are intact. - Labs CBC & Chem 7: 08/30/24 04:09 08/30/24 04:09 Assessment and Plan Assessment: Status post closed reduction and intramedullary nailing of the right hip. (1) Fall Current Visit: Yes Status: Acute Code(s): W19.XXXA - UNSPECIFIED FALL, INITIAL ENCOUNTER SNOMED Code(s): 4120747 (2) Intertrochanteric fracture of right hip Current Visit: Yes Status: Acute Code(s): S72.141A - DISPLACED INTERTROCHANTERIC FRACTURE OF RIGHT FEMUR, INIT SNOMED Code(s): 561571236 Plan: Continue routine postop care and pain control. Continue anticoagulation with Eliquis. Toe-touch weightbearing to the right lower extremity with a walker. Leave dressings in place for 7 days. Appreciate input from internal medicine. Anticipate discharge to [facility] in the next 24-48 hours.
--- NOTE | 2024-08-31 15:06 | P.DS ---
Providers Date of admission: 08/28/24 12:37 Expected date of discharge: 08/31/24 Attending physician: Oscar Keys Consults: 08/28/24 12:37 Consult Physician Urgent Consulting Provider: Elham Slaughter Consult Reason/Comments: Medical clearance for surgery Do you want consulting provider notified?: Yes Primary care physician: Alvaro Grant - Discharge Diagnosis(es) (1) Fall Current Visit: Yes Status: Acute (2) Intertrochanteric fracture of right hip Current Visit: Yes Status: Acute Hospital Course: This is an 84-year-old male who sustained a fracture of the right hip after a fall at home on 08/29/2024. X-rays in the emergency room revealed an intertrochanteric fracture of the right hip. After discussion and consideration patient consents to proceed with closed reduction and intramedullary nailing of the right hip by internal medicine. The patient is seen preoperatively by Dr. Keys and cleared for surgery. Patient is admitted to [facility] on 08/28/2024 and closed reduction and intramedullary nailing of the right hip is performed on 08/29/2024. The procedure is performed without complication or sequelae. The patient is doing well postoperatively. Labs and vital signs are stable on day of discharge. On day of discharge patient's hip incisions are healing well. There is minimal erythema. There is no drainage noted at this time. There is minimal soft tissue swelling to the hip and thigh. Patient has full foot and ankle motion without difficulty or pain. Neurovascular status to the right lower extremity is intact. Patient is discharged to rehab in good condition. Please see med rec for accurate list of home medications. Plan - Discharge Summary Discharge Rx Participant: Yes New Discharge Prescriptions: New Apixaban [Eliquis] 2.5 mg PO BID 30 Days #60 tab Magnesium Hydroxide [Milk of Magnesia] 2,400 mg PO DAILY PRN ml PRN Reason: Constipation HYDROcodone/APAP 7.5-325MG [[place] 7.5-325] 1 - 2 tab PO Q6H PRN #32 tab PRN Reason: Pain Sennosides [Senokot] 2 tab PO DAILY PRN #60 tablet PRN Reason: Constipation Continue Levothyroxine Sodium [Synthroid] 200 mcg PO DAILY Cholecalciferol [Vitamin D3 (25 Mcg = 1000 Iu)] 25 mcg PO DAILY Carbidopa/Levodopa [Carbidopa/Levodopa 25-100 Tab] 1.5 tab PO TID Sertraline [Zoloft] 100 mg PO DAILY 30 Days #30 tab Sertraline [Zoloft] 25 mg PO DAILY 30 Days #30 tab Fenofibrate Nanocrystallized [Fenofibrate] 145 mg PO DAILY Ascorbic Acid [Vitamin C] 500 mg PO DAILY Acetaminophen [Tylenol Extra Strength] 500 - 1,000 mg PO Q6H PRN PRN Reason: Fever And/ Or Pain Discharge Medication List Levothyroxine Sodium [Synthroid] 200 mcg PO DAILY 12/08/14 [History] Cholecalciferol [Vitamin D3 (25 Mcg = 1000 Iu)] 25 mcg PO DAILY 05/11/22 [History] Fenofibrate Nanocrystallized [Fenofibrate] 145 mg PO DAILY 05/11/22 [History] Ascorbic Acid [Vitamin C] 500 mg PO DAILY 07/20/23 [History] Carbidopa/Levodopa [Carbidopa/Levodopa 25-100 Tab] 1.5 tab PO TID 07/20/23 [History] Acetaminophen [Tylenol Extra Strength] 500 - 1,000 mg PO Q6H PRN 07/13/24 [History] Sertraline [Zoloft] 25 mg PO DAILY 30 Days #30 tab 07/16/24 [Rx] Sertraline [Zoloft] 100 mg PO DAILY 30 Days #30 tab 07/16/24 [Rx] Apixaban [Eliquis] 2.5 mg PO BID 30 Days #60 tab 08/29/24 [Rx] HYDROcodone/APAP 7.5-325MG [[place] 7.5-325] 1 - 2 tab PO Q6H PRN #32 tab 08/29/24 [Rx] Sennosides [Senokot] 2 tab PO DAILY PRN #60 tablet 08/29/24 [Rx] Magnesium Hydroxide [Milk of Magnesia] 2,400 mg PO DAILY PRN ml 08/31/24 [Rx] Follow up Appointment(s)/Referral(s): Alvaro Grant MD [Primary Care Provider] - 1-2 days Oscar Keys DO [Doctor of Osteopathic Medicine] - 2 Weeks Activity/Diet/Wound Care/Special Instructions: Toe- touch weightbearing with walker. Leave dressing intact. Dressing may be removed by home care nurse or by patient in 7 days. Then change dressing twice daily until follow up. May shower with initial dressing intact and after removal. If dressing become saturated, please remove. Gonzalo to be removed in 10-14 days. Please take Eliquis twice daily for 30 days to help prevent blood clots. Recommend use of compression stockings daily until follow up to help prevent swelling and blood clots. May remove at night before sleeping. Please follow-up with [facility] in 2 weeks and call with any questions or concerns, . Discharge Disposition: TRANSFER TO SNF/ECF
[2024-08-31] MEDS: TAMSULOSIN 0.4 MG CAP.ER.24H PO STA (16:20)
--- NOTE | 2024-09-01 03:02 | PN ---
PROGRESS NOTE SUBJECTIVE: This is an 84-year-old gentleman, who was admitted after right hip fracture, is being closely monitored. No chest pain. No palpitation. OBJECTIVE: VITAL SIGNS: Pulse is 66, blood pressure 109/66, respirations 18. CHEST: Clear to auscultation. CARDIOVASCULAR: S1, S2. ABDOMEN: Soft. NERVOUS SYSTEM: Nonfocal. LABORATORY DATA: Noted. ASSESSMENT: 1. Status post right hip fracture and closed reduction of intramedullary nailing of the right hip. 2. Fall. 3. Parkinson's. 4. History of bradycardia. 5. Multiple complex medical issues. RECOMMENDATIONS: Recommend to continue current management, continue symptomatic treatment. Closely follow with Orthopedic Surgery. DVT prophylaxis. PT/OT evaluation, possible ECF rehab. Further recommendations to follow. MMODL / IJN: [id number] /
[2024-09-01] MEDS ORDERED: TAMSULOSIN 0.4 MG CAP.ER.24H PO SCH (08:30)
--- NOTE | 2024-09-03 12:22 | CDI ---
Documentation Clarification Form Date: 09/03/2024 11:46:36 AM From: Phyllis Martinez RN, CCDS Email: [email or web address] Admit Date: 08/28/2024 12:37:00 PM Patient Name: Helder Murphy Visit Number: [id number] Discharge Date: 08/31/2024 05:38:00 PM ATTENTION: The Clinical Documentation Specialists (CDI) and [facility] Coding Staff appreciate your assistance in clarifying documentation. Please respond to the clarification below the line at the bottom and electronically sign. The CDI & [facility] Coding staff will review the response and follow-up if needed. Please note: Queries are made part of the Legal Health Record. If you have any questions, please contact the author of this message via ITS. Doctor Geovany E Sheet The patient had a drop in hemoglobin/hematocrit level. Please clarify if there is an additional diagnosis and/or clinical significance related to these lab values. 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 Presented with right hip pain after a trip and fall. Admitted with intertrochanteric fracture of the right hip, s/p closed reduction and intramedullary nailing right hip. Clinical indicators: 08/28-08/30 Hgb: 13.3-11.5-10.4 08/28-08/30 Hct: 40.1-35.7-31.2 08/29 Procedure: EBL 100mL Treatment: monitor H&H; 0.9 NS @70mL/hr 08/29-08/31 Is there an additional diagnosis and/or clinical significance related to the above lab result/information: [ ] Acute blood loss anemia [ ] No additional diagnosis/Not clinically significant [ ] Unable to determine [ ] Other, please specify MTDD
== END 2024-08-31 17:38 | DRG 482 ==
LOC: EC 10:24 → 4SSUR 12:37
PROVIDERS: ADMIT Orthopaedic Surgery; ATTEND Orthopaedic Surgery
PROC: 0QS636Z Reposition Right Upper Femur with Intramedullary Internal Fixation Device, Percutaneous Approach (ICD-10-PCS; principal; 2024-08-29 08:00)
DX: S72.141A Displaced intertrochanteric fracture of right femur, initial encounter for closed fracture (principal); I44.0 Atrioventricular block, first degree; I44.4 Left anterior fascicular block; R00.1 Bradycardia, unspecified; E07.9 Disorder of thyroid, unspecified; F17.200 Nicotine dependence, unspecified, uncomplicated; G20.C Parkinsonism, unspecified; I10 Essential (primary) hypertension; W01.0XXA Fall on same level from slipping, tripping and stumbling without subsequent striking against object, initial encounter; Z86.73 Personal history of transient ischemic attack (TIA), and cerebral infarction without residual deficits; Z79.890 Hormone replacement therapy; Z88.5 Allergy status to narcotic agent
CPT/HCPCS: 36415; 71045; 73501; 73502; 80048; 80053; 81003; 83036; 83735; 85025; 85610; 85730; 93005; 96361; 96374; 96375; 96376; 99285

== ENCOUNTER 2025-03-05 15:06 | Emergency (ER) | payer MEDICARE ==
[2025-03-05 15:30] VITALS: BP 102/66; RESP 15; TEMP 97.7
[2025-03-05 15:31] LABS: Glucose,Whole Blood 120 mg/dL (70-110)
[2025-03-05 15:58] LABS: Basophils # (A) 0.05 10*3/uL (0.00-0.10); Basophils % (A) 0.8 %; Eosinophils # (A) 0.28 10*3/uL (0.04-0.35); Eosinophils % (A) 4.5 %; HCT 36.9 % (39.6-50.0); HGB 12.2 g/dL (13.0-17.0); Lymphocytes # (A) 1.29 10*3/uL (0.90-5.00); Lymphocytes % (A) 20.9 %; MCH 30.3 pg (27.0-32.0); MCHC 33.1 g/dL (32.0-37.0); MCV 91.8 fL (80.0-97.0); Mean Platelet Volume 10.5 fL (9.5-12.2); Monocytes # (A) 0.52 10*3/uL (0.20-1.00); Monocytes % (A) 8.4 %; Neutrophils # (A) 4.01 10*3/uL (1.80-7.70); Neutrophils % (A) 65.2 %; Platelet Count 217 10*3/uL (140-440); RBC 4.02 10*6/uL (4.40-5.60); RDW 13.4 % (11.5-14.5); WBC 6.16 10*3/uL (4.50-10.00)
[2025-03-05 16:05] LABS: Prothrombin Time 11.1 sec (10.0-12.5)
--- NOTE | 2025-03-05 16:06 | ED ---
Dizziness HPI - General Chief Complaint: Dizziness Stated Complaint: Dizziness Time Seen by Provider: 03/05/25 15:41 Source: patient Mode of arrival: ambulatory Limitations: no limitations - History of Present Illness Initial Comments: This patient is an 85-year-old man who presents to have evaluation after an episode in which he felt weak and dizzy. It had come on after eating. The patient was sitting when he felt like he was very dizzy and unstable. The patient's noted that he looked pale and that he felt a little sweaty to her. She states that she tried to check his pulse but could not feel it. The patient did not note chest pain, dyspnea, palpitations or other symptoms. The symptoms seem to last a number of minutes and now he states he feels better after they had decided to come here. He has had similar episodes of this approximately 5 times in the past and had been told that he had vasovagal episodes. Again the patient feels back at baseline now he has not had chest pain, dyspnea, palpitations. MD Complaint: lightheadedness, near syncope Onset/Timin -: hour(s) Timing: sudden onset Description: lightheadedness, near-syncope History of Same: Yes History of Trauma: No Severity: moderate Improves With: remaining still Worsens With: nothing Associated Symptoms: diaphoresis - Related Data Home Medications Medication Instructions Recorded Confirmed Levothyroxine Sodium [Synthroid] 200 mcg PO DAILY 12/08/14 08/28/24 Cholecalciferol [Vitamin D3 (25 25 mcg PO DAILY 05/11/22 08/28/24 Mcg = 1000 Iu)] Fenofibrate Nanocrystallized 145 mg PO DAILY 05/11/22 08/28/24 [Fenofibrate] Ascorbic Acid [Vitamin C] 500 mg PO DAILY 07/20/23 08/28/24 Carbidopa/Levodopa 1.5 tab PO TID 07/20/23 08/28/24 [Carbidopa/Levodopa 25-100 Tab] Acetaminophen [Tylenol Extra 500 - 1,000 mg PO Q6H PRN 07/13/24 08/28/24 Strength] Previous Rx's Medication Instructions Recorded Sertraline [Zoloft] 25 mg PO DAILY 30 Days #30 tab 07/16/24 Sertraline [Zoloft] 100 mg PO DAILY 30 Days #30 tab 07/16/24 Apixaban [Eliquis] 2.5 mg PO BID 30 Days #60 tab 08/29/24 HYDROcodone/APAP 7.5-325MG [[place] 1 - 2 tab PO Q6H PRN #32 tab 08/29/24 7.5-325] Sennosides [Senokot] 2 tab PO DAILY PRN #60 tablet 08/29/24 Magnesium Hydroxide [Milk of 2,400 mg PO DAILY PRN ml 08/31/24 Magnesia] Allergies Allergy/AdvReac Type Severity Reaction Status Date / Time codeine Allergy Rash/Hives, Verified 03/05/25 15:30 swelling of face Review of Systems ROS Statement: Those systems with pertinent positive or pertinent negative responses have been documented in the HPI. ROS Other: All systems not noted in ROS Statement are negative. Constitutional: Reports: weakness. Denies: fever, chills Eyes: Denies: vision change Respiratory: Denies: cough, dyspnea, hemoptysis Cardiovascular: Reports: syncope (Near syncope). Denies: chest pain, palpitations, dyspnea on exertion, orthopnea, edema Gastrointestinal: Denies: abdominal pain, nausea, vomiting, diarrhea, melena, hematochezia Genitourinary: Denies: dysuria, hematuria Musculoskeletal: Denies: back pain Skin: Denies: rash Neurological: Denies: headache, weakness, numbness Hematological/Lymphatic: Denies: easy bleeding Past Medical History Past Medical History: CVA/TIA, Eye Disorder, Thyroid Disorder Additional Past Medical History / Comment(s): Cataract, parkinsons. Tremors History of Any Multi-Drug Resistant Organisms: None Reported Past Surgical History: Adenoidectomy, Joint Replacement, Tonsillectomy Additional Past Surgical History / Comment(s): Cataract R eye,R shoulder Past Anesthesia/Blood Transfusion Reactions: No Reported Reaction Past Psychological History: No Psychological Hx Reported Smoking Status: Never smoker Past Alcohol Use History: None Reported Past Drug Use History: None Reported - Past Family History Mother Family Medical History: No Reported History General Exam Limitations: no limitations General appearance: alert, in no apparent distress Head exam: Present: atraumatic, normocephalic Eye exam: Present: normal appearance. Absent: scleral icterus, conjunctival injection ENT exam: Present: normal oropharynx Neck exam: Present: normal inspection Respiratory exam: Present: normal lung sounds bilaterally. Absent: respiratory distress, wheezes, rales, rhonchi, stridor, accessory muscle use Cardiovascular Exam: Present: regular rate, normal rhythm, normal heart sounds. Absent: systolic murmur, diastolic murmur, rubs, gallop GI/Abdominal exam: Present: soft. Absent: distended, tenderness, guarding, rebound, rigid, mass Extremities exam: Present: normal inspection, normal capillary refill. Absent: pedal edema, calf tenderness Back exam: Present: normal inspection. Absent: CVA tenderness (R), CVA ten derness (L) Neurological exam: Present: alert Skin exam: Present: warm, dry, intact, normal color. Absent: rash Course Vital Signs 03/05/25 15:27 Temperature 97.7 F Pulse Rate 65 Respiratory 15 Rate Blood Pressure 102/66 O2 Sat by Pulse 99 Oximetry EKG Findings - EKG Results: EKG: interpreted by LYNDSEY, sinus rhythm EKG shows: bradycardia (Rate 59 bpm) - Blocks, Cougar, Hypertrophy, ST Abn: AV and intraventricular conduction: 1 AV block, left bundle branch block (fixed/intermittent, complete/incomplete) Medical Decision Making - Medical Decision Making On reevaluation, the patient feels well and would like to go home. I did discuss the lab results including mild elevation of BUN to creatinine and that I was going to order small amount of fluid but the patient states he will go home and take oral hydration. Discussed appropriate follow-up and further care as well as return parameters. The patient was offered admission for telemetry monitoring but declined stating he feels at his baseline and will follow-up. Was pt. sent in by a medical professional or institution ([facility]shad, DETAIL TECHNICIAN, urgent care, hospital, or [facility]...) When possible be specific @ -[No] Did you speak to anyone other than the patient for history (EMS, parent, family, police, friend...)? What history was obtained from this source @ -[The patient's gave some history Did you review nursing and triage notes (agree or disagree)? Why? @ -[I reviewed and agree with nursing and triage notes] Were old charts reviewed (outside hosp., previous admission, EMS record, old EKG, old radiological studies, urgent care reports/EKG's, [facility] records)? Report findings @ -[No old charts were reviewed] Differential Diagnosis (chest pain, altered mental status, abdominal pain women, abdominal pain men, vaginal bleeding, weakness, fever, dyspnea, syncope, headache, dizziness, GI bleed, back pain, seizure, CVA, palpatations, mental health, musculoskeletal)? @ -[Differential Syncope: Valvular disease, hypertrophic cardiomyopathy, pulmonary embolism, tamponade, tachycardia, bradycardia, ME, hypovolemia, hemorrhage, dissection, anemia, intracranial hemorrhage, seizure, hypoglycemia, carbon monoxide poisoning, this is not meant to be an all-inclusive list. EKG interpreted by me (3pts min.). @ -[As above] X-rays interpreted by me (1pt min.). @ -[None done] CT interpreted by me (1pt min.). @ -[None done] U/S interpreted by me (1pt. min.). @ -[None done] What testing was considered but not performed or refused? (CT, X-rays, U/S, labs)? Why? @ -[None] What meds were considered but not given or refused? Why? @ -[None] Did you discuss the management of the patient with other professionals (pro fessionals i.e. , PA, DETAIL TECHNICIAN, lab, RT, psych nurse, social security specialist, logistics solution manager, teacher, purchasing officer, caser)? Give summary @ -[No] Was smoking cessation discussed for >3mins.? @ -[No] Was critical care preformed (if so, how long)? @ -[No] Were there social determinants of health that impacted care today? How? (Homelessness, low income, unemployed, alcoholism, drug addiction, transportation, low edu. Level, literacy, decrease access to med. care, group home, rehab)? @ -[No] Was there de-escalation of care discussed even if they declined (Discuss DNR or withdrawal of care, Hospice)? DNR status @ -[No] What co-morbidities impacted this encounter? (DM, HTN, Smoking, COPD, CAD, Cancer, CVA, ARF, Chemo, Hep., AIDS, mental health diagnosis, sleep apnea, morbid obesity)? @ -[None] Was patient admitted / discharged? Hospital course, mention meds given and route, prescriptions, significant lab abnormalities, going to OR and other pertinent info. @ -[This patient is an 85-year-old man here after near syncopal episode. Workup does show mild elevation of BUN to creatinine ratio. The patient is offered some IV fluid but declines, see the note above. Undiagnosed new problem with uncertain prognosis? @ -[No] Drug Therapy requiring intensive monitoring for toxicity (Heparin, Nitro, Insuli n, Cardizem)? @ -[No] Were any procedures done? @ -[No] Diagnosis/symptom? @ -[Acute near syncopal episode Mild dehydration, acute Acute, or Chronic, or Acute on Chronic? @ -[Acute Uncomplicated (without systemic symptoms) or Complicated (systemic symptoms)? @ -[Uncomplicated Side effects of treatment? @ -[No] Exacerbation, Progression, or Severe Exacerbation? @ -[No] Poses a threat to life or bodily function? How? (Chest pain, USA, ME, pneumonia, PE, COPD, DKA, ARF, appy, cholecystitis, CVA, Diverticulitis, Homicidal, Suicidal, threat to staff... and all critical care pts) @ -[No] All treatments are based on ideal body weight as in ED triage - Lab Data Result diagrams: 03/05/25 15:48 03/05/25 15:48 Lab Results 03/05/25 03/05/25 03/05/25 Range/Units 15:31 15:48 15:48 WBC 6.16 (4.50-10.00) 10*3/uL RBC 4.02 L (4.40-5.60) 10*6/uL Hgb 12.2 L (13.0-17.0) g/dL Hct 36.9 L (39.6-50.0) % MCV 91.8 (80.0-97.0) fL MCH 30.3 (27.0-32.0) pg MCHC 33.1 (32.0-37.0) g/dL Plt Count 217 (140-440) 10*3/uL MPV 10.5 (9.5-12.2) fL Immature Gran % (Auto) 0.2 % Neutrophils % 65.2 % Lymphocytes % 20.9 % Monocytes % 8.4 % Eosinophils % 4.5 % Basophils % 0.8 % Immature Gran # 0.01 (0.00-0.04) 10*3/uL Neutrophils # 4.01 (1.80-7.70) 10*3/uL Lymphocytes # 1.29 (0.90-5.00) 10*3/uL Monocytes # 0.52 (0.20-1.00) 10*3/uL Eosinophils # 0.28 (0.04-0.35) 10*3/uL Basophils # 0.05 (0.00-0.10) 10*3/uL PT 11.1 (10.0-12.5) sec INR 1.0 (<1.2) Sodium (137-145) mmol/L Potassium (3.5-5.1) mmol/L Chloride (98-107) mmol/L Carbon Dioxide (22-30) mmol/L Anion Gap mmol/L BUN (9-20) mg/dL Creatinine (0.66-1.25) mg/dL Est GFR (CKD-EPI)AfAm (>60 ml/min/1.73 sqM) Est GFR (CKD-EPI)NonAf (>60 ml/min/1.73 sqM) Glucose (74-99) mg/dL POC Glucose (mg/dL) 120 H (70-110) mg/dL POC Glu Siding Installer ID Hinton Guy Calcium (8.4-10.2) mg/dL Total Bilirubin (0.2-1.3) mg/dL AST (17-59) U/L ALT (4-49) U/L Alkaline Phosphatase (38-126) U/L Troponin I (0.000-0.034) ng/mL Total Protein (6.3-8.2) g/dL Albumin (3.5-5.0) g/dL 03/05/25 03/05/25 Range/Units 15:48 15:48 WBC (4.50-10.00) 10*3/uL RBC (4.40-5.60) 10*6/uL Hgb (13.0-17.0) g/dL Hct (39.6-50.0) % MCV (80.0-97.0) fL MCH (27.0-32.0) pg MCHC (32.0-37.0) g/dL Plt Count (140-440) 10*3/uL MPV (9.5-12.2) fL Immature Gran % (Auto) % Neutrophils % % Lymphocytes % % Monocytes % % Eosinophils % % Basophils % % Immature Gran # (0.00-0.04) 10*3/uL Neutrophils # (1.80-7.70) 10*3/uL Lymphocytes # (0.90-5.00) 10*3/uL Monocytes # (0.20-1.00) 10*3/uL Eosinophils # (0.04-0.35) 10*3/uL Basophils # (0.00-0.10) 10*3/uL PT (10.0-12.5) sec INR (<1.2) Sodium 137 (137-145) mmol/L Potassium 3.9 (3.5-5.1) mmol/L Chloride 102 (98-107) mmol/L Carbon Dioxide 27 (22-30) mmol/L Anion Gap 8 mmol/L BUN 22 H (9-20) mg/dL Creatinine 1.11 (0.66-1.25) mg/dL Est GFR (CKD-EPI)AfAm 69 (>60 ml/min/1.73 sqM) Est GFR (CKD-EPI)NonAf 60 (>60 ml/min/1.73 sqM) Glucose 118 H (74-99) mg/dL POC Glucose (mg/dL) (70-110) mg/dL POC Glu Siding Installer ID Calcium 9.2 (8.4-10.2) mg/dL Total Bilirubin 0.5 (0.2-1.3) mg/dL AST 22 (17-59) U/L ALT 7 (4-49) U/L Alkaline Phosphatase 52 (38-126) U/L Troponin I <0.012 (0.000-0.034) ng/mL Total Protein 6.5 (6.3-8.2) g/dL Albumin 3.9 (3.5-5.0) g/dL Disposition Clinical Impression: Near syncope, Dehydration Disposition: HOME SELF-CARE Condition: Good Instructions (If sedation given, give patient instructions): Near Syncope (ED) Is patient prescribed a controlled substance at d/c from ED?: No Referrals: Alvaro Grant MD [Primary Care Provider] - 1-2 days Buck Gaspar MD [STAFF PHYSICIAN] - 1-2 days
[2025-03-05 16:08] LABS: ALT 7 U/L (4-49); AST 22 U/L (17-59); African American GFR (CKD) 69 (>60 ml/min/1.73 sqM); Albumin 3.9 g/dL (3.5-5.0); Alkaline Phosphatase 52 U/L (38-126); Anion Gap 8 mmol/L; Blood Urea Nitrogen 22 mg/dL (9-20); Calcium 9.2 mg/dL (8.4-10.2); Carbon Dioxide 27 mmol/L (22-30); Chloride 102 mmol/L (98-107); Glucose 118 mg/dL (74-99); Non-African American GFR(CKD) 60 (>60 ml/min/1.73 sqM); Potassium 3.9 mmol/L (3.5-5.1); Sodium 137 mmol/L (137-145); Total Bilirubin 0.5 mg/dL (0.2-1.3); Total Protein 6.5 g/dL (6.3-8.2)
[2025-03-05 16:15] VITALS: PULSE 65
[2025-03-05] MEDS ORDERED: SODIUM CHLORIDE 0.9% 500 ML 500 ML IV STA (16:18)
== END 2025-03-05 17:18 | disposition home or self-care (01) ==
LOC: EC 15:06
DX: R55 Syncope and collapse (principal); E86.0 Dehydration; I44.7 Left bundle-branch block, unspecified; R00.1 Bradycardia, unspecified; Z88.5 Allergy status to narcotic agent; Z86.73 Personal history of transient ischemic attack (TIA), and cerebral infarction without residual deficits
CPT/HCPCS: 36415; 80053; 84484; 85025; 85610; 93005; 99284